=== PATIENT | male | born 1940 | race Caucasian/White ===

== ENCOUNTER 2017-02-14 14:18 | Inpatient (IN) | payer MEDICARE ==
[2017-02-14 14:57] LABS: Hematocrit 49.7 % (42.0-52.0); Red Blood Cell (RBC) Count 5.29 mill/uL (4.70-6.10); White Blood Cell (WBC) Count 21.2 thou/uL (4.8-10.8)
[2017-02-14 15:03] LABS: Prothrombin Time 13.8 SEC (12.0-14.7)
[2017-02-14 15:04] LABS: PTT 27.4 SEC (22.9-36.1)
[2017-02-14 15:14] LABS: Band 16 % (5-11); Neutrophil 69 % (42-75); Reactive Lymphocytes 3 % (0-10)
[2017-02-14 15:26] LABS: ALT (SGPT) 19 U/L (8-55); AST (SGOT) 25 U/L (5-34); Alkaline Phosphatase 80 U/L (40-150); Anion Gap 20 mmol/L (10-20); BUN (Urea Nitrogen) 16 mg/dL (8.4-25.7); Bilirubin, Total 0.9 mg/dL (0.2-1.2); Calc. Creatinine Clearance 0 mL/min (70-130); Calcium 10.2 mg/dL (7.8-10.44); Carbon Dioxide 20 mmol/L (23-31); Chloride 101 mmol/L (98-107); Estimated GFR-MDRD 38; Globulin 5.2 g/dL (2.4-3.5); Protein, Total 9.5 g/dL (5.8-8.1)
[2017-02-14] MEDS ORDERED: ISOVUE-370 76%-LOCM 1 ML ONE (16:02)
[2017-02-14] MEDS ORDERED: Iopamidol 370 76% 50 ML VIAL FS ONE (16:02)
[2017-02-14] MEDS ORDERED: Ondansetron HCl/PF 4 MG/2 ML Vial ONE (17:19)
[2017-02-14] MEDS ORDERED: Sodium Chloride 0.9% 1,000 ML IV SCH (20:48)
--- NOTE | 2017-02-14 21:37 | CT ---
CT ABDOMEN WITH IV CONTRAST CT PELVIS WITH IV CONTRAST 02/14/17 HISTORY: Ulcerative colitis post colectomy. Chronic diarrhea. Patient presents with hematochezia for multiple days. Nausea and vomiting started today. Patient also reports abdominal pain that is new since last week. COMPARISON: 09/02/07. FINDINGS: There is bibasilar atelectasis. There is evidence of prior granulomatous disease with right hilar ca lcified lymph nodes and calcified granuloma at the right lung base. Calcified granuloma is also seen within the right hepatic lobe. Vascular calcifications are seen in the coronary arteries as well as involving the abdominal aorta a nd iliac arteries. There is an increased density structure in the region of the gallbladder with peripheral calcificati ons. This does not have a normal appearance for gallbladder. 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 However, this does not have normal appearance of the gallbladder and is very small in size with this ovoid increased densi ty structure measuring 3 cm x 2.1 cm. There is decreased attenuation of the liver which may be related to mild fatty infiltration. The spl een, pancreas, bilateral adrenal glands, kidneys, and urinary bladder demonstrate a normal CT appear ance. There is evidence of a colectomy with residual colon seen within the lower midline of the pelvis wit h postsurgical changes related to anastomosis of the rectum. There is mild thickening involving the residual colon which could be related to colitis. Areas of minimal stranding is seen adjacent to por tions of the colon. The opacified small bowel is normal in caliber. There is a large ventral abdominal wall hernia which contains intra-abdominal fat and loops of small bowel, but there is no bowel obstruction and the defect is large in size. No free fluid or fluid collection is seen in the abdomen or pelvis. IMPRESSION: 1. Colectomy with only small amount of remaining colon. The residual colon is thickened with mi nimal stranding adjacent to a portion of the colon. Findings are worrisome for colitis. There is no fluid collection seen to suggest an abscess. No free intraperitoneal gas is identified. 2. Increased density oval shaped structure in the region of the gallbladder fossa. This does no t have the normal appearance for the gallbladder, but may represent a decompressed gallbladder and i ncreased density may be related to sludge within the decompressed gallbladder; however, the sousa o f this structure are calcified. 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 Correlation for p rior surgery in the region of the gallbladder is recommended. 3. Large ventral abdominal wall hernia which contains fat and multiple loops of small bowel. Th ere is no bowel obstruction present. POS: ZACH
[2017-02-14] MEDS ORDERED: Dextrose 5% in Water 1,000 ML IV PRN (22:13)
[2017-02-14] MEDS ORDERED: Dextrose 50% Abboject 50 ML SYRINGE SLOW IVP PRN (22:13)
[2017-02-14] MEDS: Sodium Chloride 0.9% 1,000 ML IV SCH (22:25)
--- NOTE | 2017-02-14 23:13 | HP ---
PRIMARY CARE PHYSICIAN: Dr. Brown. CHIEF COMPLAINT: Diarrhea and abdominal pain. HISTORY OF PRESENT ILLNESS: Mr. Basurto is a pleasant 76-year-old gentleman who presented to the [facility] room after having a severe bout of diarrhea starting yesterday. He said he had 3 fairly large diarrhea stools yesterday and then 3 this morning. He says that he was going to the table to make a log of his diarrhea as his doctorate of chiropractic had requested. When he stood up to do this, he got very dizzy and lightheaded and almost blacked out. He says that he basically fell to the ground and then had diarrhea all the way from one end of the room to the other. He also says that he has been having some blood in his stools almost daily as well as cramping abdominal pain and low grade fever . Dr. Gore was notified from the emergency room and it is requested that he be admitted and starte d on IV steroids. No antibiotics at this time for recurrence of ulcerative colitis. The patient sa ys that his problems with ulcerative colitis started in September when he was diagnosed and he has been roman ving some difficulty with diarrhea, and blood in the stool off and on since then. REVIEW OF SYSTEMS: Constitutional: There have been subjective low-grade fevers. He has had a coup le of episodes of night sweats, no weight loss. HEENT: He denies any headaches. He has had some d izziness and lightheadedness, no sore throat, rhinorrhea, neck pain, no adenopathy. Pulmonary: No hemoptysis, no cough, no wheezing. Cardiovascular: He says he has had occasional chest pain off an d on and some dyspnea, but he says he has been seen by grocery manager in the past as well as a pulmono logist and was told that some of his symptoms are due to his diaphragm and after he had surgery, he has a decrease in his diaphragmatic excursion. Gastrointestinal: As the history of present illness . Genitourinary: No urinary frequency, hematuria, no hesitancy. Neurologic: No focal weakness, n umbness, no seizures. Psychiatric: No symptoms of anxiety or depression. Skin/Integument: No ski n changes. No rash. PAST MEDICAL HISTORY: Significant for ulcerative colitis, diabetes mellitus, cerebral vascular dise ase which is secondary to antiphospholipid syndrome. PAST SURGICAL HISTORY: He has had a colectomy and colostomy, but then had a reanastomosis, parathyr oidectomy and artificial lenses placed in his eyes. ALLERGIES: No known drug allergies. SOCIAL HISTORY: He is a former smoker. He quit 9 years ago. He used to smoke a pack a day for abo ut 50 years. Denies any alcohol use. He is . FAMILY HISTORY: No history of any inheritable diseases. CURRENT MEDICATIONS: Include aspirin 81 mg 2 tablets daily, pravastatin 10 mg daily, metformin 1000 mg daily, Uceris 9 mg daily, losartan 25 mg daily, Lomotil 2.5 mg daily, VSL#3 112.5 billion cell d aily. PHYSICAL EXAMINATION: GENERAL: He is alert and oriented. He appears to be in no acute distress. VITAL SIGNS: Blood pressure 126/79, heart rate 106, respiratory rate of 20, temperature is 97.7. HEENT: Pupils are equal, round, and reactive. Extraocular muscles are intact. Sclerae are anicter ic. Throat no erythema, no exudates. NECK: No adenopathy, no bruits. LUNGS: Clear. No wheezing, no rales. CARDIOVASCULAR: He has a normal S1, S2. There is no S3 or S4. No murmurs, clicks or rubs. ABDOMEN: Soft. He has some diffuse tenderness. There is no rebound or guarding. EXTREMITIES: There is no edema. NEUROLOGICALLY: The exam is nonfocal. SIGNIFICANT LABORATORY DATA: White blood cell count was 21.2, hemoglobin 16.5, hematocrit is 49.7, platelet count is 399. Sodium 136, potassium 5.1, chloride is 101, CO2 is 20, BUN of 16, creatinine 1.7 and glucose was 200, lactic acid was elevated at 3.0. INR was 1.1. ASSESSMENT AND PLAN: This is a 76-year-old gentleman that presents with acute on chronic diarrhea, which has been worse in the last few days. He also suffered a presyncopal episode likely as a resul t of volume depletion from the diarrhea. He will be admitted to the medical floor, started on IV fl uids as well as IV steroids and we will consult Gastroenterology for further recommendations. Stool studies have already been done from the emergency room for C. diff and Campylobacter to rule out light perimposed infection. Further recommendations will be dependent on how the patient responds to the IV steroids.
[2017-02-15] MEDS: Acetaminophen 325 MG TAB PO PRN ×2 (00:07→05:41)
[2017-02-15 05:57] LABS: Anion Gap 12 mmol/L (10-20); BUN (Urea Nitrogen) 16 mg/dL (8.4-25.7); Calc. Creatinine Clearance 70 mL/min (70-130); Calcium 8.5 mg/dL (7.8-10.44); Carbon Dioxide 22 mmol/L (23-31); Chloride 106 mmol/L (98-107); Estimated GFR-MDRD 51
[2017-02-15 06:15] LABS: #Eosinphils 0.3 thou/uL (0.0-0.7); #Lymphocytes 3.2 thou/uL (1.20-3.40); #Neutrophils 6.3 thou/uL (1.40-6.50); %Basophils 0.3 % (0.0-1.0); %Lymphocytes 29.4 % (21.0-51.0); %Monocytes 9.5 % (0.0-10.0); Mean Platelet Volume 7.5 fL (7.4-10.4); Red Blood Cell (RBC) Count 4.16 mill/uL (4.70-6.10); White Blood Cell (WBC) Count 10.9 thou/uL (4.8-10.8)
[2017-02-15] MEDS: Enoxaparin Sodium 30 MG/0.3 ML SYRINGE SC SCH (09:32)
[2017-02-15] MEDS: Sodium Chloride 0.9% 1,000 ML IV SCH (12:28)
[2017-02-15] MEDS: HumaLOG 300 UNITS/3 ML VIAL SC PRN ×2 (12:28→18:03)
--- NOTE | 2017-02-15 15:54 | PDOC.PN ---
- Subjective Encounter Start Date: 02/15/17 Encounter Start Time: 14:20 Subjective: still has diarrhea with blood in it -: has had atleast 6 overnight loose stools -: no sob - Objective Resuscitation Status: Resuscitation Status FULL:Full Resuscitation MAR Reviewed: Yes Vital Signs & Weight: Vital Signs (12 hours) Temp Pulse Resp BP Pulse Ox 02/15/17 11:46 97.5 F L 66 16 127/73 02/15/17 08:16 97.1 F L 67 18 106/65 94 L 02/15/17 08:00 97.1 F L 67 18 02/15/17 04:00 98.4 F 71 20 119/72 93 L Weight Weight 231 lb 6 oz I&O: 02/14/17 02/15/17 02/16/17 06:59 06:59 06:59 Intake Total 1470 Balance 1470 Result Diagrams: 02/15/17 05:21 02/15/17 05:21 Additional Labs: Accuchecks 02/15/17 02/15/17 11:45 06:06 POC Glucose 256 H 141 H Phys Exam - Physical Examination HEENT: PERRLA, sclera anicteric dry mucosa Neck: no JVD, supple Respiratory: no wheezing, no rales Cardiovascular: RRR, no significant murmur Gastrointestinal: soft, non-tender, positive bowel sounds Musculoskeletal: no edema, pulses present Neurological: non-focal, moves all 4 limbs Psychiatric: A&O x 3 Dx/Plan (1) Bacteremia due to Klebsiella pneumoniae Code(s): R78.81 - BACTEREMIA Status: Acute (2) ulcerative colitis flare Status: Acute (3) Sepsis Code(s): A41.9 - SEPSIS, UNSPECIFIED ORGANISM Status: Acute Comment: sec to klebsiella (4) DM type 2 (diabetes mellitus, type 2) Status: Chronic Qualifiers: Diabetes mellitus complication status: with unspecified complications Diabetes mellitus cheese cooker insulin use: without mcfp use Qualified Code( s): E11.8 - Type 2 diabetes mellitus with unspecified complications (5) MAY (acute kidney injury) Code(s): N17.9 - ACUTE KIDNEY FAILURE, UNSPECIFIED Status: Acute Comment: resolving (6) Dyslipidemia Code(s): E78.5 - HYPERLIPIDEMIA, UNSPECIFIED Status: Chronic (7) Metabolic acidosis Code(s): E87.2 - ACIDOSIS Status: Acute - Plan urinalysis, culture stat -: unclear source of klebsiella bacteremia at present -: CT chest to r/o infiltrate -: wbc down to 10 from 21 -: cefepime and levaquin, gentle hydration * . 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 Has large ventral hernia. Review of Systems - Medications/Allergies Allergies/Adverse Reactions: Allergies Allergy/AdvReac Type Severity Reaction Status Date / Time No Known Allergies Allergy Verified 02/14/17 21:20 Medications: Current Medications Acetaminophen (Tylenol) 650 mg PO Q4H PRN PRN Reason: Headache/Fever or Pain Last Admin: 02/15/17 05:41 Dose: 650 mg Dextrose/Water (Dextrose 50%) 25 gm SLOW IVP PRN PRN PRN Reason: Hypoglycemia Enoxaparin Sodium (Lovenox) 30 mg SC 0900 [facility] Last Admin: 02/15/17 09:32 Dose: 30 mg Glucagon (Glucagon) 1 mg IM PRN PRN PRN Reason: Hypoglycemia Dextrose/Water (D5w) 1,000 mls @ 0 mls/hr IV .Q0M PRN; As Directed PRN Reason: Hypoglycemia Sodium Chloride (Normal Saline 0.9%) 1,000 mls @ 75 mls/hr IV .[id number] [facility] Last Admin: 02/15/17 12:28 Dose: 1,000 mls Cefepime HCl 1 gm/ Sodium (Chloride) 100 mls @ 200 mls/hr IVPB 0400,1600 [facility] Levofloxacin 500 mg/ Device 100 mls @ 100 mls/hr IVPB Q24HR [facility] Insulin Human Lispro (Humalog) 0 units SC .MODERATE SLIDING SC PRN PRN Reason: Moderate Correctional Scale Last Admin: 02/15/17 12:28 Dose: 6 unit Insulin Human Lispro (Humalog) 0 units SC .BEDTIME SLIDING SC PRN PRN Reason: Bedtime Correctional Scale Methylprednisolone Sodium Succinate (Solu-Medrol) 20 mg IVP Q8HR [facility] Last Admin: 02/15/17 14:42 Dose: 20 mg Sodium Chloride (Flush - Normal Saline) 10 ml IVF Q12HR [facility] Last Admin: 02/15/17 09:33 Dose: 10 ml Sodium Chloride (Flush - Normal Saline) 10 ml IVF PRN PRN PRN Reason: Saline Flush
--- NOTE | 2017-02-15 17:12 | CT ---
CT OF THE THORAX WITHOUT IV CONTRAST: INDICATION: Concern for an infiltrate. FINDINGS: The exam is compared to a prior CT of the chest dated 05/03/08. FINDINGS: There are prominent calcified lymph nodes within the mediastinum and right hilar region. There are scattered vascular calcifications involving the aorta and coronary arteries. There is calcified gra nuloma within the right lower lobe. There is scattered subsegmental volume loss within both lower l obes. There is airspace opacity seen within the inferior lingula. No pleural effusion is evident. No pneumothorax is demonstrated. The porcelain gallbladder is similar-appearing. No definite acute osseous abnormality is evident. IMPRESSION: 1. Airspace opacity in the region of the lingula could be related to subsegmental volume loss; ibarra cody, early infiltrate cannot be entirely excluded. Recommend correlation with the clinical exam. 2. Findings of prior granulomatous disease. 3. Calcified wall seen within the gallbladder suspicious for porcelain gallbladder. 4. Other chronic findings as above. POS: ZACH
[2017-02-15] MEDS: Cefepime 1 GM in Sodium Chloride 0.9% 100 ML IVPB SCH (17:17)
[2017-02-15 17:18] LABS: Bilirubin Negative (Negative); Blood, Urine Small (Negative); Glucose, Urine (Dipstick) 250 mg/dL (Negative); Ketone, Urine Negative (Negative); Nitrite Negative (Negative); Protein, Urine (Dipstick) Negative (Neg-Trace); Urobilinogen 0.2 mg/dL (0.2-1.0)
[2017-02-15 17:19] LABS: Bacteria/HPF None Seen HPF (None Seen); Hyaline Casts/LPF 0-3 HYALINE CAST LPF (0-3 Hyaline); Squamous Epithelial None Seen HPF (0-3); WBC/HPF 0-3 HPF (0-3)
--- NOTE | 2017-02-15 18:05 | CON ---
DATE OF CONSULTATION: 02/15/2017 GASTROENTEROLOGY CONSULTATION CHIEF COMPLAINT: Worsening diarrhea, blood in the stool, and syncopal episode. HISTORY OF PRESENT ILLNESS: Mr. Basurto is a 76-year-old man who has had persistent diarrhea since . He has a history of ulcerative colitis and has been having adjustment of outpatient medicati ons after this point with inadequate control. Yesterday morning, he woke up early in the morning an d had multiple liquidy stools. He then had a syncopal episode and at that point, decided to come on to the hospital for further care. He has had some generalized aching abdominal pain, but no focal p ain. He did have an episode of nausea and vomiting yesterday morning, but that has since resolved. He has been on a full liquid diet and requesting solid food. He has had red blood mixed with water y stools; however, since starting IV steroids last night, today the stools have become less bloody a nd they are still liquidy and up to multiple times per hour. He has had around 5-pound weight loss net over the last 6 months, but his weight has fluctuated over that time period. He has had no feve r associated with this episode. No chest pain or shortness of breath. Regarding ulcerative colitis, he underwent colon resection in 2007 for diverticulitis. He ultimatel y ended up at about 60 cm of colon removed at that time. He presented in 2012 with diarrhea. Colon oscopy was performed which showed chronic colitis of the rectum and also just above the anastomosis between the right colon and the rectum. The cecum is about 30 cm from the anal verge. He was treat ed with Lialda 2 pills per day and ultimately went in remission. He returned in 07/2016 with hemato chezia and diarrhea. Colonoscopy was repeated on 08/10/2016 which showed distal chronic proctitis. Again, the biopsies were suggestive of ulcerative colitis. He was given Canasa but the symptoms fa il to improve. He in fact had discomfort placing the suppositories and this was stopped. He held m etformin without improvement. He was given Uceris initially with some improvement and ultimately en ded up with a repeat course of Uceris, which is on now, but has had inadequate response. He gets di arrhea with some leakage of red stool. Higher doses of Lialda did not help and perhaps made things worse, so this has been held over the last week and verified, that is not a paradoxical reaction to it. He has had no improvement after withholding the Lialda for a week. PAST MEDICAL HISTORY: Chronic ulcerative proctitis, diabetes mellitus type 2, stroke associated wit h antiphospholipid syndrome, hypertension, hyperlipidemia, and osteoarthritis. PAST SURGICAL HISTORY: Colon resection and colostomy reversal. He is ultimately had about 60 cm of his colon resected. His cecum was at 30 cm from the anal verge. He has had a parathyroidectomy. He had incisional hernia repair with mesh; however, this has since recurred. FAMILY HISTORY: Negative for GI malignancy. SOCIAL HISTORY: No alcohol, tobacco or drugs. ALLERGIES: GLYBURIDE, TRADJENTA. MEDICATIONS PRIOR TO ADMISSION: Uceris 9 mg daily, VSL 1 packet twice a day, currently Lialda 3 tab lets daily is on hold. Has been taking Lomotil as needed, scheduled up to 5 times per day. He take s aspirin, pravastatin, losartan, and currently metformin has been held as well. REVIEW OF SYSTEMS: Negative x10 systems reviewed except as stated in the history of present illness . PHYSICAL EXAMINATION: VITAL SIGNS: Temperature 97.5, pulse 66, blood pressure 127/73. GENERAL: He is in no acute distress. He is alert and oriented x3. EYES: Have no scleral icterus. OROPHARYNX: Clear without lesions. NECK: No cervical or supraclavicular lymphadenopathy. LUNGS: Clear to auscultation bilaterally. HEART: Regular rate and rhythm without murmur. ABDOMEN: Soft, nontender, and nondistended. Bowel sounds are present. EXTREMITIES: No lower extremity edema. Stool studies are negative for C. diff, positive for lactof holden, negative for Campylobacter and Shiga toxin, culture has been previously negative. LABORATORY DATA: White blood cell count is 10.9, down from 21 yesterday; hemoglobin is 13.1, down f rom 16.5 yesterday; platelets 314. INR 1.1, creatinine 1.37 down from 1.76 yesterday, albumin 4.3. IMPRESSION: 1. Exacerbation of chronic ulcerative colitis. This is complicated by the previous resection of hi s colon with decreased absorptive capacity. He has had active inflammation in the rectum confirmed by colonoscopy this past August. His symptoms really have not been controlled since that time. He h as failed to respond to Lialda and Canasa. He has failed to respond to Uceris. He has previously b een hesitant to take additional immunosuppressive medications; however, at this point he has failed outpatient treatment with medical therapy and he is requiring IV steroids and I think he will need t o start an anti-TNF as the next step. He has not had improvement by withholding Lialda or withholdi ng metformin. CT scan shows continued thickening and inflammatory changes around the rectum. 2. He had a CT scan performed in the ER yesterday which shows a new change of contracted gallbladde r, possibly with calcified sousa or possible to porcelain gallbladder. He has not had a prior gallb ladder resection. This will require additional imaging once we get the acute flare of the ulcerativ e colitis under better control. RECOMMENDATIONS: 1. Solu-Medrol IV 20 mg q.8 hours. 2. Advance his diet. 3. I would expect that he should improve over the next couple of days on IV steroids. At that poin t, we will need to start an anti-TNF. He and his have concerns about getting back to the [facility] or outpatient center for infusions with Remicade. Therefore, Humira might be a better option fo r him. 4. Over the next couple of days, eventually get his diarrhea under better control with the steroids . We will need to repeat imaging of the gallbladder and I will discuss this with Dr. Arteaga as phyllis bustos
[2017-02-16] MEDS: Sodium Chloride 0.9% 1,000 ML IV SCH ×3 (04:28→20:53)
[2017-02-16] MEDS: Cefepime 1 GM in Sodium Chloride 0.9% 100 ML IVPB SCH ×2 (04:28→15:19)
[2017-02-16] MEDS: HumaLOG 300 UNITS/3 ML VIAL SC PRN ×4 (06:25→21:01)
[2017-02-16] MEDS: Enoxaparin Sodium 30 MG/0.3 ML SYRINGE SC SCH (08:56)
--- NOTE | 2017-02-16 16:40 | PDOC.PN ---
- Subjective Encounter Start Date: 02/16/17 Encounter Start Time: 13:00 Subjective: is sitting in chair, daughter at bedside -: no abd pain, still has diarrhea, no nausea -: no cough or expectoration, no urinary freq or urgency - Objective Resuscitation Status: Resuscitation Status FULL:Full Resuscitation MAR Reviewed: Yes Vital Signs & Weight: Vital Signs (12 hours) Temp Pulse Resp BP Pulse Ox 02/16/17 11:47 97.6 F 62 16 153/78 H 95 02/16/17 08:00 97.2 F L 66 16 02/16/17 07:56 97.2 F L 66 16 135/75 95 Weight Weight 231 lb 6 oz I&O: 02/15/17 02/16/17 02/17/17 06:59 06:59 06:59 Intake Total 1470 1400 Balance 1470 1400 Result Diagrams: 02/15/17 05:21 02/15/17 05:21 Additional Labs: Accuchecks 02/16/17 02/16/17 02/16/17 16:08 11:11 04:10 POC Glucose 220 H 226 H 246 H 02/15/17 02/15/17 21:21 17:16 POC Glucose 199 H 167 H Phys Exam - Physical Examination HEENT: PERRLA, moist MMs Neck: no JVD, supple Respiratory: no wheezing, no rales Cardiovascular: RRR, no significant murmur Gastrointestinal: soft, non-tender, positive bowel sounds Musculoskeletal: no edema, pulses present Neurological: non-focal, moves all 4 limbs Psychiatric: A&O x 3 Dx/Plan (1) Bacteremia due to Klebsiella pneumoniae Code(s): R78.81 - BACTEREMIA Status: Acute (2) ulcerative colitis flare Status: Acute (3) Sepsis Code(s): A41.9 - SEPSIS, UNSPECIFIED ORGANISM Status: Acute Comment: sec to klebsiella (4) DM type 2 (diabetes mellitus, type 2) Status: Chronic Qualifiers: Diabetes mellitus complication status: with unspecified complications Diabetes mellitus workforce manager insulin use: without mcfp use Qualified Code( s): E11.8 - Type 2 diabetes mellitus with unspecified complications (5) MAY (acute kidney injury) Code(s): N17.9 - ACUTE KIDNEY FAILURE, UNSPECIFIED Status: Acute Comment: resolving (6) Dyslipidemia Code(s): E78.5 - HYPERLIPIDEMIA, UNSPECIFIED Status: Chronic (7) Metabolic acidosis Code(s): E87.2 - ACIDOSIS Status: Acute (8) UTI (urinary tract infection) Status: Acute Qualifiers: Urinary tract infection type: acute cystitis Hematuria presence: without hematuria Qualified Code(s): N30.00 - Acute cystitis without hematuria - Plan is on cefepime and levaquin -: has klebsiella 1/2 blood cs -: urine cs was sent yesterday after starting antibiotics -: is on steroids for UC flare up -: may have to complete antibiotics prior to starting humira * . Review of Systems - Medications/Allergies Allergies/Adverse Reactions: Allergies Allergy/AdvReac Type Severity Reaction Status Date / Time No Known Allergies Allergy Verified 02/14/17 21:20 Medications: Current Medications Acetaminophen (Tylenol) 650 mg PO Q4H PRN PRN Reason: Headache/Fever or Pain Last Admin: 02/15/17 05:41 Dose: 650 mg Dextrose/Water (Dextrose 50%) 25 gm SLOW IVP PRN PRN PRN Reason: Hypoglycemia Enoxaparin Sodium (Lovenox) 30 mg SC 0900 [facility] Last Admin: 02/16/17 08:56 Dose: 30 mg Glucagon (Glucagon) 1 mg IM PRN PRN PRN Reason: Hypoglycemia Dextrose/Water (D5w) 1,000 mls @ 0 mls/hr IV .Q0M PRN; As Directed PRN Reason: Hypoglycemia Sodium Chloride (Normal Saline 0.9%) 1,000 mls @ 75 mls/hr IV .[id number] [facility] Last Admin: 02/16/17 14:03 Dose: Not Given Cefepime HCl 1 gm/ Sodium (Chloride) 100 mls @ 200 mls/hr IVPB 0400,1600 [facility] Last Admin: 02/16/17 15:19 Dose: 100 mls Levofloxacin 500 mg/ Device 100 mls @ 100 mls/hr IVPB Q24HR [facility] Last Admin: 02/16/17 16:09 Dose: 100 mls Insulin Human Lispro (Humalog) 0 units SC .MODERATE SLIDING SC PRN PRN Reason: Moderate Correctional Scale Last Admin: 02/16/17 16:12 Dose: 4 unit Insulin Human Lispro (Humalog) 0 units SC .BEDTIME SLIDING SC PRN PRN Reason: Bedtime Correctional Scale Methylprednisolone Sodium Succinate (Solu-Medrol) 20 mg IVP Q8HR [facility] Last Admin: 02/16/17 13:18 Dose: 20 mg Sodium Chloride (Flush - Normal Saline) 10 ml IVF Q12HR [facility] Last Admin: 02/16/17 08:59 Dose: Not Given Sodium Chloride (Flush - Normal Saline) 10 ml IVF PRN PRN PRN Reason: Saline Flush
--- NOTE | 2017-02-16 18:42 | PRG ---
DATE OF SERVICE: 02/16/2017 SUBJECTIVE: Mr. Basurto's diarrhea is improving. He feels better now than he has in years. He has n o abdominal pain. OBJECTIVE: VITAL SIGNS: Temperature 98.3, pulse 65, blood pressure 126/66. GENERAL: He is in no acute distress. He is alert and oriented x3. LUNGS: Clear to auscultation bilaterally. HEART: Regular rate and rhythm. ABDOMEN: Soft, nontender, nondistended, bowel sounds are present. EXTREMITIES: Trace lower extremity edema. IMPRESSION: 1. Exacerbation of chronic ulcerative colitis. He has had marked improvement with intravenous ster oids. I would continue these for another day or two and then transition to prednisone. Plan will b e to follow up in the office after a couple of weeks and depending on his response to the prednisone if this does initiate remission, then we could potentially restart 5-ASA compound and maintain jaswinder ssion with that. If he flares again after that, they will likely need to start Humira. I would rat her avoid Imuran. 2. Contractured gallbladder with calcified sousa. This will require followup imaging after the mor e acute issues with his colitis have improved. 3. Klebsiella bacteremia with some small infiltrate by chest CT in the lung. No obvious urinary so urce. RECOMMENDATIONS: 1. Continue Solu-Medrol. 2. Currently his Lialda has been held and efforts to rule out paradoxical reaction to that. He did not have significant improvement in his symptoms after holding the Lialda for a week and is really only improved after starting IV steroids. 3. He is on broad-spectrum antibiotics for the Klebsiella positive blood culture.
[2017-02-17] MEDS: Cefepime 1 GM in Sodium Chloride 0.9% 100 ML IVPB SCH (03:28)
[2017-02-17] MEDS: HumaLOG 300 UNITS/3 ML VIAL SC PRN ×3 (05:30→20:38)
[2017-02-17] MEDS: Enoxaparin Sodium 30 MG/0.3 ML SYRINGE SC SCH (07:58)
[2017-02-17] MEDS: Sodium Chloride 0.9% 1,000 ML IV SCH ×2 (15:55→23:48)
--- NOTE | 2017-02-17 16:22 | PRG ---
DATE OF SERVICE: 02/17/2017 SUBJECTIVE: Mr. Basurto has increased volume stool output today; however, the stool seemed to have a little bit more form. He continues to pass blood with the stool. His abdominal pain is resolved. OBJECTIVE: VITAL SIGNS: Temperature 97.4, pulse 73, blood pressure 132/74. GENERAL: He is in no acute distress, awake and alert. LUNGS: Clear to auscultation bilaterally. HEART: Regular rate and rhythm. ABDOMEN: Soft, nontender, nondistended. Bowel sounds are present. He has large midline hernia. EXTREMITIES: No lower extremity edema. IMPRESSION: 1. Exacerbation of chronic ulcerative colitis. It seemed that he had had immediate improvement wit h IV steroids yesterday; however, he now reports increased volume of stool output along with ongoing bleeding. He has increased his oral intake and also has been on broad spectrum antibiotics which m ight be compounding the diarrhea more so than worsening inflammation. Currently, he has been off th e Lialda for about a week and a half. The goal of holding this was to rule out a paradoxical reacti on as a cause of his worsening diarrhea over the last few months. So far, the diarrhea has continue d despite holding the mesalamine. 2. Klebsiella bacteremia. He is on levofloxacin for this. There was a small infiltrate on the CT of the chest in the lung. There was no obvious urinary source with a negative culture. 3. Contractured gallbladder with calcified sousa. Follow up imaging will be required after the acu te colitis is improved. RECOMMENDATIONS: 1. Continue Solu-Medrol 20 mg IV q.8 h. He will likely require this for at least another couple of days. 2. Add Probiotic in light of the worsening diarrhea on the levofloxacin. 3. Depending on his response to the current treatment, the next step may be anti-TNF with Humira. His favoring Humira over Remicade due to potential issues with transportation to get to the infusion center as an outpatient.
--- NOTE | 2017-02-17 16:48 | PDOC.PN ---
- Subjective Encounter Start Date: 02/17/17 Encounter Start Time: 14:00 Subjective: still has diarrhea with blood and mucus -: no abd pain or nausea -: no cough or expectoration - Objective Resuscitation Status: Resuscitation Status FULL:Full Resuscitation MAR Reviewed: Yes Vital Signs & Weight: Vital Signs (12 hours) Temp Pulse Resp BP Pulse Ox 02/17/17 08:09 97.4 F L 73 16 132/74 97 02/17/17 08:00 97.4 F L 73 16 Weight Weight 231 lb 6 oz I&O: 02/16/17 02/17/17 02/18/17 06:59 06:59 06:59 Intake Total 1400 Balance 1400 Result Diagrams: 02/15/17 05:21 02/15/17 05:21 Additional Labs: Accuchecks 02/17/17 02/17/17 02/16/17 12:18 05:00 20:36 POC Glucose 278 H 220 H 210 H Phys Exam - Physical Examination HEENT: PERRLA, moist MMs Neck: no JVD, supple Respiratory: no wheezing, no rales Cardiovascular: RRR, no significant murmur Gastrointestinal: soft, non-tender, positive bowel sounds Musculoskeletal: no edema, pulses present Neurological: non-focal, moves all 4 limbs Psychiatric: A&O x 3 Dx/Plan (1) Bacteremia due to Klebsiella pneumoniae Code(s): R78.81 - BACTEREMIA Status: Acute (2) ulcerative colitis flare Status: Acute (3) Sepsis Code(s): A41.9 - SEPSIS, UNSPECIFIED ORGANISM Status: Acute Comment: sec to klebsiella (4) DM type 2 (diabetes mellitus, type 2) Status: Chronic Qualifiers: Diabetes mellitus complication status: with unspecified complications Diabetes mellitus senior care insulin use: without occ ther use Qualified Code( s): E11.8 - Type 2 diabetes mellitus with unspecified complications (5) MAY (acute kidney injury) Code(s): N17.9 - ACUTE KIDNEY FAILURE, UNSPECIFIED Status: Acute Comment: resolving (6) Dyslipidemia Code(s): E78.5 - HYPERLIPIDEMIA, UNSPECIFIED Status: Chronic (7) Metabolic acidosis Code(s): E87.2 - ACIDOSIS Status: Acute (8) UTI (urinary tract infection) Status: Acute Qualifiers: Urinary tract infection type: acute cystitis Hematuria presence: without hematuria Qualified Code(s): N30.00 - Acute cystitis without hematuria - Plan continue levaquin for klebsiella bacteremia -: is on steroids iv for uc flare up -: labs in am -: is tolerating oral diet * . Review of Systems - Medications/Allergies Allergies/Adverse Reactions: Allergies Allergy/AdvReac Type Severity Reaction Status Date / Time No Known Allergies Allergy Verified 02/14/17 21:20 Medications: Current Medications Acetaminophen (Tylenol) 650 mg PO Q4H PRN PRN Reason: Headache/Fever or Pain Last Admin: 02/15/17 05:41 Dose: 650 mg Dextrose/Water (Dextrose 50%) 25 gm SLOW IVP PRN PRN PRN Reason: Hypoglycemia Enoxaparin Sodium (Lovenox) 30 mg SC 0900 [facility] Last Admin: 02/17/17 07:58 Dose: 30 mg Glucagon (Glucagon) 1 mg IM PRN PRN PRN Reason: Hypoglycemia Dextrose/Water (D5w) 1,000 mls @ 0 mls/hr IV .Q0M PRN; As Directed PRN Reason: Hypoglycemia Sodium Chloride (Normal Saline 0.9%) 1,000 mls @ 75 mls/hr IV .[id number] [facility] Last Admin: 02/17/17 15:55 Dose: 1,000 mls Levofloxacin 500 mg/ Device 100 mls @ 100 mls/hr IVPB Q24HR [facility] Last Admin: 02/17/17 16:00 Dose: 100 mls Insulin Human Lispro (Humalog) 0 units SC .MODERATE SLIDING SC PRN PRN Reason: Moderate Correctional Scale Last Admin: 02/17/17 16:01 Dose: 4 unit Insulin Human Lispro (Humalog) 0 units SC .BEDTIME SLIDING SC PRN PRN Reason: Bedtime Correctional Scale Last Admin: 02/16/17 21:01 Dose: 2 unit Methylprednisolone Sodium Succinate (Solu-Medrol) 20 mg IVP Q8HR [facility] Last Admin: 02/17/17 13:20 Dose: 20 mg Sodium Chloride (Flush - Normal Saline) 10 ml IVF Q12HR [facility] Last Admin: 02/17/17 08:02 Dose: Not Given Sodium Chloride (Flush - Normal Saline) 10 ml IVF PRN PRN PRN Reason: Saline Flush
[2017-02-18 05:21] LABS: #Basophils 0.1 thou/uL (0.0-0.2); #Eosinphils 0.1 thou/uL (0.0-0.7); #Lymphocytes 1.7 thou/uL (1.20-3.40); #Monocytes 0.7 thou/uL (0.11-0.59); #Neutrophils 11.6 thou/uL (1.40-6.50); %Basophils 0.5 % (0.0-1.0); %Eosinophils 0.6 % (0.0-10.0); %Lymphocytes 12.1 % (21.0-51.0); %Monocytes 4.7 % (0.0-10.0); Hematocrit 39.5 % (42.0-52.0); Mean Platelet Volume 8.1 fL (7.4-10.4); Red Blood Cell (RBC) Count 4.15 mill/uL (4.70-6.10); White Blood Cell (WBC) Count 14.2 thou/uL (4.8-10.8)
[2017-02-18 05:41] LABS: Anion Gap 13 mmol/L (10-20); BUN (Urea Nitrogen) 23 mg/dL (8.4-25.7); Calc. Creatinine Clearance 89 mL/min (70-130); Calcium 8.5 mg/dL (7.8-10.44); Carbon Dioxide 17 mmol/L (23-31); Chloride 110 mmol/L (98-107); Estimated GFR-MDRD 67
[2017-02-18] MEDS: HumaLOG 300 UNITS/3 ML VIAL SC PRN ×4 (05:50→21:07)
[2017-02-18] MEDS: Enoxaparin Sodium 30 MG/0.3 ML SYRINGE SC SCH (08:48)
[2017-02-18] MEDS: Sodium Chloride 0.9% 1,000 ML IV SCH (14:46)
--- NOTE | 2017-02-18 15:06 | PDOC.PN ---
- Subjective Encounter Start Date: 02/18/17 Encounter Start Time: 13:45 Subjective: no sob, has been passing large amount of urine -: still had 6 loose bm with mucus in it - Objective Resuscitation Status: Resuscitation Status FULL:Full Resuscitation MAR Reviewed: Yes Vital Signs & Weight: Vital Signs (12 hours) Temp Pulse Resp BP Pulse Ox 02/18/17 08:00 97.6 F 59 L 20 02/18/17 07:42 97.6 F 59 L 20 161/79 H 96 Weight Weight 231 lb 6 oz Result Diagrams: 02/18/17 05:06 02/18/17 05:06 Additional Labs: Accuchecks 02/18/17 02/18/17 02/17/17 11:34 05:25 20:14 POC Glucose 246 H 238 H 303 H 02/17/17 16:00 POC Glucose 233 H Phys Exam - Physical Examination HEENT: PERRLA, moist MMs Neck: no JVD, supple Respiratory: no wheezing, no rales Cardiovascular: RRR, no significant murmur Gastrointestinal: soft, non-tender, positive bowel sounds Musculoskeletal: no edema, pulses present Neurological: non-focal, moves all 4 limbs Psychiatric: A&O x 3 Dx/Plan (1) Bacteremia due to Klebsiella pneumoniae Code(s): R78.81 - BACTEREMIA Status: Acute (2) ulcerative colitis flare Status: Acute (3) Sepsis Code(s): A41.9 - SEPSIS, UNSPECIFIED ORGANISM Status: Acute Comment: sec to klebsiella (4) DM type 2 (diabetes mellitus, type 2) Status: Chronic Qualifiers: Diabetes mellitus complication status: with unspecified complications Diabetes mellitus fpc insulin use: without rn clinical documentation specialist use Qualified Code( s): E11.8 - Type 2 diabetes mellitus with unspecified complications (5) MAY (acute kidney injury) Code(s): N17.9 - ACUTE KIDNEY FAILURE, UNSPECIFIED Status: Acute Comment: resolving (6) Dyslipidemia Code(s): E78.5 - HYPERLIPIDEMIA, UNSPECIFIED Status: Chronic (7) Metabolic acidosis Code(s): E87.2 - ACIDOSIS Status: Acute (8) UTI (urinary tract infection) Status: Acute Qualifiers: Urinary tract infection type: acute cystitis Hematuria presence: without hematuria Qualified Code(s): N30.00 - Acute cystitis without hematuria - Plan home dose metformin 1g bid -: is on solumedrol of uc flare up -: RN to check the exact freq of stool ? 6times overnight per pt -: is on levaquin for klebsiella bacteremia -: wbc around 14k ?steroid effect * . Review of Systems - Medications/Allergies Allergies/Adverse Reactions: Allergies Allergy/AdvReac Type Severity Reaction Status Date / Time No Known Allergies Allergy Verified 02/14/17 21:20 Medications: Current Medications Acetaminophen (Tylenol) 650 mg PO Q4H PRN PRN Reason: Headache/Fever or Pain Last Admin: 02/15/17 05:41 Dose: 650 mg Dextrose/Water (Dextrose 50%) 25 gm SLOW IVP PRN PRN PRN Reason: Hypoglycemia Enoxaparin Sodium (Lovenox) 30 mg SC 0900 [facility] Last Admin: 02/18/17 08:48 Dose: 30 mg Glucagon (Glucagon) 1 mg IM PRN PRN PRN Reason: Hypoglycemia Dextrose/Water (D5w) 1,000 mls @ 0 mls/hr IV .Q0M PRN; As Directed PRN Reason: Hypoglycemia Sodium Chloride (Normal Saline 0.9%) 1,000 mls @ 75 mls/hr IV .[id number] [facility] Last Admin: 02/18/17 14:46 Dose: 1,000 mls Levofloxacin 500 mg/ Device 100 mls @ 100 mls/hr IVPB Q24HR [facility] Last Admin: 02/17/17 16:00 Dose: 100 mls Insulin Human Lispro (Humalog) 0 units SC .MODERATE SLIDING SC PRN PRN Reason: Moderate Correctional Scale Last Admin: 02/18/17 13:06 Dose: 4 unit Insulin Human Lispro (Humalog) 0 units SC .BEDTIME SLIDING SC PRN PRN Reason: Bedtime Correctional Scale Last Admin: 02/17/17 20:38 Dose: 4 unit Metformin HCl (Glucophage) 1,000 mg PO BID [facility] Methylprednisolone Sodium Succinate (Solu-Medrol) 20 mg IVP Q8HR [facility] Last Admin: 02/18/17 14:44 Dose: 20 mg Saccharomyces Boulardii (Florastor) 250 mg PO DAILY [facility] Simvastatin (Zocor) 10 mg PO HS [facility] Sodium Chloride (Flush - Normal Saline) 10 ml IVF Q12HR [facility] Last Admin: 02/18/17 14:45 Dose: 10 ml Sodium Chloride (Flush - Normal Saline) 10 ml IVF PRN PRN PRN Reason: Saline Flush
[2017-02-18] MEDS ORDERED: Pravastatin Sodium 20 MG TAB PO SCH (21:00)
[2017-02-18] MEDS ORDERED: metFORMIN 500 MG TAB PO SCH (21:00)
[2017-02-18] MEDS: Simvastatin 5 MG TAB PO SCH (21:02)
--- NOTE | 2017-02-18 21:11 | HP ---
HISTORY OF PRESENT ILLNESS: Mr. Basurto notes he started having quite a bit of diarrhea with some blo od and mucus. He is going to start back on metformin he reports. He has had no fever or chill. He denies any overt abdominal pain. PRESENT MEDICATIONS: Tylenol, Lovenox, insulin sliding scale, metformin 1000 mg b.i.d., Solu-Medrol 20 IV q.8 hours, Florastor, simvastatin, sodium chloride 75 mL an hour. PHYSICAL EXAMINATION: VITAL SIGNS: Temperature is 97.4, pulse 69, blood pressure 161/79. GENERAL: Patient is in no distress, sitting on his chair, eating stew. LUNGS: Clear. HEART: Regular rate and rhythm. ABDOMEN: Nontender. LABORATORY STUDIES: White count 14.2, hemoglobin 13.1, platelet count 333. INR 1.1, glucose 245, B UN and creatinine are 23 and 1.08, improved from 1.76 and 1.36 last 2 days. Sodium 136, potassium 4 .3. ASSESSMENT: 1. History of ulcerative colitis with previous resection but apparently has some residual colon lef t and has had problems with ongoing inflammation for sometime and was admitted, was started on IV st eroids which we have done, although he does not seem to have much improvement in symptoms. 2. Klebsiella pneumonia in the blood of unclear etiology. 3. 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 4. Ventral abdominal hernia. RECOMMENDATIONS: 1. Continue levofloxacin for his Klebsiella. I agree with Saccharomyces boulardii probiotics for C . diff prevention. 2. Continue methylprednisolone for his colitis. 3. With regards to the calcified gallbladder, there seems to be no evidence of acute infection, but his gallbladder dysfunction seems to be causing some diarrhea. Additionally, the metformin is prob ably going to cause him some diarrhea, which is going to make it difficult to tell if he has respond ed to treatment. 4. If patient continues to have diarrhea he may have a flex sig to assess his response to IV steroi ds and maybe biopsies to rule out other etiologies and consider TNF therapy.
[2017-02-19] MEDS: HumaLOG 300 UNITS/3 ML VIAL SC PRN ×3 (06:15→21:58)
[2017-02-19 06:29] LABS: Anion Gap 14 mmol/L (10-20); BUN (Urea Nitrogen) 24 mg/dL (8.4-25.7); Calc. Creatinine Clearance 91 mL/min (70-130); Calcium 8.7 mg/dL (7.8-10.44); Carbon Dioxide 16 mmol/L (23-31); Chloride 108 mmol/L (98-107); Estimated GFR-MDRD 68
[2017-02-19 06:37] LABS: Band 1 % (5-11); Hematocrit 41.5 % (42.0-52.0); Mean Platelet Volume 8.3 fL (7.4-10.4); Neutrophil 89 % (42-75); Red Blood Cell (RBC) Count 4.38 mill/uL (4.70-6.10); White Blood Cell (WBC) Count 16.8 thou/uL (4.8-10.8)
[2017-02-19] MEDS ORDERED: metFORMIN 500 MG TAB PO SCH (08:00)
[2017-02-19] MEDS ORDERED: Non-Formulary Item 1 EACH (Metformin Hcl [Metformin Hcl] 1,000 MG) PO SCH (08:00)
[2017-02-19] MEDS: Enoxaparin Sodium 30 MG/0.3 ML SYRINGE SC SCH (08:11)
[2017-02-19] MEDS: Saccharomyces boulardii 250 MG CAP PO SCH (08:11)
[2017-02-19] MEDS ORDERED: Insulin Detemir 100 UNITS/ML 5 UNITS in Pre-Filled Syringe 1 EACH SC SCH (09:00)
[2017-02-19] MEDS: Sodium Chloride 0.9% 1,000 ML IV SCH (10:33)
--- NOTE | 2017-02-19 12:44 | PDOC.PN ---
- Subjective Encounter Start Date: 02/19/17 Encounter Start Time: 12:40 Subjective: had 3 BM's overnight, no blood or mucus in it -: no nausea, is tolerating oral diet -: no sob/cough. Wants his iv fluids to be dc, passing lot of urine - Objective Resuscitation Status: Resuscitation Status FULL:Full Resuscitation MAR Reviewed: Yes Vital Signs & Weight: Vital Signs (12 hours) Temp Pulse Resp BP Pulse Ox 02/19/17 08:00 98.3 F 73 20 02/19/17 07:50 98.3 F 73 20 163/87 H 97 02/19/17 04:00 98.3 F 73 18 104/67 95 Weight Weight 231 lb 6 oz I&O: 02/18/17 02/19/17 02/20/17 06:59 06:59 06:59 Intake Total 1775 Output Total 650 Balance 1125 Result Diagrams: 02/19/17 05:01 02/19/17 05:01 Additional Labs: Accuchecks 02/19/17 02/19/17 02/18/17 11:23 05:45 20:51 POC Glucose 248 H 239 H 257 H 02/18/17 15:35 POC Glucose 267 H Phys Exam - Physical Examination HEENT: PERRLA, moist MMs Neck: no JVD, supple Respiratory: no wheezing, no rales Cardiovascular: RRR, no significant murmur Gastrointestinal: soft, non-tender, positive bowel sounds Musculoskeletal: no edema, pulses present Neurological: non-focal, moves all 4 limbs Psychiatric: A&O x 3 Dx/Plan (1) Bacteremia due to Klebsiella pneumoniae Code(s): R78.81 - BACTEREMIA Status: Acute Comment: unclear source (2) ulcerative colitis flare Status: Acute (3) Sepsis Code(s): A41.9 - SEPSIS, UNSPECIFIED ORGANISM Status: Acute Comment: sec to klebsiella (4) DM type 2 (diabetes mellitus, type 2) Status: Chronic Qualifiers: Diabetes mellitus complication status: with unspecified complications Diabetes mellitus intermediate insulin use: without long term care pharmacist use Qualified Code( s): E11.8 - Type 2 diabetes mellitus with unspecified complications (5) MAY (acute kidney injury) Code(s): N17.9 - ACUTE KIDNEY FAILURE, UNSPECIFIED Status: Resolved Comment : resolving (6) Dyslipidemia Code(s): E78.5 - HYPERLIPIDEMIA, UNSPECIFIED Status: Chronic (7) Metabolic acidosis Code(s): E87.2 - ACIDOSIS Status: Acute (8) UTI (urinary tract infection) Status: Acute Qualifiers: Urinary tract infection type: acute cystitis Hematuria presence: without hematuria Qualified Code(s): N30.00 - Acute cystitis without hematuria - Plan is on oral levaquin -: dc metformin, is on glipizide (had very low sugar with glyburide yrs ago) -: levemir at HS -: dc iv fluids -: is on iv steroids, elevated wbc due to steroids * . Review of Systems - Medications/Allergies Allergies/Adverse Reactions: Allergies Allergy/AdvReac Type Severity Reaction Status Date / Time No Known Allergies Allergy Verified 02/14/17 21:20 Medications: Current Medications Acetaminophen (Tylenol) 650 mg PO Q4H PRN PRN Reason: Headache/Fever or Pain Last Admin: 02/15/17 05:41 Dose: 650 mg Dextrose/Water (Dextrose 50%) 25 gm SLOW IVP PRN PRN PRN Reason: Hypoglycemia Enoxaparin Sodium (Lovenox) 30 mg SC 0900 [facility] Last Admin: 02/19/17 08:11 Dose: 30 mg Glipizide (Glucotrol) 5 mg PO BID-[facility] Glucagon (Glucagon) 1 mg IM PRN PRN PRN Reason: Hypoglycemia Dextrose/Water (D5w) 1,000 mls @ 0 mls/hr IV .Q0M PRN; As Directed PRN Reason: Hypoglycemia Insulin Detemir 5 units/ (Miscellaneous Medication) 0.05 mls @ 0 mls/hr SC BID [facility] Last Admin: 02/19/17 10:39 Dose: 0.05 mls Insulin Human Lispro (Humalog) 0 units SC .MODERATE SLIDING SC PRN PRN Reason: Moderate Correctional Scale Last Admin: 02/19/17 06:15 Dose: 4 unit Insulin Human Lispro (Humalog) 0 units SC .BEDTIME SLIDING SC PRN PRN Reason: Bedtime Correctional Scale Last Admin: 02/18/17 21:07 Dose: 3 unit Levofloxacin (Levaquin) 500 mg PO 0600 [facility] Methylprednisolone Sodium Succinate (Solu-Medrol) 20 mg IVP Q8HR [facility] Last Admin: 02/19/17 06:18 Dose: 20 mg Saccharomyces Boulardii (Florastor) 250 mg PO DAILY [facility] Last Admin: 02/19/17 08:11 Dose: 250 mg Simvastatin (Zocor) 10 mg PO HS [facility] Last Admin: 02/18/17 21:02 Dose: 10 mg Sodium Chloride (Flush - Normal Saline) 10 ml IVF Q12HR [facility] Last Admin: 02/19/17 10:32 Dose: 10 ml Sodium Chloride (Flush - Normal Saline) 10 ml IVF PRN PRN PRN Reason: Saline Flush
[2017-02-19] MEDS: glipiZIDE 5 MG TAB PO SCH (15:23)
--- NOTE | 2017-02-19 19:30 | PRG ---
DATE: 02/19/2017 Mr. Basurto notes that he is still having about 10 bowel movements a day, but he is starting to see a little bit of form. He did not see any bleeding overnight. He was actually able to sleep without h aving to get up. MEDICATIONS: He is on Tylenol, D5W p.r.n., Lovenox, Glipizide, insulin sliding scale as well as ins ulin detemir 5 units b.i.d., Levaquin 500 mg p.o. daily, Solu-Medrol 20 IV q. 8 hours, Florastor, si mvastatin, normal saline at 75 mL an hour. PHYSICAL EXAMINATION: GENERAL: He is dressed. He is up walking around the room. VITAL SIGNS: Temperature is 98, pulse 73, blood pressure 163/87. LUNGS: Clear. CARDIOVASCULAR: Regular rate and rhythm. ABDOMEN: Nontender. He has a little bit of a hernia in the lower abdomen, incisional, non-incarcer ated. EXTREMITIES: Reveal no edema. LABORATORY AND X-RAY FINDINGS: White count 16, hemoglobin 13, platelet count 337. INR 1.1. Sodium 113, potassium 4.6, BUN and creatinine are 24 and 1.06, glucose 272. Urine culture from the egative. ASSESSMENT: Klebsiella bacteremia on fluoroquinolone which it is sensitive to. Colitis, Clostridiu m difficile toxin negative and history of chronic ulcerative colitis which began after a diverticula r resection. Endoscopy this spring showed active inflammation and poorly controlled for several mon ths. Presently, he is on IV steroids with a plan to see if that will calm things down and if so the n get him back on 5-ASA and taper oral steroids as an outpatient. Alternatively, if he does not imp rove, he will likely need an endoscopy to assess the state of his disease and consider moving on to immunomodulator or biologic therapy. The patient is interested in this. Dr. Gore will return donny rrow to resume his care and make those decisions.
[2017-02-19] MEDS: Simvastatin 5 MG TAB PO SCH (21:58)
[2017-02-19] MEDS: Insulin Detemir 100 UNITS/ML 5 UNITS in Pre-Filled Syringe 1 EACH SC SCH (22:00)
[2017-02-20] MEDS: HumaLOG 300 UNITS/3 ML VIAL SC PRN ×4 (05:36→21:30)
[2017-02-20 05:52] LABS: #Eosinphils 0.1 thou/uL (0.0-0.7); #Lymphocytes 2.3 thou/uL (1.20-3.40); #Monocytes 0.9 thou/uL (0.11-0.59); #Neutrophils 14.6 thou/uL (1.40-6.50); %Basophils 0.1 % (0.0-1.0); %Eosinophils 0.8 % (0.0-10.0); %Lymphocytes 12.8 % (21.0-51.0); %Monocytes 4.8 % (0.0-10.0); Hematocrit 40.4 % (42.0-52.0); Mean Platelet Volume 8.1 fL (7.4-10.4); Red Blood Cell (RBC) Count 4.27 mill/uL (4.70-6.10); White Blood Cell (WBC) Count 17.9 thou/uL (4.8-10.8)
[2017-02-20 06:23] LABS: Anion Gap 10 mmol/L (10-20); BUN (Urea Nitrogen) 23 mg/dL (8.4-25.7); Calc. Creatinine Clearance 90 mL/min (70-130); Calcium 8.9 mg/dL (7.8-10.44); Carbon Dioxide 23 mmol/L (23-31); Chloride 107 mmol/L (98-107); Estimated GFR-MDRD 68; Phosphorus 3.8 mg/dL (2.3-4.7)
[2017-02-20] MEDS: Enoxaparin Sodium 30 MG/0.3 ML SYRINGE SC SCH (08:10)
[2017-02-20] MEDS: Saccharomyces boulardii 250 MG CAP PO SCH (08:10)
[2017-02-20] MEDS: glipiZIDE 5 MG TAB PO SCH ×2 (08:10→17:21)
--- NOTE | 2017-02-20 12:42 | PDOC.PN ---
- Subjective Encounter Start Date: 02/20/17 Encounter Start Time: 10:25 -: old records requested/rev Patient seen and examined. No overnight events, last night 3 diarrhoea and since this morning has 3 diarrhoea - Objective Resuscitation Status: Resuscitation Status FULL:Full Resuscitation MAR Reviewed: Yes Vital Signs & Weight: Vital Signs (12 hours) Temp Pulse Resp BP Pulse Ox 02/20/17 08:00 97.6 F 77 18 159/81 H 98 Weight Weight 231 lb 6 oz I&O: 02/19/17 02/20/17 02/21/17 06:59 06:59 06:59 Intake Total 1775 1252 Output Total 650 Balance 1125 1252 Result Diagrams: 02/20/17 05:35 02/20/17 05:35 Additional Labs: Accuchecks 02/20/17 02/20/17 02/19/17 11:12 05:34 20:50 POC Glucose 253 H 193 H 218 H 02/19/17 16:55 POC Glucose 260 H Phys Exam - Physical Examination Constitutional: NAD HEENT: PERRLA, moist MMs, sclera anicteric Neck: no JVD, supple Respiratory: no wheezing, no rales, no rhonchi Cardiovascular: RRR, no significant murmur, no rub Gastrointestinal: soft, non-tender, no distention, positive bowel sounds Musculoskeletal: no edema, pulses present Neurological: non-focal, normal sensation, moves all 4 limbs Psychiatric: normal affect, A&O x 3 Skin: no rash, normal turgor Dx/Plan (1) Bacteremia due to Klebsiella pneumoniae Code(s): R78.81 - BACTEREMIA Status: Acute Comment: unclear source (2) Exacerbation of ulcerative colitis Code(s): K51.90 - ULCERATIVE COLITIS, UNSPECIFIED, WITHOUT COMPLICATIONS Status: Acute (3) Metabolic acidosis Code(s): E87.2 - ACIDOSIS Status: Acute (4) Sepsis Code(s): A41.9 - SEPSIS, UNSPECIFIED ORGANISM Status: Acute Comment: sec to klebsiella (5) UTI (urinary tract infection) Status: Acute Qualifiers: Urinary tract infection type: acute cystitis Hematuria presence: without hematuria Qualified Code(s): N30.00 - Acute cystitis without hematuria (6) DM type 2 (diabetes mellitus, type 2) Status: Chronic Qualifiers: Diabetes mellitus complication status: with unspecified complications Diabetes mellitus shelter insulin use: without shelter use Qualified Code( s): E11.8 - Type 2 diabetes mellitus with unspecified complications (7) Dyslipidemia Code(s): E78.5 - HYPERLIPIDEMIA, UNSPECIFIED Status: Chronic (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 * will repeat blood culture tomorrow and repeat labs * slowly improving Review of Systems - Review of Systems Constitutional: negative: Fever, Chills, Sweats, Weakness, Malaise, Other ENT: negative: Ear Pain, Ear Discharge, Nose Pain, Nose Discharge, Nose Congestion, Mouth Pain, Mouth Swelling, Throat Pain, Throat Swelling, Other Respiratory: negative: Cough, Dry, Shortness of Breath, Hemoptysis, SOB with Excertion, Pleuritic Pain, Sputum, Wheezing Cardiovascular: negative: Chest Pain, Palpitations, Orthopnea, Paroxysmal Noc. Dyspnea, Edema, Light Headedness, Other Gastrointestinal: Diarrhea. negative: Nausea, Vomiting, Abdominal Pain, Constipation, Melena, Hematochezia, Other Genitourinary: negative: Dysuria, Frequency, Incontinence, Hematuria, Retention , Other Musculoskeletal: negative: Neck Pain, Shoulder Pain, Arm Pain, Back Pain, Hand Pain, Leg Pain, Foot Pain, Other Skin: negative: Rash, Lesions, August, Bruising, Other - Medications/Allergies Allergies/Adverse Reactions: Allergies Allergy/AdvReac Type Severity Reaction Status Date / Time No Known Allergies Allergy Verified 02/14/17 21:20 Medications: Current Medications Acetaminophen (Tylenol) 650 mg PO Q4H PRN PRN Reason: Headache/Fever or Pain Last Admin: 02/15/17 05:41 Dose: 650 mg Dextrose/Water (Dextrose 50%) 25 gm SLOW IVP PRN PRN PRN Reason: Hypoglycemia Enoxaparin Sodium (Lovenox) 30 mg SC 0900 [facility] Last Admin: 02/20/17 08:10 Dose: 30 mg Glipizide (Glucotrol) 5 mg PO BID-AC ON [facility] OF [facility] Last Admin: 02/20/17 08:10 Dose: 5 mg Glucagon (Glucagon) 1 mg IM PRN PRN PRN Reason: Hypoglycemia Dextrose/Water (D5w) 1,000 mls @ 0 mls/hr IV .Q0M PRN; As Directed PRN Reason: Hypoglycemia Insulin Detemir 5 units/ (Miscellaneous Medication) 0.05 mls @ 0 mls/hr SC [facility] Last Admin: 02/19/17 22:00 Dose: 0.05 mls Insulin Human Lispro (Humalog) 0 units SC .MODERATE SLIDING SC PRN PRN Reason: Moderate Correctional Scale Last Admin: 02/20/17 12:08 Dose: 6 unit Insulin Human Lispro (Humalog) 0 units SC .BEDTIME SLIDING SC PRN PRN Reason: Bedtime Correctional Scale Last Admin: 02/19/17 21:58 Dose: 2 unit Levofloxacin (Levaquin) 500 mg PO 0600 [facility] Last Admin: 02/20/17 05:35 Dose: 500 mg Methylprednisolone Sodium Succinate (Solu-Medrol) 20 mg IVP Q8HR ON [facility] OF [facility] Last Admin: 02/20/17 05:35 Dose: 20 mg Saccharomyces Boulardii (Florastor) 250 mg PO DAILY [facility] Last Admin: 02/20/17 08:10 Dose: 250 mg Simvastatin (Zocor) 10 mg PO [facility] Last Admin: 02/19/17 21:58 Dose: 10 mg Sodium Chloride (Flush - Normal Saline) 10 ml IVF Q12HR ON [facility] OF [facility] Last Admin: 02/20/17 08:10 Dose: 10 ml Sodium Chloride (Flush - Normal Saline) 10 ml IVF PRN PRN PRN Reason: Saline Flush
--- NOTE | 2017-02-20 19:33 | PRG ---
DATE OF SERVICE: 02/20/2017 SUBJECTIVE: Mr. Basurto is doing better. He has had 2 days and 2 nights now without any rectal bleed ing. He has less pain with bowel movements around the rectum. He has been passing mostly formed sm all stools several times per day. The frequency is down. He had 8 stools over the last 24 hours. PHYSICAL EXAMINATION: VITAL SIGNS: Temperature 98.0, pulse 68, blood pressure 120/66. GENERAL: The patient is awake and alert, in no acute distress. LUNGS: Clear to auscultation bilaterally. HEART: Regular rate and rhythm. ABDOMEN: Soft, nontender, nondistended. Bowel sounds are present. EXTREMITIES: No lower extremity edema. LABORATORY DATA: White blood cell count 17.9, hemoglobin 13.9, platelets 331, creatinine 1.07. IMPRESSION AND PLAN: Exacerbation of chronic ulcerative colitis. He is finally showing significant symptomatic improvement with IV steroids. I would continue the IV steroids through tomorrow and if he continues to do well tomorrow, then change him over to oral prednisone on Monday. I would li caprice to watch him for a day on the oral steroids before discharge and if he continues to do well, he c ould potentially discharge home . On the other hand, if his symptoms flare back up again, dave prieto I would plan an endoscopy to evaluate for active inflammation in the rectum. RECOMMENDATIONS: Continue IV steroids through tomorrow and if he continues to do well, we will tolentino ge to oral prednisone on Monday. If his symptoms worsen again, then we will plan endoscopy.
[2017-02-20] MEDS: Simvastatin 5 MG TAB PO SCH (21:26)
[2017-02-20] MEDS: Insulin Detemir 100 UNITS/ML 5 UNITS in Pre-Filled Syringe 1 EACH SC SCH (21:29)
[2017-02-21 04:57] LABS: Anion Gap 13 mmol/L (10-20); BUN (Urea Nitrogen) 25 mg/dL (8.4-25.7); Calc. Creatinine Clearance 84 mL/min (70-130); Calcium 9.1 mg/dL (7.8-10.44); Carbon Dioxide 20 mmol/L (23-31); Chloride 106 mmol/L (98-107); Estimated GFR-MDRD 63
[2017-02-21 05:07] LABS: Band 3 % (5-11); Hematocrit 41.9 % (42.0-52.0); Myelocyte 3 % (0-0); Neutrophil 79 % (42-75); White Blood Cell (WBC) Count 22.6 thou/uL (4.8-10.8)
[2017-02-21] MEDS: HumaLOG 300 UNITS/3 ML VIAL SC PRN ×3 (05:50→17:03)
[2017-02-21] MEDS ORDERED: Temazepam 15 MG CAP PO PRN (07:14)
[2017-02-21] MEDS ORDERED: Ondansetron ODT 4 MG TAB PO PRN (07:14)
[2017-02-21] MEDS ORDERED: Ondansetron HCl/PF 4 MG/2 ML Vial IVP PRN (07:14)
[2017-02-21] MEDS ORDERED: hydrALAZINE 20 MG/ML VIAL SLOW IVP PRN (07:14)
[2017-02-21] MEDS ORDERED: Mag-Al 1200 mg/1200 mg/30 ML UDCUP PO PRN (07:14)
[2017-02-21] MEDS ORDERED: Milk Of Magnesia 30 ML UDCUP PO PRN (07:14)
[2017-02-21] MEDS ORDERED: Diabetic Tussin 200 MG/10 ML UDCUP PO PRN (07:14)
[2017-02-21] MEDS ORDERED: Artificial Tears 18 DROP/0.9 ML EA EYE PRN (07:14)
[2017-02-21] MEDS ORDERED: Eucerin (Mineral Oil/Petrolatum,White) 30 gm Jar TOP PRN (07:14)
[2017-02-21] MEDS ORDERED: Loratadine 10 MG TAB PO PRN (07:14)
[2017-02-21] MEDS ORDERED: Sodium Chloride 0.65% Nasal 44 ML BOT EA NARE PRN (07:14)
[2017-02-21] MEDS ORDERED: HYDROcodone/Acetaminophen 5/325 mg Tablet PO PRN (07:14)
[2017-02-21] MEDS ORDERED: Loperamide HCl 2 MG CAP PO PRN (07:14)
[2017-02-21] MEDS: Enoxaparin Sodium 30 MG/0.3 ML SYRINGE SC SCH (09:02)
[2017-02-21] MEDS: Insulin Detemir 100 UNITS/ML 5 UNITS in Pre-Filled Syringe 1 EACH SC SCH ×2 (09:02→20:49)
[2017-02-21] MEDS: glipiZIDE 5 MG TAB PO SCH ×2 (09:02→17:03)
[2017-02-21] MEDS: Saccharomyces boulardii 250 MG CAP PO SCH (09:03)
[2017-02-21] MEDS: Famotidine 20 MG TAB PO SCH ×2 (09:07→20:48)
--- NOTE | 2017-02-21 13:18 | PDOC.PN ---
- Subjective Encounter Start Date: 02/21/17 Encounter Start Time: 10:00 pt was upset with blood drawn last night, he reported to me that his diarrhoea is improving, no fever - Objective Resuscitation Status: Resuscitation Status FULL:Full Resuscitation MAR Reviewed: Yes Vital Signs & Weight: Vital Signs (12 hours) Temp Pulse Resp BP Pulse Ox 02/21/17 08:49 97.6 F 67 20 139/74 96 02/21/17 08:00 97.6 F 67 20 Weight Weight 231 lb 6 oz I&O: 02/20/17 02/21/17 02/22/17 06:59 06:59 06:59 Intake Total 1252 1462 Balance 1252 1462 Result Diagrams: 02/21/17 04:03 02/21/17 04:03 Additional Labs: Accuchecks 02/21/17 02/21/17 02/20/17 11:45 03:31 19:13 POC Glucose 203 H 243 H 271 H 02/20/17 16:33 POC Glucose 176 H Phys Exam - Physical Examination Constitutional: NAD HEENT: PERRLA, moist MMs, sclera anicteric Neck: no JVD, supple Respiratory: no wheezing, no rales, no rhonchi Cardiovascular: RRR, no significant murmur, no rub Gastrointestinal: soft, non-tender, no distention, positive bowel sounds Musculoskeletal: no edema, pulses present Neurological: non-focal, normal sensation, moves all 4 limbs Psychiatric: normal affect, A&O x 3 Skin: no rash, normal turgor Dx/Plan (1) Bacteremia due to Klebsiella pneumoniae Code(s): R78.81 - BACTEREMIA Status: Acute Comment: unclear source (2) Exacerbation of ulcerative colitis Code(s): K51.90 - ULCERATIVE COLITIS, UNSPECIFIED, WITHOUT COMPLICATIONS Status: Acute (3) Metabolic acidosis Code(s): E87.2 - ACIDOSIS Status: Acute (4) Sepsis Code(s): A41.9 - SEPSIS, UNSPECIFIED ORGANISM Status: Acute Comment: sec to klebsiella (5) UTI (urinary tract infection) Status: Acute Qualifiers: Urinary tract infection type: acute cystitis Hematuria presence: without hematuria Qualified Code(s): N30.00 - Acute cystitis without hematuria (6) DM type 2 (diabetes mellitus, type 2) Status: Chronic Qualifiers: Diabetes mellitus complication status: with unspecified complications Diabetes mellitus intermediate designer insulin use: without group home use Qualified Code( s): E11.8 - Type 2 diabetes mellitus with unspecified complications (7) Dyslipidemia Code(s): E78.5 - HYPERLIPIDEMIA, UNSPECIFIED Status: Chronic (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 Review of Systems - Review of Systems ENT: negative: Ear Pain, Ear Discharge, Nose Pain, Nose Discharge, Nose Congestion, Mouth Pain, Mouth Swelling, Throat Pain, Throat Swelling, Other Respiratory: negative: Cough, Dry, Shortness of Breath, Hemoptysis, SOB with Excertion, Pleuritic Pain, Sputum, Wheezing Cardiovascular: negative: Chest Pain, Palpitations, Orthopnea, Paroxysmal Noc. Dyspnea, Edema, Light Headedness, Other Gastrointestinal: negative: Nausea, Vomiting, Abdominal Pain, Diarrhea, Constipation, Melena, Hematochezia, Other Genitourinary: negative: Dysuria, Frequency, Incontinence, Hematuria, Retention , Other Musculoskeletal: negative: Neck Pain, Shoulder Pain, Arm Pain, Back Pain, Hand Pain, Leg Pain, Foot Pain, Other Skin: negative: Rash, Lesions, August, Bruising, Other - Medications/Allergies Allergies/Adverse Reactions: Allergies Allergy/AdvReac Type Severity Reaction Status Date / Time No Known Allergies Allergy Verified 02/14/17 21:20 Medications: Current Medications Acetaminophen (Tylenol) 650 mg PO Q4H PRN PRN Reason: Headache/Fever or Pain Last Admin: 02/15/17 05:41 Dose: 650 mg Hydrocodone Bitart/Acetaminophen ([place] 5/325) 1 tab PO Q4H PRN PRN Reason: Moderate Pain (4-6) Al Hydroxide/Mg Hydroxide (Maalox) 15 ml PO Q4H PRN PRN Reason: Heartburn or Indigestion Artificial Tears (Tears Naturale) 0 drop EA EYE PRN PRN PRN Reason: Dry Eyes Dextrose/Water (Dextrose 50%) 25 gm SLOW IVP PRN PRN PRN Reason: Hypoglycemia Enoxaparin Sodium (Lovenox) 30 mg SC 0900 [facility] Last Admin: 02/21/17 09:02 Dose: 30 mg Famotidine (Pepcid) 20 mg PO BID [facility] Last Admin: 02/21/17 09:07 Dose: 20 mg Glipizide (Glucotrol) 5 mg PO BID-[facility] Last Admin: 02/21/17 09:02 Dose: 5 mg Glucagon (Glucagon) 1 mg IM PRN PRN PRN Reason: Hypoglycemia Guaifenesin (Robitussin Sf) 200 mg PO Q4H PRN PRN Reason: Cough Hydralazine HCl (Apresoline) 10 mg SLOW IVP Q4H PRN PRN Reason: Systolic BP > 180 Dextrose/Water (D5w) 1,000 mls @ 0 mls/hr IV .Q0M PRN; As Directed PRN Reason: Hypoglycemia Insulin Detemir 5 units/ (Miscellaneous Medication) 0.05 mls @ 0 mls/hr SC [facility] Last Admin: 02/20/17 21:29 Dose: 0.05 mls Insulin Detemir 5 units/ (Miscellaneous Medication) 0.05 mls @ 0 mls/hr SC QAM [facility] Last Admin: 02/21/17 09:02 Dose: 0.05 mls Insulin Human Lispro (Humalog) 0 units SC .MODERATE SLIDING SC PRN PRN Reason: Moderate Correctional Scale Last Admin: 02/21/17 11:46 Dose: 4 unit Insulin Human Lispro (Humalog) 0 units SC .BEDTIME SLIDING SC PRN PRN Reason: Bedtime Correctional Scale Last Admin: 02/20/17 21:30 Dose: 3 unit Levofloxacin (Levaquin) 500 mg PO 0600 [facility] Last Admin: 02/21/17 05:40 Dose: 500 mg Loperamide HCl (Imodium) 2 mg PO PRN PRN PRN Reason: Diarrhea/Loose Stools Loratadine (Claritin) 10 mg PO DAILYPRN PRN PRN Reason: Sinus Symptoms Magnesium Hydroxide (Milk Of Magnesium) 30 ml PO DAILYPRN PRN PRN Reason: Constipation Methylprednisolone Sodium Succinate (Solu-Medrol) 20 mg IVP Q8HR [facility] Last Admin: 02/21/17 05:40 Dose: 20 mg Mineral Oil/White Petrolatum (Eucerin Cream) 0 gm TOP BIDPRN PRN PRN Reason: Dry Skin Ondansetron HCl (Zofran Odt) 4 mg PO Q6H PRN PRN Reason: Nausea/Vomiting Ondansetron HCl (Zofran) 4 mg IVP Q6H PRN PRN Reason: Nausea/Vomiting Saccharomyces Boulardii (Florastor) 250 mg PO DAILY [facility] Last Admin: 02/21/17 09:03 Dose: 250 mg Simvastatin (Zocor) 10 mg PO HS [facility] Last Admin: 02/20/17 21:26 Dose: 10 mg Sodium Chloride (Flush - Normal Saline) 10 ml IVF Q12HR [facility] Last Admin: 02/21/17 09:03 Dose: 10 ml Sodium Chloride (Flush - Normal Saline) 10 ml IVF PRN PRN PRN Reason: Saline Flush Last Admin: 02/20/17 14:03 Dose: 10 ml Sodium Chloride ([place] Nasal [place] 0.65%) 0 ml EA NARE QIDPRN PRN PRN Reason: Nasal Congestion Temazepam (Restoril) 15 mg PO HSPRN PRN PRN Reason: Insomnia
--- NOTE | 2017-02-21 18:56 | PRG ---
DATE OF SERVICE: 02/21/2017 SUBJECTIVE: Mr. Basurto had another episode of blood with stool today and he had [address] night. He feels worse today in general. He became angry with the solar lab technician early this morn ing regarding a lab draw. PHYSICAL EXAMINATION: VITAL SIGNS: Temperature 97.6, pulse 67, blood pressure 139/74. GENERAL: He is in no acute distress. He is awake and alert. LUNGS: Clear to auscultation bilaterally. HEART: Regular rate and rhythm. ABDOMEN: Soft, nontender, nondistended. Bowel sounds are present. EXTREMITIES: Trace lower extremity edema. IMPRESSION: 1. Exacerbation of chronic ulcerative colitis. He again started having blood in the stool and freq uent stools. I will plan colonoscopy tomorrow to assess response to steroids. 2. Diabetes mellitus, which his blood sugars have worsened on the steroids. 3. Leukocytosis. He is on antibiotics for a positive blood culture for Klebsiella. His white bloo d cell count improved, but then worsened again which I suspect that the second peak is from the ster oids. He did have a Clostridium difficile antigen, which was negative today. RECOMMENDATIONS: 1. Colonoscopy tomorrow. 2. Transition to oral steroids after the colonoscopy. Watch him on oral steroids on with anticipation of possible discharge home on Monday. 3. It might be possible to induce remission with the steroids and then transition back to 5-ASA com pounds for maintenance of remission. More likely, he will require an additional immune suppression medication to maintain remission. Depending on the severity of the inflammation in the rectum now, he may need to start with anti-TNF or immunomodulator sooner than later.
[2017-02-21] MEDS: Simvastatin 5 MG TAB PO SCH (20:48)
[2017-02-22 04:35] LABS: Anion Gap 10 mmol/L (10-20); BUN (Urea Nitrogen) 27 mg/dL (8.4-25.7); Calc. Creatinine Clearance 86 mL/min (70-130); Calcium 8.9 mg/dL (7.8-10.44); Carbon Dioxide 24 mmol/L (23-31); Chloride 104 mmol/L (98-107); Estimated GFR-MDRD 64; Magnesium 2.2 mg/dL (1.6-2.6)
[2017-02-22 04:37] LABS: Band 3 % (5-11); Hematocrit 43.7 % (42.0-52.0); Neutrophil 77 % (42-75); Red Blood Cell (RBC) Count 4.64 mill/uL (4.70-6.10); White Blood Cell (WBC) Count 20.2 thou/uL (4.8-10.8)
[2017-02-22] MEDS ORDERED: GoLYTELY 4,000 ml Bottle PO SCH (07:00)
[2017-02-22] MEDS: Insulin Detemir 100 UNITS/ML 5 UNITS in Pre-Filled Syringe 1 EACH SC SCH ×3 (09:33→21:59)
[2017-02-22] MEDS: glipiZIDE 5 MG TAB PO SCH ×2 (09:33→17:19)
[2017-02-22] MEDS: Enoxaparin Sodium 30 MG/0.3 ML SYRINGE SC SCH ×2 (09:34→13:40)
[2017-02-22] MEDS: Saccharomyces boulardii 250 MG CAP PO SCH ×2 (09:42→13:41)
[2017-02-22] MEDS: Famotidine 20 MG TAB PO SCH ×3 (09:42→21:58)
--- NOTE | 2017-02-22 10:51 | PDOC.PN ---
- Subjective Encounter Start Date: 02/22/17 Encounter Start Time: 10:15 today has hematochezia, getting preparation for colonoscopy - Objective Resuscitation Status: Resuscitation Status FULL:Full Resuscitation MAR Reviewed: Yes Vital Signs & Weight: Vital Signs (12 hours) Temp Pulse Resp BP Pulse Ox 02/22/17 08:32 98.0 F 55 L 20 130/81 98 Weight Weight 231 lb 6 oz I&O: 02/21/17 02/22/17 02/23/17 06:59 06:59 06:59 Intake Total 1462 1200 Balance 1462 1200 Result Diagrams: 02/22/17 04:01 02/22/17 04:01 Additional Labs: Accuchecks 02/22/17 02/21/17 02/21/17 06:29 21:41 16:57 POC Glucose 192 H 257 H 193 H 02/21/17 11:45 POC Glucose 203 H Phys Exam - Physical Examination Constitutional: NAD HEENT: PERRLA, moist MMs, sclera anicteric Neck: no JVD, supple Respiratory: no wheezing, no rales, no rhonchi Cardiovascular: RRR, no significant murmur, no rub Gastrointestinal: soft, non-tender, no distention, positive bowel sounds Musculoskeletal: no edema, pulses present Neurological: non-focal, normal sensation, moves all 4 limbs Psychiatric: normal affect, A&O x 3 Skin: no rash, normal turgor Dx/Plan (1) Bacteremia due to Klebsiella pneumoniae Code(s): R78.81 - BACTEREMIA Status: Acute Comment: unclear source (2) Exacerbation of ulcerative colitis Code(s): K51.90 - ULCERATIVE COLITIS, UNSPECIFIED, WITHOUT COMPLICATIONS Status: Acute (3) Metabolic acidosis Code(s): E87.2 - ACIDOSIS Status: Acute (4) Sepsis Code(s): A41.9 - SEPSIS, UNSPECIFIED ORGANISM Status: Acute Comment: sec to klebsiella (5) UTI (urinary tract infection) Status: Acute Qualifiers: Urinary tract infection type: acute cystitis Hematuria presence: without hematuria Qualified Code(s): N30.00 - Acute cystitis without hematuria (6) DM type 2 (diabetes mellitus, type 2) Status: Chronic Qualifiers: Diabetes mellitus complication status: with unspecified complications Diabetes mellitus local company intermodal truck driver insulin use: without local company intermodal truck driver use Qualified Code( s): E11.8 - Type 2 diabetes mellitus with unspecified complications (7) Dyslipidemia Code(s): E78.5 - HYPERLIPIDEMIA, UNSPECIFIED Status: Chronic (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 Review of Systems - Review of Systems ENT: negative: Ear Pain, Ear Discharge, Nose Pain, Nose Discharge, Nose Congestion, Mouth Pain, Mouth Swelling, Throat Pain, Throat Swelling, Other Respiratory: negative: Cough, Dry, Shortness of Breath, Hemoptysis, SOB with Excertion, Pleuritic Pain, Sputum, Wheezing Cardiovascular: negative: Chest Pain, Palpitations, Orthopnea, Paroxysmal Noc. Dyspnea, Edema, Light Headedness, Other Gastrointestinal: Diarrhea, Hematochezia. negative: Nausea, Vomiting, Abdominal Pain, Constipation, Melena, Other Genitourinary: negative: Dysuria, Frequency, Incontinence, Hematuria, Retention , Other Musculoskeletal: negative: Neck Pain, Shoulder Pain, Arm Pain, Back Pain, Hand Pain, Leg Pain, Foot Pain, Other Skin: negative: Rash, Lesions, August, Bruising, Other - Medications/Allergies Allergies/Adverse Reactions: Allergies Allergy/AdvReac Type Severity Reaction Status Date / Time No Known Allergies Allergy Verified 02/14/17 21:20 Medications: Current Medications Acetaminophen (Tylenol) 650 mg PO Q4H PRN PRN Reason: Headache/Fever or Pain Last Admin: 02/15/17 05:41 Dose: 650 mg Hydrocodone Bitart/Acetaminophen ([place] 5/325) 1 tab PO Q4H PRN PRN Reason: Moderate Pain (4-6) Al Hydroxide/Mg Hydroxide (Maalox) 15 ml PO Q4H PRN PRN Reason: Heartburn or Indigestion Artificial Tears (Tears Naturale) 0 drop EA EYE PRN PRN PRN Reason: Dry Eyes Dextrose/Water (Dextrose 50%) 25 gm SLOW IVP PRN PRN PRN Reason: Hypoglycemia Enoxaparin Sodium (Lovenox) 30 mg SC 0900 [facility] Last Admin: 02/22/17 09:34 Dose: Not Given Famotidine (Pepcid) 20 mg PO BID [facility] Last Admin: 02/22/17 09:42 Dose: Not Given Glipizide (Glucotrol) 5 mg PO BID-AC [facility] Last Admin: 02/22/17 09:33 Dose: Not Given Glucagon (Glucagon) 1 mg IM PRN PRN PRN Reason: Hypoglycemia Guaifenesin (Robitussin Sf) 200 mg PO Q4H PRN PRN Reason: Cough Hydralazine HCl (Apresoline) 10 mg SLOW IVP Q4H PRN PRN Reason: Systolic BP > 180 Dextrose/Water (D5w) 1,000 mls @ 0 mls/hr IV .Q0M PRN; As Directed PRN Reason: Hypoglycemia Insulin Detemir 5 units/ (Miscellaneous Medication) 0.05 mls @ 0 mls/hr SC HS [facility] Last Admin: 02/21/17 20:49 Dose: Not Given Insulin Detemir 5 units/ (Miscellaneous Medication) 0.05 mls @ 0 mls/hr [facility] Last Admin: 02/22/17 09:33 Dose: Not Given Insulin Human Lispro (Humalog) 0 units SC .MODERATE SLIDING SC PRN PRN Reason: Moderate Correctional Scale Last Admin: 02/21/17 17:03 Dose: 2 unit Insulin Human Lispro (Humalog) 0 units SC .BEDTIME SLIDING SC PRN PRN Reason: Bedtime Correctional Scale Last Admin: 02/20/17 21:30 Dose: 3 unit Levofloxacin (Levaquin) 500 mg PO 0600 [facility] Last Admin: 02/22/17 05:49 Dose: 500 mg Loperamide HCl (Imodium) 2 mg PO PRN PRN PRN Reason: Diarrhea/Loose Stools Loratadine (Claritin) 10 mg PO DAILYPRN PRN PRN Reason: Sinus Symptoms Magnesium Hydroxide (Milk Of Magnesium) 30 ml PO DAILYPRN PRN PRN Reason: Constipation Methylprednisolone Sodium Succinate (Solu-Medrol) 20 mg IVP Q8HR [facility] Last Admin: 02/22/17 05:46 Dose: 20 mg Mineral Oil/White Petrolatum (Eucerin Cream) 0 gm TOP BIDPRN PRN PRN Reason: Dry Skin Ondansetron HCl (Zofran Odt) 4 mg PO Q6H PRN PRN Reason: Nausea/Vomiting Ondansetron HCl (Zofran) 4 mg IVP Q6H PRN PRN Reason: Nausea/Vomiting Polyethylene Glycol/Electrolytes (Golytely) 2,000 ml PO 0700 [facility] Stop: 02/22/17 23:59 Last Admin: 02/22/17 07:00 Dose: 2,000 ml Saccharomyces Boulardii (Florastor) 250 mg PO DAILY [facility] Last Admin: 02/22/17 09:42 Dose: Not Given Simvastatin (Zocor) 10 mg PO HS [facility] Last Admin: 02/21/17 20:48 Dose: 10 mg Sodium Chloride (Flush - Normal Saline) 10 ml IVF Q12HR [facility] Last Admin: 02/22/17 09:42 Dose: 10 ml Sodium Chloride (Flush - Normal Saline) 10 ml IVF PRN PRN PRN Reason: Saline Flush Last Admin: 02/21/17 13:29 Dose: 10 ml Sodium Chloride ([place] Nasal [place] 0.65%) 0 ml EA NARE QIDPRN PRN PRN Reason: Nasal Congestion Temazepam (Restoril) 15 mg PO HSPRN PRN PRN Reason: Insomnia
[2017-02-22] MEDS ORDERED: Lidocaine 1% PF 5 ML VIAL ONE (12:21)
[2017-02-22] MEDS ORDERED: Propofol 200 MG/20 ML VIAL ONE (12:21)
--- NOTE | 2017-02-22 14:05 | OP ---
DATE OF PROCEDURE: 02/22/2017 SURGEON: Thomas Gore M.D. PROCEDURE: Colonoscopy with biopsy. PREOPERATIVE DIAGNOSES: Ulcerative colitis and ongoing diarrhea and hematochezia. OPERATIVE NOTE: Informed consent was obtained from the patient. He was sedated with total intraven ous anesthesia. The rectal exam was performed and was normal. The colonoscope was advanced to the terminal ileum without difficulty. The ileocecal valve was clearly identified. There was severe ci rcumferential inflammation throughout the colon and rectum. The cecum and a short segment of the as cending colon is anastomosed to the rectum. Multiple biopsies were obtained from the cecum and asce nding colon and also from the rectum. There is a thick white mucus secretion circumferentially in [facility] cecum and ascending colon. This does not have the typical appearance of pseudomembranous colitis and washes off fairly easily. However, with this thick white mucus circumferentially throughout ps eudomembranous colitis is considered a possibility. He tested negative for C. diff, 3 different charmaine es by stool studies. IMPRESSION: 1. Short colon with the cecum and a segment of the ascending colon anastomosis to the rectum. 2. Severe diffuse inflammation throughout the rectum and colon with erythema and granularity and fr iability. There was a thick white coating of the colon with mucus production. This does not have [facility] typical appearance of pseudomembranes however, with the thick white circumferential production of this mucous we should cover potential for C. diff. His stool studies have been negative for C. dif repeatedly. 3. Normal terminal ileum. RECOMMENDATIONS: 1. Restart mesalamine. We will give Lialda 1.2 grams 2 tablets daily. He states that higher doses worsen the diarrhea. 2. Start vancomycin 125 mg orally 4 times a day for 10 days. Will also give 500 mg in his enema 4 times a day for the next 2 days. 3. Await histopathology. 4. He has had no obvious improvement with the methylprednisolone. I will change him over to zahida pena in the morning. 5. Will plan to start Humira. I will initiate this process for approval as an outpatient through [facility] now. In the meantime, check a Quantiferon and hepatitis B surface antigen.
[2017-02-22] MEDS: Mesalamine DR 400 mg Capsule PO SCH ×2 (15:42→21:58)
[2017-02-22] MEDS ORDERED: Vancomycin HCl 25 MG/ML Oral FS SCH (17:00)
[2017-02-22] MEDS: HumaLOG 300 UNITS/3 ML VIAL SC PRN (17:17)
[2017-02-22] MEDS: Vancomycin HCl 25 MG/ML Oral PO SCH ×2 (17:18→21:59)
[2017-02-22] MEDS: Vancomycin HCl 500 MG, Sodium Chloride 0.9% 100 ML PR SCH ×2 (20:37)
[2017-02-22] MEDS: Simvastatin 5 MG TAB PO SCH (21:58)
[2017-02-23] MEDS: Vancomycin HCl 500 MG, Sodium Chloride 0.9% 100 ML PR SCH ×10 (00:15→23:00)
[2017-02-23] MEDS: Insulin Detemir 100 UNITS/ML 5 UNITS in Pre-Filled Syringe 1 EACH SC SCH ×2 (09:08→21:39)
[2017-02-23] MEDS: Saccharomyces boulardii 250 MG CAP PO SCH (09:09)
[2017-02-23] MEDS: Enoxaparin Sodium 30 MG/0.3 ML SYRINGE SC SCH (09:10)
[2017-02-23] MEDS: glipiZIDE 5 MG TAB PO SCH ×2 (09:10→18:22)
[2017-02-23] MEDS: Famotidine 20 MG TAB PO SCH ×2 (09:10→21:39)
[2017-02-23] MEDS: predniSONE 20 MG TAB PO SCH (09:10)
[2017-02-23] MEDS: Mesalamine DR 400 mg Capsule PO SCH ×3 (09:11→21:39)
[2017-02-23] MEDS: Vancomycin HCl 25 MG/ML Oral PO SCH ×4 (09:13→21:39)
[2017-02-23 09:18] LABS: Hepatitis A Total ABS Negative (Negative)
--- NOTE | 2017-02-23 10:59 | PDOC.PN ---
- Subjective Encounter Start Date: 02/23/17 Encounter Start Time: 10:00 pt has hematochezia, wants regular diet, no fever - Objective Resuscitation Status: Resuscitation Status FULL:Full Resuscitation MAR Reviewed: Yes Vital Signs & Weight: Vital Signs (12 hours) Temp Pulse Resp BP Pulse Ox 02/23/17 08:00 97.6 F 59 L 20 137/82 97 Weight Weight 231 lb 6 oz I&O: 02/22/17 02/23/17 02/24/17 06:59 06:59 06:59 Intake Total 1200 1760 240 Balance 1200 1760 240 Result Diagrams: 02/22/17 04:01 02/22/17 04:01 Additional Labs: Accuchecks 02/23/17 02/22/17 02/22/17 05:51 20:55 16:32 POC Glucose 230 H 218 H 276 H Phys Exam - Physical Examination Constitutional: NAD HEENT: PERRLA, moist MMs, sclera anicteric Neck: no JVD, supple Respiratory: no wheezing, no rales, no rhonchi Cardiovascular: RRR, no significant murmur, no rub Gastrointestinal: soft, non-tender, no distention, positive bowel sounds Musculoskeletal: no edema, pulses present Neurological: non-focal, normal sensation, moves all 4 limbs Psychiatric: normal affect, A&O x 3 Skin: no rash, normal turgor Dx/Plan (1) Bacteremia due to Klebsiella pneumoniae Code(s): R78.81 - BACTEREMIA Status: Acute Comment: unclear source (2) Exacerbation of ulcerative colitis Code(s): K51.90 - ULCERATIVE COLITIS, UNSPECIFIED, WITHOUT COMPLICATIONS Status: Acute (3) Metabolic acidosis Code(s): E87.2 - ACIDOSIS Status: Acute (4) Sepsis Code(s): A41.9 - SEPSIS, UNSPECIFIED ORGANISM Status: Acute Comment: sec to klebsiella (5) UTI (urinary tract infection) Status: Acute Qualifiers: Urinary tract infection type: acute cystitis Hematuria presence: without hematuria Qualified Code(s): N30.00 - Acute cystitis without hematuria (6) DM type 2 (diabetes mellitus, type 2) Status: Chronic Qualifiers: Diabetes mellitus complication status: with unspecified complications Diabetes mellitus intermediate manager insulin use: without [facility] use Qualified Code( s): E11.8 - Type 2 diabetes mellitus with unspecified complications (7) Dyslipidemia Code(s): E78.5 - HYPERLIPIDEMIA, UNSPECIFIED Status: Chronic (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 Review of Systems - Review of Systems Constitutional: negative: Fever, Chills, Sweats, Weakness, Malaise, Other ENT: negative: Ear Pain, Ear Discharge, Nose Pain, Nose Discharge, Nose Congestion, Mouth Pain, Mouth Swelling, Throat Pain, Throat Swelling, Other Respiratory: negative: Cough, Dry, Shortness of Breath, Hemoptysis, SOB with Excertion, Pleuritic Pain, Sputum, Wheezing Cardiovascular: negative: Chest Pain, Palpitations, Orthopnea, Paroxysmal Noc. Dyspnea, Edema, Light Headedness, Other Gastrointestinal: Hematochezia. negative: Nausea, Vomiting, Abdominal Pain, Diarrhea, Constipation, Melena, Other Genitourinary: negative: Dysuria, Frequency, Incontinence, Hematuria, Retention , Other Musculoskeletal: negative: Neck Pain, Shoulder Pain, Arm Pain, Back Pain, Hand Pain, Leg Pain, Foot Pain, Other Skin: negative: Rash, Lesions, August, Bruising, Other - Medications/Allergies Allergies/Adverse Reactions: Allergies Allergy/AdvReac Type Severity Reaction Status Date / Time No Known Allergies Allergy Verified 02/14/17 21:20 Medications: Current Medications Acetaminophen (Tylenol) 650 mg PO Q4H PRN PRN Reason: Headache/Fever or Pain Last Admin: 02/15/17 05:41 Dose: 650 mg Hydrocodone Bitart/Acetaminophen ([place] 5/325) 1 tab PO Q4H PRN PRN Reason: Moderate Pain (4-6) Al Hydroxide/Mg Hydroxide (Maalox) 15 ml PO Q4H PRN PRN Reason: Heartburn or Indigestion Artificial Tears (Tears Naturale) 0 drop EA EYE PRN PRN PRN Reason: Dry Eyes Vancomycin HCl 500 mg/ Sodium (Chloride 100 ml) 0 mg OK Q6HR CARLA Stop: 10/20/17 12:01 Last Admin: 02/23/17 06:44 Dose: 100 ml Dextrose/Water (Dextrose 50%) 25 gm SLOW IVP PRN PRN PRN Reason: Hypoglycemia Enoxaparin Sodium (Lovenox) 30 mg SC 0900 [facility] Last Admin: 02/23/17 09:10 Dose: 30 mg Famotidine (Pepcid) 20 mg PO BID [facility] Last Admin: 02/23/17 09:10 Dose: 20 mg Glipizide (Glucotrol) 5 mg PO BID-AC [facility] Last Admin: 02/23/17 09:10 Dose: 5 mg Glucagon (Glucagon) 1 mg IM PRN PRN PRN Reason: Hypoglycemia Guaifenesin (Robitussin Sf) 200 mg PO Q4H PRN PRN Reason: Cough Hydralazine HCl (Apresoline) 10 mg SLOW IVP Q4H PRN PRN Reason: Systolic BP > 180 Dextrose/Water (D5w) 1,000 mls @ 0 mls/hr IV .Q0M PRN; As Directed PRN Reason: Hypoglycemia Insulin Detemir 5 units/ (Miscellaneous Medication) 0.05 mls @ 0 mls/hr SC HS [facility] Last Admin: 02/22/17 21:59 Dose: 0.05 mls Insulin Detemir 5 units/ (Miscellaneous Medication) 0.05 mls @ 0 mls/hr SC QAM [facility] Last Admin: 02/23/17 09:08 Dose: 0.05 mls Insulin Human Lispro (Humalog) 0 units SC .MODERATE SLIDING SC PRN PRN Reason: Moderate Correctional Scale Last Admin: 02/22/17 17:17 Dose: 6 unit Insulin Human Lispro (Humalog) 0 units SC .BEDTIME SLIDING SC PRN PRN Reason: Bedtime Correctional Scale Last Admin: 02/20/17 21:30 Dose: 3 unit Levofloxacin (Levaquin) 500 mg PO 0600 [facility] Last Admin: 02/23/17 06:12 Dose: 500 mg Loperamide HCl (Imodium) 2 mg PO PRN PRN PRN Reason: Diarrhea/Loose Stools Loratadine (Claritin) 10 mg PO DAILYPRN PRN PRN Reason: Sinus Symptoms Magnesium Hydroxide (Milk Of Magnesium) 30 ml PO DAILYPRN PRN PRN Reason: Constipation Mesalamine (Delzicol Dr) 800 mg PO TID [facility] Last Admin: 02/23/17 09:11 Dose: 800 mg Mineral Oil/White Petrolatum (Eucerin Cream) 0 gm TOP BIDPRN PRN PRN Reason: Dry Skin Ondansetron HCl (Zofran Odt) 4 mg PO Q6H PRN PRN Reason: Nausea/Vomiting Ondansetron HCl (Zofran) 4 mg IVP Q6H PRN PRN Reason: Nausea/Vomiting Prednisone (Prednisone) 40 mg PO QAM-[facility] Last Admin: 02/23/17 09:10 Dose: 40 mg Saccharomyces Boulardii (Florastor) 250 mg PO DAILY [facility] Last Admin: 02/23/17 09:09 Dose: 250 mg Simvastatin (Zocor) 10 mg PO HS [facility] Last Admin: 02/22/17 21:58 Dose: 10 mg Sodium Chloride (Flush - Normal Saline) 10 ml IVF Q12HR [facility] Last Admin: 02/23/17 09:11 Dose: 10 ml Sodium Chloride (Flush - Normal Saline) 10 ml IVF PRN PRN PRN Reason: Saline Flush Last Admin: 02/21/17 13:29 Dose: 10 ml Sodium Chloride ([place] [facility] 0.65%) 0 ml EA NARE QIDPRN PRN PRN Reason: Nasal Congestion Temazepam (Restoril) 15 mg PO HSPRN PRN PRN Reason: Insomnia Vancomycin HCl (First Vancomycin) 125 mg PO QID [facility] Last Admin: 02/23/17 09:13 Dose: 125 mg
[2017-02-23] MEDS: Acetaminophen 325 MG TAB PO PRN (11:44)
[2017-02-23] MEDS: HumaLOG 300 UNITS/3 ML VIAL SC PRN ×2 (13:04→21:50)
[2017-02-23 14:25] VITALS: BMI 33.1
[2017-02-23] MEDS: Simvastatin 5 MG TAB PO SCH (21:39)
--- NOTE | 2017-02-23 23:13 | PRG ---
DATE OF SERVICE: 02/23/2017 SUBJECTIVE: Mr. Basurto still had multiple stools per day. He has had some joint pain in his hands a nd back and wrists. OBJECTIVE: VITAL SIGNS: Temperature 97.4, pulse 63, blood pressure 118/72. GENERAL: He is in no acute distress. He is awake and alert. LUNGS: Clear to auscultation bilaterally. HEART: Regular rate and rhythm. ABDOMEN: Soft, nontender, nondistended. Bowel sounds are present. EXTREMITIES: No lower extremity edema, does have a blister on the dorsum of both feet. LABORATORY DATA: White blood cell count 20.2, hemoglobin 14.7, platelets 340, blood sugars continue to run in the 218 to 287 range. IMPRESSION: 1. Exacerbation of chronic ulcerative colitis. 2. White exudate in the colon being treated empirically for C. diff. His stool studies have been n egative for C. diff. The biopsies from the colon showed chronic ulcerative colitis. RECOMMENDATIONS: 1. Would change to prednisone from IV Solu-Medrol today. 2. He is receiving vancomycin by mouth for a 10-day course. He is receiving 2 days of vancomycin e nema. He has a short segment of cecum and ascending colon connected to the rectum. 3. He is restarted on mesalamine today 800 mg 3 times daily. He had been on only out as an outpati ent previously. 4. Continue probiotics. 5. He has been on Levaquin for Klebsiella, blood culture positive earlier in the hospital stay. 6. I think we will need to start Humira. He prefers to Humira over Remicade due to transportation difficulties [place] of town. QuantiFERON has been ordered and is pending. Hepatitis B surface antigen is negative.
[2017-02-24] MEDS: Vancomycin HCl 500 MG, Sodium Chloride 0.9% 100 ML PR SCH ×8 (06:53→23:33)
[2017-02-24] MEDS: HumaLOG 300 UNITS/3 ML VIAL SC PRN ×2 (07:10→17:07)
[2017-02-24] MEDS: Saccharomyces boulardii 250 MG CAP PO SCH (09:43)
[2017-02-24] MEDS: Famotidine 20 MG TAB PO SCH ×2 (09:44→20:19)
[2017-02-24] MEDS: Acetaminophen 325 MG TAB PO PRN (09:44)
[2017-02-24] MEDS: predniSONE 20 MG TAB PO SCH (09:45)
[2017-02-24] MEDS: glipiZIDE 5 MG TAB PO SCH ×2 (09:45→16:38)
[2017-02-24] MEDS: Mesalamine DR 400 mg Capsule PO SCH ×3 (09:46→20:18)
[2017-02-24] MEDS: Enoxaparin Sodium 30 MG/0.3 ML SYRINGE SC SCH (09:50)
[2017-02-24] MEDS: Insulin Detemir 100 UNITS/ML 5 UNITS in Pre-Filled Syringe 1 EACH SC SCH ×2 (09:52→20:21)
[2017-02-24] MEDS: Vancomycin HCl 25 MG/ML Oral PO SCH ×4 (09:52→20:19)
--- NOTE | 2017-02-24 12:11 | PDOC.PN ---
- Subjective Encounter Start Date: 02/24/17 Encounter Start Time: 10:35 Patient seen and examined. No new complaints. No overnight events - Objective Resuscitation Status: Resuscitation Status FULL:Full Resuscitation MAR Reviewed: Yes Vital Signs & Weight: Vital Signs (12 hours) Temp Pulse Resp BP Pulse Ox 02/24/17 08:00 97.8 F 82 22 H 118/69 98 Weight Admit Weight 231 lb 6 oz Weight 231 lb I&O: 02/23/17 02/24/17 02/25/17 06:59 06:59 06:59 Intake Total 1760 720 Balance 1760 720 Result Diagrams: 02/22/17 04:01 02/22/17 04:01 Additional Labs: Accuchecks 02/24/17 02/23/17 02/23/17 05:19 20:48 16:43 POC Glucose 210 H 297 H 287 H 02/23/17 12:30 POC Glucose 226 H Phys Exam - Physical Examination Constitutional: NAD HEENT: PERRLA, moist MMs, sclera anicteric Neck: no JVD, supple Respiratory: no wheezing, no rales, no rhonchi Cardiovascular: RRR, no significant murmur, no rub Gastrointestinal: soft, non-tender, no distention, positive bowel sounds Musculoskeletal: no edema, pulses present Neurological: non-focal, normal sensation, moves all 4 limbs Psychiatric: normal affect, A&O x 3 Skin: no rash, normal turgor Dx/Plan (1) Bacteremia due to Klebsiella pneumoniae Code(s): R78.81 - BACTEREMIA Status: Acute Comment: unclear source (2) Exacerbation of ulcerative colitis Code(s): K51.90 - ULCERATIVE COLITIS, UNSPECIFIED, WITHOUT COMPLICATIONS Status: Acute (3) Metabolic acidosis Code(s): E87.2 - ACIDOSIS Status: Acute (4) Sepsis Code(s): A41.9 - SEPSIS, UNSPECIFIED ORGANISM Status: Acute Comment: sec to klebsiella (5) UTI (urinary tract infection) Status: Acute Qualifiers: Urinary tract infection type: acute cystitis Hematuria presence: without hematuria Qualified Code(s): N30.00 - Acute cystitis without hematuria (6) DM type 2 (diabetes mellitus, type 2) Status: Chronic Qualifiers: Diabetes mellitus complication status: with unspecified complications Diabetes mellitus intermodal dispatcher insulin use: without intermodal dispatcher use Qualified Code( s): E11.8 - Type 2 diabetes mellitus with unspecified complications (7) Dyslipidemia Code(s): E78.5 - HYPERLIPIDEMIA, UNSPECIFIED Status: Chronic (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 Review of Systems - Review of Systems ENT: negative: Ear Pain, Ear Discharge, Nose Pain, Nose Discharge, Nose Congestion, Mouth Pain, Mouth Swelling, Throat Pain, Throat Swelling, Other Respiratory: negative: Cough, Dry, Shortness of Breath, Hemoptysis, SOB with Excertion, Pleuritic Pain, Sputum, Wheezing Cardiovascular: negative: Chest Pain, Palpitations, Orthopnea, Paroxysmal Noc. Dyspnea, Edema, Light Headedness, Other Gastrointestinal: Diarrhea, Hematochezia. negative: Nausea, Vomiting, Abdominal Pain, Constipation, Melena, Other Genitourinary: negative: Dysuria, Frequency, Incontinence, Hematuria, Retention , Other Musculoskeletal: negative: Neck Pain, Shoulder Pain, Arm Pain, Back Pain, Hand Pain, Leg Pain, Foot Pain, Other Skin: negative: Rash, Lesions, August, Bruising, Other - Medications/Allergies Allergies/Adverse Reactions: Allergies Allergy/AdvReac Type Severity Reaction Status Date / Time No Known Allergies Allergy Verified 02/14/17 21:20 Medications: Current Medications Acetaminophen (Tylenol) 650 mg PO Q4H PRN PRN Reason: Headache/Fever or Pain Last Admin: 02/24/17 09:44 Dose: 650 mg Hydrocodone Bitart/Acetaminophen ([place] 5/325) 1 tab PO Q4H PRN PRN Reason: Moderate Pain (4-6) Al Hydroxide/Mg Hydroxide (Maalox) 15 ml PO Q4H PRN PRN Reason: Heartburn or Indigestion Artificial Tears (Tears Naturale) 0 drop EA EYE PRN PRN PRN Reason: Dry Eyes Dextrose/Water (Dextrose 50%) 25 gm SLOW IVP PRN PRN PRN Reason: Hypoglycemia Enoxaparin Sodium (Lovenox) 30 mg SC 0900 [facility] Last Admin: 02/24/17 09:50 Dose: 30 mg Famotidine (Pepcid) 20 mg PO BID [facility] Last Admin: 02/24/17 09:44 Dose: 20 mg Glipizide (Glucotrol) 5 mg PO BID-AC [facility] Last Admin: 02/24/17 09:45 Dose: 5 mg Glucagon (Glucagon) 1 mg IM PRN PRN PRN Reason: Hypoglycemia Guaifenesin (Robitussin Sf) 200 mg PO Q4H PRN PRN Reason: Cough Hydralazine HCl (Apresoline) 10 mg SLOW IVP Q4H PRN PRN Reason: Systolic BP > 180 Dextrose/Water (D5w) 1,000 mls @ 0 mls/hr IV .Q0M PRN; As Directed PRN Reason: Hypoglycemia Insulin Detemir 5 units/ (Miscellaneous Medication) 0.05 mls @ 0 mls/hr SC HS [facility] Last Admin: 02/23/17 21:39 Dose: 0.05 mls Insulin Detemir 5 units/ (Miscellaneous Medication) 0.05 mls @ 0 mls/hr SC QAM [facility] Last Admin: 02/24/17 09:52 Dose: 0.05 mls Insulin Human Lispro (Humalog) 0 units SC .MODERATE SLIDING SC PRN PRN Reason: Moderate Correctional Scale Last Admin: 02/24/17 07:10 Dose: 4 unit Insulin Human Lispro (Humalog) 0 units SC .BEDTIME SLIDING SC PRN PRN Reason: Bedtime Correctional Scale Last Admin: 02/23/17 21:50 Dose: 3 unit Levofloxacin (Levaquin) 500 mg PO 0600 [facility] Last Admin: 02/24/17 06:53 Dose: 500 mg Loperamide HCl (Imodium) 2 mg PO PRN PRN PRN Reason: Diarrhea/Loose Stools Loratadine (Claritin) 10 mg PO DAILYPRN PRN PRN Reason: Sinus Symptoms Magnesium Hydroxide (Milk Of Magnesium) 30 ml PO DAILYPRN PRN PRN Reason: Constipation Mesalamine (Delzicol Dr) 800 mg PO TID [facility] Last Admin: 02/24/17 09:46 Dose: 800 mg Mineral Oil/White Petrolatum (Eucerin Cream) 0 gm TOP BIDPRN PRN PRN Reason: Dry Skin Ondansetron HCl (Zofran Odt) 4 mg PO Q6H PRN PRN Reason: Nausea/Vomiting Ondansetron HCl (Zofran) 4 mg IVP Q6H PRN PRN Reason: Nausea/Vomiting Prednisone (Prednisone) 40 mg PO QAM-WM [facility] Last Admin: 02/24/17 09:45 Dose: 40 mg Saccharomyces Boulardii (Florastor) 250 mg PO DAILY [facility] Last Admin: 02/24/17 09:43 Dose: 250 mg Simvastatin (Zocor) 10 mg PO HS [facility] Last Admin: 02/23/17 21:39 Dose: 10 mg Sodium Chloride (Flush - Normal Saline) 10 ml IVF Q12HR [facility] Last Admin: 02/24/17 09:53 Dose: 10 ml Sodium Chloride (Flush - Normal Saline) 10 ml IVF PRN PRN PRN Reason: Saline Flush Last Admin: 02/21/17 13:29 Dose: 10 ml Sodium Chloride ([place] [facility] [place] 0.65%) 0 ml EA NARE QIDPRN PRN PRN Reason: Nasal Congestion Temazepam (Restoril) 15 mg PO HSPRN PRN PRN Reason: Insomnia Vancomycin HCl (First Vancomycin) 125 mg PO QID [facility] Last Admin: 02/24/17 09:52 Dose: 125 mg
--- NOTE | 2017-02-24 16:24 | PRG ---
DATE OF SERVICE: 02/24/2017 GASTROENTEROLOGY PROGRESS NOTE SUBJECTIVE: Mr. Basurto is having improvement in his frequency of bowel movements. He has had no blo od with the stool and no abdominal pain and no rectal pain. He passed two mushy brown bowel movemen ts in addition to the 2 bowel movements he had with the enemas. He is tolerating a solid diet well. OBJECTIVE: VITAL SIGNS: Temperature 97.6, pulse 75, blood pressure 99/61. GENERAL: He is in no acute distress, alert and oriented x3. HEENT: Eyes have no scleral icterus. LUNGS: Clear to auscultation bilaterally. HEART: Regular rate and rhythm. ABDOMEN: Soft, nontender, and nondistended. Bowel sounds are present. EXTREMITIES: 1+ lower extremity edema. He has blister over the dorsum of both feet. IMPRESSION: Exacerbation of chronic ulcerative colitis. Followup endoscopy with biopsies show kevin re colitis throughout the rectum and the remaining colon, which is just the cecum and the ascending colon anastomosed to the rectum. He had a circumferential white exudate which did not appear typica l for pseudomembranes; however, in light of this finding, he is being covered with vancomycin for Cl ostridium difficile. He will receive a 10-day course of vancomycin orally 4 times daily. In additi on to that, he has received vancomycin enemas yesterday and today due to the very short colon and ex pected low exposure time with oral dosing. He has one dose of the vancomycin left. In the past, he had been controlled well with mesalamine alone. Since August he has flared and the mesalamine plus steroids has been inadequate to control his symptoms. He has had some improvement with IV steroids and has since been changed to prednisone on this hospitalization. Ultimate plan at this point is to start Humira once it is improved. RECOMMENDATIONS: 1. Continue prednisone taper. 2. Complete a 10-day course of vancomycin orally 125 mg 4 times a day. 3. He has been restarted on mesalamine 800 mg 3 times a day as an inpatient. As an outpatient, he had been on Lialda 2 tablets daily. In the past, he has reported more diarrhea with higher doses. 4. He is on levofloxacin for Klebsiella, positive blood culture. 5. We are awaiting TB QuantiFERON. We have initiated approval for Remicade as an outpatient to the office. 6. Dr. Muro will cover the weekend.
[2017-02-24] MEDS: Simvastatin 5 MG TAB PO SCH (20:18)
[2017-02-25] MEDS: predniSONE 20 MG TAB PO SCH (07:35)
[2017-02-25] MEDS: glipiZIDE 5 MG TAB PO SCH ×2 (07:35→16:31)
[2017-02-25] MEDS: Enoxaparin Sodium 30 MG/0.3 ML SYRINGE SC SCH (09:53)
[2017-02-25] MEDS: Famotidine 20 MG TAB PO SCH ×2 (09:54→21:19)
[2017-02-25] MEDS: Mesalamine DR 400 mg Capsule PO SCH ×3 (09:54→21:23)
[2017-02-25] MEDS: Vancomycin HCl 25 MG/ML Oral PO SCH ×4 (09:54→21:19)
[2017-02-25] MEDS: Saccharomyces boulardii 250 MG CAP PO SCH (09:55)
[2017-02-25] MEDS: Insulin Detemir 100 UNITS/ML 5 UNITS in Pre-Filled Syringe 1 EACH SC SCH ×2 (09:57→21:20)
--- NOTE | 2017-02-25 11:53 | PDOC.PN ---
- Subjective Encounter Start Date: 02/25/17 Encounter Start Time: 10:40 Patient seen and examined. No new complaints. No overnight events - Objective Resuscitation Status: Resuscitation Status FULL:Full Resuscitation MAR Reviewed: Yes Vital Signs & Weight: Vital Signs (12 hours) Temp Pulse Resp BP Pulse Ox 02/25/17 07:31 98.1 F 67 18 119/77 97 Weight Admit Weight 231 lb 6 oz Weight 231 lb I&O: 02/24/17 02/25/17 02/26/17 06:59 06:59 06:59 Intake Total 720 Balance 720 Result Diagrams: 02/22/17 04:01 02/22/17 04:01 Additional Labs: Accuchecks 02/25/17 02/24/17 02/24/17 05:46 20:28 16:46 POC Glucose 134 H 295 H 243 H 02/24/17 12:08 POC Glucose 140 H Phys Exam - Physical Examination Constitutional: NAD HEENT: PERRLA, moist MMs, sclera anicteric Neck: no JVD, supple Respiratory: no wheezing, no rales, no rhonchi Cardiovascular: RRR, no significant murmur, no rub Gastrointestinal: soft, non-tender, no distention, positive bowel sounds Musculoskeletal: no edema, pulses present Neurological: non-focal, normal sensation Psychiatric: normal affect, A&O x 3 Skin: no rash, normal turgor Dx/Plan (1) Bacteremia due to Klebsiella pneumoniae Code(s): R78.81 - BACTEREMIA Status: Acute Comment: unclear source (2) Exacerbation of ulcerative colitis Code(s): K51.90 - ULCERATIVE COLITIS, UNSPECIFIED, WITHOUT COMPLICATIONS Status: Acute (3) Metabolic acidosis Code(s): E87.2 - ACIDOSIS Status: Acute (4) Sepsis Code(s): A41.9 - SEPSIS, UNSPECIFIED ORGANISM Status: Acute Comment: sec to klebsiella (5) UTI (urinary tract infection) Status: Acute Qualifiers: Urinary tract infection type: acute cystitis Hematuria presence: without hematuria Qualified Code(s): N30.00 - Acute cystitis without hematuria (6) DM type 2 (diabetes mellitus, type 2) Status: Chronic Qualifiers: Diabetes mellitus complication status: with unspecified complications Diabetes mellitus middle or intermediate school principal insulin use: without middle or intermediate school principal use Qualified Code( s): E11.8 - Type 2 diabetes mellitus with unspecified complications (7) Dyslipidemia Code(s): E78.5 - HYPERLIPIDEMIA, UNSPECIFIED Status: Chronic (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 Review of Systems - Review of Systems Constitutional: negative: Fever, Chills, Sweats, Weakness, Malaise, Other Eyes: negative: Pain, Vision Change, Conjunctivae Inflammation, Eyelid Inflammation, Redness, Other ENT: negative: Ear Pain, Ear Discharge, Nose Pain, Nose Discharge, Nose Congestion, Mouth Pain, Mouth Swelling, Throat Pain, Throat Swelling, Other Respiratory: negative: Cough, Dry, Shortness of Breath, Hemoptysis, SOB with Excertion, Pleuritic Pain, Sputum, Wheezing Cardiovascular: negative: Chest Pain, Palpitations, Orthopnea, Paroxysmal Noc. Dyspnea, Edema, Light Headedness, Other Gastrointestinal: Diarrhea, Hematochezia. negative: Nausea, Vomiting, Abdominal Pain, Constipation, Melena, Other Genitourinary: negative: Dysuria, Frequency, Incontinence, Hematuria, Retention , Other Musculoskeletal: negative: Neck Pain, Shoulder Pain, Arm Pain, Back Pain, Hand Pain, Leg Pain, Foot Pain, Other - Medications/Allergies Allergies/Adverse Reactions: Allergies Allergy/AdvReac Type Severity Reaction Status Date / Time No Known Allergies Allergy Verified 02/14/17 21:20 Medications: Current Medications Acetaminophen (Tylenol) 650 mg PO Q4H PRN PRN Reason: Headache/Fever or Pain Last Admin: 02/24/17 09:44 Dose: 650 mg Hydrocodone Bitart/Acetaminophen (Harper 5/325) 1 tab PO Q4H PRN PRN Reason: Moderate Pain (4-6) Al Hydroxide/Mg Hydroxide (Maalox) 15 ml PO Q4H PRN PRN Reason: Heartburn or Indigestion Artificial Tears (Tears Naturale) 0 drop EA EYE PRN PRN PRN Reason: Dry Eyes Dextrose/Water (Dextrose 50%) 25 gm SLOW IVP PRN PRN PRN Reason: Hypoglycemia Enoxaparin Sodium (Lovenox) 30 mg SC 0900 [facility] Last Admin: 02/25/17 09:53 Dose: 30 mg Famotidine (Pepcid) 20 mg PO BID [facility] Last Admin: 02/25/17 09:54 Dose: 20 mg Glipizide (Glucotrol) 5 mg PO BID-AC [facility] Last Admin: 02/25/17 07:35 Dose: 5 mg Glucagon (Glucagon) 1 mg IM PRN PRN PRN Reason: Hypoglycemia Guaifenesin (Robitussin Sf) 200 mg PO Q4H PRN PRN Reason: Cough Hydralazine HCl (Apresoline) 10 mg SLOW IVP Q4H PRN PRN Reason: Systolic BP > 180 Dextrose/Water (D5w) 1,000 mls @ 0 mls/hr IV .Q0M PRN; As Directed PRN Reason: Hypoglycemia Insulin Detemir 5 units/ (Miscellaneous Medication) 0.05 mls @ 0 mls/hr SC HS [facility] Last Admin: 02/24/17 20:21 Dose: 0.05 mls Insulin Detemir 5 units/ (Miscellaneous Medication) 0.05 mls @ 0 mls/hr SC QAM [facility] Last Admin: 02/25/17 09:57 Dose: 0.05 mls Insulin Human Lispro (Humalog) 0 units SC .MODERATE SLIDING SC PRN PRN Reason: Moderate Correctional Scale Last Admin: 02/24/17 17:07 Dose: 4 unit Insulin Human Lispro (Humalog) 0 units SC .BEDTIME SLIDING SC PRN PRN Reason: Bedtime Correctional Scale Last Admin: 02/23/17 21:50 Dose: 3 unit Levofloxacin (Levaquin) 500 mg PO 0600 [facility] Last Admin: 02/25/17 04:52 Dose: 500 mg Loperamide HCl (Imodium) 2 mg PO PRN PRN PRN Reason: Diarrhea/Loose Stools Loratadine (Claritin) 10 mg PO DAILYPRN PRN PRN Reason: Sinus Symptoms Magnesium Hydroxide (Milk Of Magnesium) 30 ml PO DAILYPRN PRN PRN Reason: Constipation Mesalamine (Delzicol Dr) 800 mg PO TID [facility] Last Admin: 02/25/17 09:54 Dose: 800 mg Mineral Oil/White Petrolatum (Eucerin Cream) 0 gm TOP BIDPRN PRN PRN Reason: Dry Skin Ondansetron HCl (Zofran Odt) 4 mg PO Q6H PRN PRN Reason: Nausea/Vomiting Ondansetron HCl (Zofran) 4 mg IVP Q6H PRN PRN Reason: Nausea/Vomiting Prednisone (Prednisone) 40 mg PO QAM-WM [facility] Last Admin: 02/25/17 07:35 Dose: 40 mg Saccharomyces Boulardii (Florastor) 250 mg PO DAILY [facility] Last Admin: 02/25/17 09:55 Dose: 250 mg Simvastatin (Zocor) 10 mg PO HS [facility] Last Admin: 02/24/17 20:18 Dose: 10 mg Sodium Chloride (Flush - Normal Saline) 10 ml IVF Q12HR [facility] Last Admin: 02/25/17 09:56 Dose: 10 ml Sodium Chloride (Flush - Normal Saline) 10 ml IVF PRN PRN PRN Reason: Saline Flush Last Admin: 02/21/17 13:29 Dose: 10 ml Sodium Chloride (Trego Nasal [place] 0.65%) 0 ml EA NARE QIDPRN PRN PRN Reason: Nasal Congestion Temazepam (Restoril) 15 mg PO HSPRN PRN PRN Reason: Insomnia Vancomycin HCl (First Vancomycin) 125 mg PO QID [facility] Last Admin: 02/25/17 09:54 Dose: 125 mg
--- NOTE | 2017-02-25 16:44 | PRG ---
DATE OF SERVICE: 02/25/2017 This is a cross coverage for Dr. Thomas Gore. SUBJECTIVE: Mr. Thomas Basurto is a 76-year-old male with history of chronic ulcerative co litis with flareup. The patient has had recent colonoscopy, which revealed severe colitis. The pat ient apparently has had a partial colectomy and he has mostly the ascending colon and cecum . The patient is on vancomycin, prednisone, and mesalamine. He is feeling better actually. He has no abdominal pain. He has good appetite. No nausea, no vomiting. He still has frequent stools. He had 4 stools today. The first stool was hard one, next stools are soft. The last BM had some small amount of blood today. Overall, he is feeling better and he actually wants to go home. PHYSICAL EXAMINATION: GENERAL: Appears comfortable, afebrile. VITAL SIGNS: Pulse is 67, blood pressure 119/77. CARDIOVASCULAR: First and second heart sounds are normal. LUNGS: Clear to auscultation. ABDOMEN: Soft to palpate. Abdomen is nontender. No organomegaly or masses. PLAN: 1. Continue present treatment. 2. If he does well, we may consider discharge home tomorrow on prednisone taper and vancomycin. Th e patient will be started on Humira as an outpatient in the near future.
[2017-02-25] MEDS: Acetaminophen 325 MG TAB PO PRN (16:52)
[2017-02-25] MEDS: Simvastatin 5 MG TAB PO SCH (21:19)
[2017-02-25] MEDS: HumaLOG 300 UNITS/3 ML VIAL SC PRN (21:20)
[2017-02-26] MEDS: HumaLOG 300 UNITS/3 ML VIAL SC PRN (06:05)
[2017-02-26] MEDS: Enoxaparin Sodium 30 MG/0.3 ML SYRINGE SC SCH (07:39)
[2017-02-26] MEDS: Mesalamine DR 400 mg Capsule PO SCH (07:39)
[2017-02-26] MEDS: glipiZIDE 5 MG TAB PO SCH (07:40)
[2017-02-26] MEDS: Famotidine 20 MG TAB PO SCH (07:40)
[2017-02-26] MEDS: predniSONE 20 MG TAB PO SCH (07:40)
[2017-02-26] MEDS: Saccharomyces boulardii 250 MG CAP PO SCH (07:40)
[2017-02-26] MEDS: Insulin Detemir 100 UNITS/ML 5 UNITS in Pre-Filled Syringe 1 EACH SC SCH (07:45)
[2017-02-26 08:16] VITALS: BP 133/89; TEMP 97.5
[2017-02-26] MEDS: Vancomycin HCl 25 MG/ML Oral PO SCH ×2 (09:49→12:48)
--- NOTE | 2017-02-26 11:04 | DIS ---
DATE OF ADMISSION: 02/14/2017 DATE OF DISCHARGE: 02/26/2017 PRIMARY CARE PHYSICIAN: Jimi Brown M.D. DISCHARGE DISPOSITION: Home. PRIMARY DISCHARGE DIAGNOSES: Exacerbation of ulcerative colitis, bacteremia due to Klebsiella pneum oniae, leukocytosis due to steroid, metabolic acidosis, urinary tract infection, sepsis, porcelain g allbladder, acute kidney failure. SECONDARY DISCHARGE DIAGNOSES: Obesity with body mass index 33, dyslipidemia, and diabetes type 2. PRIMARY PROCEDURE/OPERATION: Dr. Gore did colonoscopy and patient found with a short colon with ce cum. Severe diffuse inflammation throughout rectum and colon, normal terminal ileum. RADIOLOGICAL INVESTIGATION: Abdomen and pelvis CT scan on admission showed colectomy, porcelain gal lbladder, large ventral abdominal wall hernia. CT chest showed lingular infiltration. SIGNIFICANT LABORATORY DATA: WBC 20.2, hemoglobin 14.7, and platelets 340. INR 1.1. Sodium 134, p otassium 4.4, BUN 27, creatinine 1.12, calcium 8.9, and magnesium 2.2. Urinalysis suggestive of UTI . Hepatitis profile negative. Blood culture was positive for Klebsiella. Repeat blood culture neg ative. Stool for C. diff negative. DISCHARGE MEDICATIONS: Aspirin 162 mg p.o. daily, Lomotil 2 tablets p.o. q.i.d. p.r.n., Pepcid 20 m g p.o. b.i.d., Levaquin 500 mg p.o. daily for 5 more days, losartan 50 mg p.o. daily, mesalamine 800 mg p.o. t.i.d., pravastatin 20 mg p.o. at bedtime, Florastor 250 mg p.o. daily, vancomycin 125 mg q .i.d. for 7 more days, Glucotrol 5 mg p.o. b.i.d., metformin 1000 mg p.o. daily, prednisone 40 mg p. o. daily for 1 week, then 30 mg p.o. daily for 1 week, then 20 mg p.o. daily for one week and then 1 0 mg p.o. daily for 1 week. CONTRAINDICATIONS: None. CODE STATUS: FULL CODE. INPATIENT PROGRAM ARCHITECT: Dr. Gore was following while in hospital. TEST RESULTS PENDING ON DISCHARGE: QuantiFERON-TB Gold test. DISCHARGE PLAN: Post hospital, the patient will follow up with primary care physician in 1 week. T he patient will follow up with Dr. Bao Guzman in 1 week. HOSPITAL COURSE: A 76-year-old male who was admitted by Dr. Duarte on 02/14/2017. Patient was admi tted for diffuse diarrhea, diffuse abdominal pain. He was having hematochezia, we suspected his ulc erative colitis flare. After admission, we did stool for infection workup that came back negative. This patient was also h aving leukocytosis and left shift and sepsis type of picture and his white count was going up at whit[place] t point. Patient also had another CT chest which showed lingular infiltration. His blood culture p ositive for Klebsiella. At this point, our suspicious for Klebsiella pneumoniae positive in blood is probably from GI tract versus pneumonia. While in hospital, he was getting antibiotic therapy. He was receiving oral levo floxacin based on culture and sensitivity result. We decided to treat for a total 2 weeks and patie nt will finish complete course of treatment in next 5 days. Patient was continuously having leukocytosis as well as patient was also having hematochezia and jl rrhea that was related with ulcerative colitis flare and that is why we treated him with IV steroid. Because of IV steroid, his blood sugar was elevated and that is why he required insulin therapy wh ile in hospital. We treated him with steroid and steroid was making him angry and he was also getti ng white count elevated and he was not having any improvement even with steroid and that is why JORGE san decided to do colonoscopy. Colonoscopy showed no change in his clinical presentation with louie nelson. That is why Dr. Gore decided to start on Humira therapy. Necessary preparation is already ongoing with the TB QuantiFERON test is pending and his insurance approval is pending. Dr. Gore de cided to start with p.o. vancomycin and vancomycin enema which was given in hospital and he will fin lee another 7 days, vancomycin p.o. after discharge as per GI recommendation. We started mesalamine while in hospital and with this therapy, patient is doing very well. Now, he has no hematochezia a nd he has formed stool. Dr. Gore is planning to start Humira therapy for his ulcerative colitis which has not responded wel l with routine measures and he will do this therapy after discharge whenever insurance approves as w ell as QuantiFERON TB test has come back negative. At this point, we decided to discharge him on tapering doses of prednisone, mesalamine, and vancomyc in, he will finish Levaquin for another 5 days. The patient is seen and examined at bedside today. I explained necessary precautions about steroid induced hyperglycemia and how to change a modified diet. PHYSICAL EXAMINATION: VITAL SIGNS: Currently temperature 97.5, pulse 67, respiratory rate 20, saturation 97%, blood press ure 133/89. Weight 231 pounds. GENERAL: The patient is currently alert, awake, no acute distress. HEAD: Normocephalic, atraumatic. EYES: Pupils round and reactive to light. Extraocular muscles intact. ENT: Oropharynx within normal limits. Moist mucous membranes. No oral lesions. No pharyngeal louie thema, no exudates. NECK: Supple. LUNGS: Clear. ABDOMEN: Ventral hernia noted, but no peritoneal sign. EXTREMITIES: No edema. NEUROLOGIC: Nonfocal examination. Review of systems is negative. Total time spent on discharge day 31 minutes.
--- NOTE | 2017-02-26 16:13 | PRG ---
DATE OF SERVICE: 02/26/2017 HOSPITAL VISIT NOTE HISTORY OF PRESENT ILLNESS: Thomas Basurto is a 76-year-old male with chronic colitis, wit h recent exacerbation. The patient was hospitalized because of watery diarrhea, abdominal pain, hem atochezia. He underwent a colonoscopy and was found to have severe colitis of the right colon. He was also found to have exudates on colonoscopy. However, his C. difficile toxin is negative. The p atient is on vancomycin 120 mg p.o. 4 times a day. He is also on mesalamine and prednisone, etc. H e is doing better and better every day. His energy level is better. His abdominal pain has resolve d completely. He has not had any hematochezia anymore. He is stool free today, but the stools are actually forming up. He feels hungry and actually wants to go home today. PHYSICAL EXAMINATION: GENERAL: Appears very comfortable. VITAL SIGNS: Stable. HEENT: Conjunctivae clear. CARDIOVASCULAR: First and second heart sounds normal. LUNGS: Clear to auscultation. ABDOMEN: Soft to palpate. Abdomen is nontender. There is no organomegaly or masses. CLINICAL IMPRESSION: Recent flareup of ulcerative colitis, doing much better, on steroids and mesal amine. Apparently, Dr. Gore is planning to start him on Humira as outpatient. His QuantiFERON jagdish ts are pending. The patient can be discharged home later on today on tapering dose of prednisone, v ancomycin and mesalamine. He will call back to see Dr. Gore in the near future for further care.
== END 2017-02-26 13:47 | disposition home or self-care (01) | DRG 872 ==
LOC: ERS 14:18 → T4-B 19:51
PROVIDERS: ADMIT Internal Medicine; ATTEND Internal Medicine
PROC: 0DBK8ZX Excision of Ascending Colon, Via Natural or Artificial Opening Endoscopic, Diagnostic (ICD-10-PCS; principal; 2017-02-22)
PROC: 0DBP8ZX Excision of Rectum, Via Natural or Artificial Opening Endoscopic, Diagnostic (ICD-10-PCS; 2017-02-22)
PROC: 0DBH8ZX Excision of Cecum, Via Natural or Artificial Opening Endoscopic, Diagnostic (ICD-10-PCS; 2017-02-22)
DX: A41.89 Other specified sepsis (principal); N17.9 Acute kidney failure, unspecified; E87.2 Acidosis; E11.65 Type 2 diabetes mellitus with hyperglycemia; K51.90 Ulcerative colitis, unspecified, without complications; D68.61 Antiphospholipid syndrome; N30.00 Acute cystitis without hematuria; K92.1 Melena; B96.1 Klebsiella pneumoniae [K. pneumoniae] as the cause of diseases classified elsewhere; E78.5 Hyperlipidemia, unspecified; K82.8 Other specified diseases of gallbladder; Z79.84 Long term (current) use of oral hypoglycemic drugs; T38.0X5A Adverse effect of glucocorticoids and synthetic analogues, initial encounter; E66.9 Obesity, unspecified; Z68.33 Body mass index [BMI] 33.0-33.9, adult; Z90.49 Acquired absence of other specified parts of digestive tract; K43.9 Ventral hernia without obstruction or gangrene; Z87.891 Personal history of nicotine dependence; Z79.82 Long term (current) use of aspirin; I67.9 Cerebrovascular disease, unspecified; R55 Syncope and collapse; E86.9 Volume depletion, unspecified
CPT/HCPCS: 36415; 36416; 71250; 74177; 80048; 80053; 81001; 83605; 83630; 83735; 84100; 85025; 85610; 85730; 86480; 86704; 86706; 86709; 86803; 86850; 86900; 86901; 87015; 87040; 87045; 87046; 87077; 87086; 87149; 87186; 87324; 87340; 87449; 87899; 88305; 96361; 96374; 96375; A4216; J0692; J1650; J1815; J1956; J2001; J2270; J2405; J2704; J2920; J3370; J7050; J7506

== ENCOUNTER 2017-04-05 11:08 | Inpatient (IN) | payer MEDICARE ==
[2017-04-05 11:46] LABS: #Eosinphils 0.1 thou/uL (0.0-0.7); #Lymphocytes 1.5 thou/uL (1.20-3.40); #Monocytes 1.1 thou/uL (0.11-0.59); #Neutrophils 6.6 thou/uL (1.40-6.50); %Basophils 0.3 % (0.0-1.0); %Eosinophils 0.6 % (0.0-10.0); %Lymphocytes 16.5 % (21.0-51.0); %Monocytes 11.5 % (0.0-10.0); Mean Platelet Volume 7.5 fL (7.4-10.4); White Blood Cell (WBC) Count 9.3 thou/uL (4.8-10.8)
[2017-04-05] MEDS ORDERED: Ibuprofen 200 MG TAB ONE (11:46)
[2017-04-05] MEDS ORDERED: cefTRIAXone\\ROCEPHIN 2 GM in Sodium Chloride 0.9% 100 ML IVPB SCH (12:00)
[2017-04-05 12:09] LABS: Lactic Acid - Sepsis 2.4 mmol/L (0.5-2.2)
--- NOTE | 2017-04-05 12:09 | RAD ---
RADIOGRAPH CHEST 1 VIEW: HISTORY: 76-year-old male with fever. FINDINGS: There is no air space density, pulmonary edema, or pneumothorax. The lateral costophrenic angles are sharp. IMPRESSION: No acute pulmonary findings. jn [] POS: MEGAN
[2017-04-05 12:13] LABS: Troponin I 0.028 ng/mL (< 0.028)
[2017-04-05 12:32] LABS: ALT (SGPT) 18 U/L (8-55); AST (SGOT) 20 U/L (5-34); Alkaline Phosphatase 54 U/L (40-150); Anion Gap 14 mmol/L (10-20); BUN (Urea Nitrogen) 21 mg/dL (8.4-25.7); Bilirubin, Total 1.1 mg/dL (0.2-1.2); CK (CPK) 52 U/L (30-200); Calc. Creatinine Clearance 0 mL/min (70-130); Calcium 8.5 mg/dL (7.8-10.44); Carbon Dioxide 24 mmol/L (23-31); Chloride 104 mmol/L (98-107); Estimated GFR-MDRD 49; Globulin 3.2 g/dL (2.4-3.5); Protein, Total 6.6 g/dL (5.8-8.1)
[2017-04-05 12:52] LABS: Bilirubin Negative (Negative); Blood, Urine Moderate (Negative); Glucose, Urine (Dipstick) Negative (Negative); Ketone, Urine Negative (Negative); Nitrite Negative (Negative); Protein, Urine (Dipstick) 30 mg/dL (Neg-Trace)
[2017-04-05 12:57] LABS: Bacteria/HPF None Seen HPF (None Seen); Squamous Epithelial 0-3 HPF (0-3); WBC/HPF 0-3 HPF (0-3)
[2017-04-05 13:07] LABS: Renal Epithelial None Seen HPF (0-3); Transitional Epithelial 0-3 HPF (0-3)
[2017-04-05] MEDS ORDERED: Ondansetron HCl/PF 4 MG/2 ML Vial IVP PRN (15:35)
[2017-04-05] MEDS ORDERED: Zolpidem Tartrate 5 MG TAB PO PRN (15:35)
[2017-04-05] MEDS ORDERED: Acetaminophen 325 MG TAB PO PRN (15:35)
[2017-04-05] MEDS ORDERED: Dextrose 5% in Water 1,000 ML IV PRN (15:39)
[2017-04-05] MEDS ORDERED: Dextrose 50% Abboject 50 ML SYRINGE SLOW IVP PRN (15:39)
[2017-04-05] MEDS: Sodium Chloride 0.9% 1,000 ML IV SCH ×2 (15:55→23:18)
[2017-04-05 16:18] VITALS: BMI 33.0
--- NOTE | 2017-04-05 16:39 | HP ---
PRIMARY CARE PROVIDER: Dr. Jimi Brown. Referred to the [facility] by [facility]. HISTORY OF PRESENT ILLNESS: Patient states he does not feel bad anywhere. He is oriented x3, compla ining of having spent the whole month of February in [facility]. He states he had an appoint ment with Dr. Brown this afternoon in contrary to his desires they brought him to [place]. He has rep ortedly had a temperature of 102.4 by attorney law clerk with chills and sweats. No focal findings of dysuria, cou gh, hematuria, shortness of breath. PAST MEDICAL HISTORY: Pertinent for ulcerative colitis, diabetes mellitus type 2, dyslipidemia. PAST SURGICAL HISTORY: Partial colectomy with colostomy and subsequent reanastomosis, parathyroidect leobardo surgery. CODE STATUS: FULL. next of kin. CURRENT MEDICATIONS: Aspirin 81 mg a day, Pravachol 10 mg a day, losartan 25 mg a day, Pepcid 20 mg twice a day, glipizide 5 mg a day, metformin 1000 mg a day, hydrocortisone 25 mg twice a day, Imodium 2 tablets q.i.d. p.r.n. ALLERGIES: No known drug allergies. FAMILY HISTORY: There are no inherited diseases, specifically no GI diseases. SOCIAL HISTORY: Former smoker, quit 10 years ago, smoked a pack a day. Denies alcohol. . REVIEW OF SYSTEMS: GENERAL: States he just feels weak. No headaches, dizziness or fainting. EYES: No double vision, blurred vision, flashing lights. ENT: No ear pain or drainage. No nasal bleeding. No trouble swallowing. CARDIAC: No chest pain, orthopnea or paroxysmal nocturnal dyspnea. RESPIRATIONS: No cough, wheezing or asthma. GASTROINTESTINAL: No nausea, vomiting, abdominal pain or change in bowel movements, no blood in his stools. GENITOURINARY: No hematuria, dysuria. MUSCULOSKELETAL: No pain or swelling in his legs. NEUROLOGIC: No strokes, seizures or focal weakness. PSYCHIATRIC: He reports no anxiety or depression. SKIN: No bruises, bleeding or rash. HEME/LYMPH: No tender or swollen lymph nodes in the axilla, inguinal or cervical area. PHYSICAL EXAMINATION: VITAL SIGNS: Blood pressure 118/61, pulse was 103, respirations 14. Initial temperature 101.2. Fin als findings were blood pressure 113/57, pulse 83, respirations 20, temperature 98, room air sat 100. HEENT: Reveal pupils equal, round, and reactive. Extraocular movements are intact. Sclerae white. Tympanic membranes are clear. Nose is clear. Oral mucous membranes are wet. NECK: Supple, without jugular venous distention. CHEST: Clear to auscultation and percussion. HEART: Regular rate and rhythm. No murmurs, no gallops. First and second heart sounds clear. ABDOMEN: Soft, bowel sounds normal. No hepatosplenomegaly, no mass, no rebound, no bruits. EXTREMITIES: Reveal trace edema, no cyanosis or clubbing. PULSES: Carotid, radial, femoral, pedal pulses intact and symmetric. SKIN: Warm and dry without bruises or rash. HEME/LYMPH: No tender or swollen lymph nodes in axilla, inguinal or cervical area. NEUROLOGICAL: Cranial nerves II-XII are intact. Moves all extremities. Sensation intact. IMAGING: EKG: Regular sinus rhythm, sinus tachycardia, right bundle branch block, reviewed by me. Chest x-ray: No cardiomegaly, CHF or infiltrate, reviewed by me. LABORATORY DATA: Comp metabolic profile normal except for creatinine 1.41. Blood sugar 185. Lactic acid 2.4. Urine reveals 7-10 white cells, with 7-10 red cells, no white cells, no evidence of infec tion. White count is 9.3 without left shift, hemoglobin 13.1, platelet counts 227,000. Blood and ur ine cultures have been drawn. Rocephin started in the emergency room. ADMITTING DIAGNOSES: 1. Fever with no obvious source. 2. Ulcerative colitis with no obvious flare. 3. Diabetes mellitus type 2, on oral medicines. 4. Dyslipidemia. 5. Hypertension. PLAN: We will give IV fluids overnight, repeat CBC, basic metabolic profile. Lactic acid in the mor sid. Continue Rocephin. Accu-Cheks, sliding scale, selected home medicines. I have changed this p atient from the ER's desire for inpatient admission to observation. I see no significant hospitaliza tion diagnoses at this time; however, we will wait for cultures, repeat laboratory tomorrow to make a decision. It is pertinent that the patient states he does not feel bad anywhere.
[2017-04-05] MEDS: glipiZIDE 5 MG TAB PO SCH (17:10)
[2017-04-05] MEDS: Pravastatin Sodium 20 MG TAB PO SCH (20:17)
[2017-04-05] MEDS: Hydrocortisone 10 mg Tablet PO SCH (20:18)
[2017-04-05] MEDS: Mesalamine DR 400 mg Capsule PO SCH (20:18)
[2017-04-05] MEDS: Famotidine 20 MG TAB PO SCH (20:18)
[2017-04-06 04:41] LABS: #Lymphocytes 2.1 thou/uL (1.20-3.40); #Monocytes 0.7 thou/uL (0.11-0.59); #Neutrophils 5.4 thou/uL (1.40-6.50); %Basophils 0.1 % (0.0-1.0); %Eosinophils 0.6 % (0.0-10.0); %Lymphocytes 25.1 % (21.0-51.0); %Monocytes 8.2 % (0.0-10.0); Mean Platelet Volume 7.8 fL (7.4-10.4); Red Blood Cell (RBC) Count 3.48 mill/uL (4.70-6.10); White Blood Cell (WBC) Count 8.2 thou/uL (4.8-10.8)
[2017-04-06 04:56] LABS: Anion Gap 9 mmol/L (10-20); BUN (Urea Nitrogen) 17 mg/dL (8.4-25.7); Calc. Creatinine Clearance 94 mL/min (70-130); Calcium 7.9 mg/dL (7.8-10.44); Carbon Dioxide 24 mmol/L (23-31); Chloride 107 mmol/L (98-107); Estimated GFR-MDRD 71
[2017-04-06] MEDS ORDERED: cefTRIAXone\\ROCEPHIN 1 GM in Sodium Chloride 0.9% 100 ML IVPB SCH (09:00)
[2017-04-06] MEDS ORDERED: FLU VACC TS2017-18 (>65YR) 0.5 ML SYRINGE IM ONE (09:00)
[2017-04-06] MEDS: metFORMIN 500 MG TAB PO SCH (09:08)
[2017-04-06] MEDS: Mesalamine DR 400 mg Capsule PO SCH ×3 (09:08→22:14)
[2017-04-06] MEDS: Hydrocortisone 10 mg Tablet PO SCH ×2 (09:09→22:20)
[2017-04-06] MEDS: Saccharomyces boulardii 250 MG CAP PO SCH (09:10)
[2017-04-06] MEDS: glipiZIDE 5 MG TAB PO SCH ×2 (09:10→17:21)
[2017-04-06] MEDS: Losartan Potassium 25 MG TAB PO SCH (09:10)
[2017-04-06] MEDS: Famotidine 20 MG TAB PO SCH ×2 (09:10→22:14)
[2017-04-06] MEDS: Enoxaparin Sodium 40 MG/0.4 ML SYRINGE SC SCH (09:11)
[2017-04-06] MEDS: cefTRIAXone\\ROCEPHIN 1 GM, Syringe 0.4 ML in Sterile Water 9.6 ML SLOW IVP SCH (09:32)
[2017-04-06] MEDS: Sodium Chloride 0.9% 1,000 ML IV SCH ×2 (10:52→22:22)
--- NOTE | 2017-04-06 14:55 | CON ---
DATE OF CONSULTATION: 04/06/2017 REASON FOR CONSULTATION: Fever. HISTORY OF PRESENT ILLNESS: A 76-year-old who has a history of ulcerative colitis, previously treate d with mesalamine, intermittent courses of prednisone. The last colonoscopy was in February this year and it showed some erythema. There was a plan for him to start on Humira by Dr. Gore, his gastroen terologist. During this admission, the patient had one set of blood cultures out of 2 positive for K lebsiella pneumonia with very broad susceptibility profile and he was discharged on oral levofloxacin for a few days. Approximately 1 week after discharge, he was readmitted with acute hypotension, lac tic acidosis which required vasopressor treatment and IV fluids. During that stay, he was given broa d spectrum coverage until sepsis was ruled out after cultures turned out negative. Cortisol levels w ere tested and ACTH consistent with adrenal insufficiency. He did confirm this diagnosis with an end ocrinologist in the [place] in [place]. This time he presents with new onset of fever of 102-102.9 . It appears that his intention was to stay home, but family members and EMS convinced him to come t o the hospital. The initial findings included pressure 118/61, pulse 103, respirations 14, temperature 102.4, and O2 sats were 98% room air. The patient did not appear toxic on arrival. His lung examination is report ed as having clear breath sounds. Heart exam was normal. Abdomen is reported as having been tender in the epigastric region, mildly tender. Initial laboratory data with a white cell count of 9.3, hemoglobin 13, platelets 227, 71% neutrophils . Chemistry with creatinine 1.41, which has improved now to 1.02. Liver profile normal, glucose 185 , albumin 3.4. Urinalysis was unremarkable. Thus far, 2sets of blood cultures negative and urine cu lture no growth at 24 hours and influenza A and B negative. Chest x-ray was done on admission. This showed no acute pulmonary findings. Currently, Mr. Basurto is sitting by the bedside. He is awake and oriented, a bit sluggish in his repl ies, but he is with it. He denies headaches, no visual symptoms, sore throat, odynophagia, dysphagia . A little bit of back pain which is chronic. He has noticed a cough for the past few days with jesu e sputum production. No chest pain, no abdominal pain. He has had 5-6 bowel movements which are sof t on a daily basis. No bleeding. No genitourinary symptoms, although earlier, he had a Taylor cathet er inserted and there was a little bit of dysuria following removal of the catheter. Chronic joint s ymptoms, particularly in the knees from osteoarthrosis. No neurological symptoms. PAST MEDICAL HISTORY: Includes ulcerative colitis for the past 2 years, treated with mesalamine and intermittent courses of corticosteroids, type 2 diabetes, hyperlipidemia, recent Klebsiella pneumonia bacteremia episode of uncertain primary site, 1 out of 2 sets, a history of adrenal insufficiency, p robably from iatrogenic exposure to exogenous corticosteroids for management of ulcerative colitis. PAST SURGICAL HISTORY: Includes colectomy, colostomy with subsequent reanastomosis, parathyroidectom y, eye surgery. SOCIAL HISTORY: Former smoker, quit 9 years ago. No alcoholic beverage use. MEDICATION LIST: Aspirin, Pravachol, losartan, Pepcid, glipizide, metformin, hydrocortisone for eleanor gement of adrenal insufficiency, Imodium. ALLERGIES: None. FAMILY HISTORY: Noncontributory. PHYSICAL EXAMINATION: VITAL SIGNS: T-max 99.6, blood pressure 120/65, pulse 84, respirations 18-20, O2 sat 95%. SKIN: Normal. Peripheral IV access. No Taylor catheter. No lymphadenopathy. HEENT: Ocular movements are conjugate. Sclerae white. Oral cavity with numerous missing teeth. Re maining ones with quite a bit of decay. NECK: Supple, no jugular venous distention. LUNGS: With scattered bilateral inspiratory crackles heard up to 1/3 of both right and left hemithor ax. CARDIOVASCULAR: S1, S2 with irregular rate. No murmurs. No S3. ABDOMEN: Protuberant with a hernia, but soft and not tender. No ascites. No bladder distention, no organomegaly. EXTREMITIES: Evidence of osteoarthrosis in shoulders, wrists, knees and ankles. Pulses are 1+ in do rsalis pedis. No edema. Plantar responses are flexor. No clonus. Strength in upper and lower extr emities is preserved. NEUROLOGIC: Cognitive function appears to be intact. A bit sluggish on his replies, but he is orien nicci. LABORATORY DATA: The labs have been reviewed above. ASSESSMENT: 1. Ulcerative colitis, previously on prednisone. 2. Recent admission for Klebseilla pneumonia bacteremia. 3. Adrenal insufficiency, probably from iatrogenic exposure to steroids for management of ulcerative colitis. 4. New onset of fever with abnormal lung exam and cough. DISCUSSION: Differential diagnosis includes community-acquired lower respiratory tract infection inc luding secondary to viral and the usual bacterial causes versus secondary lung manifestation of an al ternate inflammatory process, possibly in the intraabdominal compartment. The first option is the mo re likely one and we will initiate workup with that in mind. Check CT of chest with no contrast to e valuate lung parenchyma, check a respiratory virus pathogen PCR panel or respiratory virus PCR panel, submit legionella and strep pneumonia antigen in urine, consider checking for opportunistic pathogen s depending on the above results, particularly pneumocystis and certain endemic fungi such as Cryptoc occus Neoformans and histoplasma. Cytomegalovirus DNA PCR would be another assay to be submitted. M ay need a CT abdomen and pelvis depending on the findings above.
--- NOTE | 2017-04-06 14:58 | PDOC.PN ---
- Subjective Encounter Start Date: 04/06/17 Encounter Start Time: 12:25 Subjective: feels lethargic and dizzy -: c/o urinary freq and burning -: no chest pain or sob, says he had fever of 103 at home on mon & tu - Objective MAR Reviewed: Yes Vital Signs & Weight: Vital Signs (12 hours) Temp 04/06/17 11:30 98.1 F 04/06/17 10:30 98.0 F Result Diagrams: 04/06/17 03:26 04/06/17 03:26 Additional Labs: Accuchecks 04/06/17 11:30 POC Glucose 95 Phys Exam - Physical Examination HEENT: PERRLA, sclera anicteric Neck: no JVD, supple Respiratory: no wheezing, no rales Cardiovascular: RRR, no significant murmur Gastrointestinal: soft, non-tender, positive bowel sounds Musculoskeletal: no edema, pulses present Neurological: non-focal, moves all 4 limbs Psychiatric: A&O x 3 Dx/Plan (1) Sepsis Code(s): A41.9 - SEPSIS, UNSPECIFIED ORGANISM Status: Suspected Qualifiers: Sepsis type: sepsis due to unspecified organism Qualified Code(s): A41.9 - Sepsis, unspecified organism (2) H/O ulcerative colitis Code(s): Z87.19 - PERSONAL HISTORY OF OTHER DISEASES OF THE DIGESTIVE SYSTEM Status: Chronic (3) DM type 2 (diabetes mellitus, type 2) Status: Chronic Qualifiers: Diabetes mellitus complication status: with unspecified complications Diabetes mellitus terminal carman insulin use: without terminal carman use Qualified Code( s): E11.8 - Type 2 diabetes mellitus with unspecified complications (4) Dyslipidemia Code(s): E78.5 - HYPERLIPIDEMIA, UNSPECIFIED Status: Chronic (5) Obesity (BMI 30.0-34.9) Code(s): E66.9 - OBESITY, UNSPECIFIED Status: Chronic (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 Review of Systems - Medications/Allergies Allergies/Adverse Reactions: Allergies Allergy/AdvReac Type Severity Reaction Status Date / Time No Known Allergies Allergy Verified 02/14/17 21:20 Medications: Current Medications Acetaminophen (Tylenol) 650 mg PO Q4H PRN PRN Reason: Headache/Fever or Pain Aspirin (Aspirin Chewable) 162 mg PO DAILY [facility] Last Admin: 04/06/17 09:09 Dose: 162 mg Dextrose/Water (Dextrose 50%) 25 gm SLOW IVP PRN PRN PRN Reason: Hypoglycemia Diphenoxylate HCl/Atropine (Lomotil) 2 tab PO QID PRN PRN Reason: Diarrhea/Loose Stools Enoxaparin Sodium (Lovenox) 40 mg SC 0900 [facility] Last Admin: 04/06/17 09:11 Dose: 40 mg Famotidine (Pepcid) 20 mg PO BID [facility] Last Admin: 04/06/17 09:10 Dose: 20 mg Glipizide (Glucotrol) 5 mg PO BID-AC [facility] Last Admin: 04/06/17 09:10 Dose: 5 mg Glucagon (Glucagon) 1 mg IM PRN PRN PRN Reason: Hypoglycemia Hydrocortisone (Cortef) 25 mg PO BID [facility] Last Admin: 04/06/17 09:09 Dose: 25 mg Sodium Chloride (Normal Saline 0.9%) 1,000 mls @ 100 mls/hr IV .Q10H [facility] Last Admin: 04/06/17 10:52 Dose: 1,000 mls Ceftriaxone Sodium 1 gm/ (Syringe 0.4 ml/ Sterile Water) 10 mls @ 120 mls/hr SLOW IVP QAM [facility] Last Admin: 04/06/17 09:32 Dose: 10 mls Dextrose/Water (D5w) 1,000 mls @ 0 mls/hr IV .Q0M PRN; As Directed PRN Reason: Hypoglycemia Insulin Human Lispro (Humalog) 0 units SC .MILD SLIDING SCALE PRN PRN Reason: Mild Correctional Scale Losartan Potassium (Cozaar) 50 mg PO DAILY [facility] Last Admin: 04/06/17 09:10 Dose: 50 mg Mesalamine (Delzicol Dr) 800 mg PO TID [facility] Last Admin: 04/06/17 09:08 Dose: 800 mg Metformin HCl (Glucophage) 1,000 mg PO QAM-WM [facility] Last Admin: 04/06/17 09:08 Dose: 1,000 mg Ondansetron HCl (Zofran) 4 mg IVP Q6H PRN PRN Reason: Nausea/Vomiting Pravastatin Sodium (Pravachol) 20 mg PO HS [facility] Last Admin: 04/05/17 20:17 Dose: 20 mg Saccharomyces Boulardii (Florastor) 250 mg PO DAILY [facility] Last Admin: 04/06/17 09:10 Dose: 250 mg Zolpidem Tartrate (Ambien) 5 mg PO HSPRN PRN PRN Reason: Insomnia
--- NOTE | 2017-04-06 15:29 | CT ---
CT OF CHEST PERFORMED WITHOUT CONTRAST ENHANCEMENT: Date: 04/06/17 HISTORY: Previous abnormality noted within the lingula. Patient with fever. COMPARISON: 02/28/17 and 02/15/17 studies. FINDINGS: There are some atelectatic changes in both lung bases. Some pleural thickening is also noted. There are some persistent changes in the region of the lingula and within the left lower lobe adjacen t to the major fissure just directly posterior to the inferior margin of the lingula. These findings are stable as compared to the prior exam. There are calcified hilar and mediastinal nodes. There is fairly extensive coronary artery calcificat ion noted. Visualized liver parenchyma is unremarkable. Calcification associated with the wall of the gallbladde r is stable. IMPRESSION: Stable overall examination. The bibasilar and lingular interstitial lung changes are fairly similar t o the previous exam. There is no new process demonstrated. POS: [facility]
[2017-04-06 15:44] LABS: LegU Control Bar Appear? YES (CONTROL BAR); LegionellaU Control Bkground? CLEAR/WHITE (CLR/WHITE); Strp pneuU Control Background? CLEAR/WHITE (CLR/WHITE); Strp pneumo Control Bar Appear YES (CONTROL BAR)
[2017-04-06] MEDS: Pravastatin Sodium 20 MG TAB PO SCH (22:14)
[2017-04-07] MEDS: glipiZIDE 5 MG TAB PO SCH ×2 (07:36→15:52)
[2017-04-07] MEDS: Famotidine 20 MG TAB PO SCH ×2 (07:36→20:30)
[2017-04-07] MEDS: metFORMIN 500 MG TAB PO SCH (07:36)
[2017-04-07] MEDS: Mesalamine DR 400 mg Capsule PO SCH ×3 (07:37→20:30)
[2017-04-07] MEDS: Saccharomyces boulardii 250 MG CAP PO SCH (07:37)
[2017-04-07] MEDS: Hydrocortisone 10 mg Tablet PO SCH ×2 (07:38→20:28)
[2017-04-07] MEDS: Enoxaparin Sodium 40 MG/0.4 ML SYRINGE SC SCH (07:39)
[2017-04-07] MEDS: Losartan Potassium 25 MG TAB PO SCH (07:40)
[2017-04-07] MEDS: Sodium Chloride 0.9% 1,000 ML IV SCH (07:42)
[2017-04-07] MEDS: cefTRIAXone\\ROCEPHIN 1 GM, Syringe 0.4 ML in Sterile Water 9.6 ML SLOW IVP SCH (07:42)
[2017-04-07] MEDS: Diphenoxylate HCl/Atropine Tablet PO PRN (11:43)
--- NOTE | 2017-04-07 15:57 | PDOC.PN ---
- Subjective Encounter Start Date: 04/07/17 Encounter Start Time: 14:00 Subjective: no new complaints -: feels better this am -: no sob, is amb in room - Objective MAR Reviewed: Yes Vital Signs & Weight: Vital Signs (12 hours) Temp Pulse Resp BP Pulse Ox 04/07/17 08:00 98.1 F 76 22 H 91 L 04/07/17 07:00 98.1 F 76 22 H 129/68 91 L 04/07/17 06:41 98.5 F 77 18 133/75 92 L Weight Admit Weight 230 lb 6.4 oz Weight 230 lb 6.4 oz Result Diagrams: 04/06/17 03:26 04/06/17 03:26 Additional Labs: Accuchecks 04/07/17 04/07/17 04/06/17 11:56 06:03 21:02 POC Glucose 168 H 146 H 113 H 04/06/17 16:24 POC Glucose 120 H Phys Exam - Physical Examination HEENT: PERRLA, moist MMs Neck: no JVD, supple Respiratory: no wheezing, no rales Cardiovascular: RRR, no significant murmur Gastrointestinal: soft, non-tender, no distention, positive bowel sounds Musculoskeletal: no edema, pulses present Neurological: non-focal, moves all 4 limbs Psychiatric: A&O x 3 Dx/Plan (1) Sepsis Code(s): A41.9 - SEPSIS, UNSPECIFIED ORGANISM Status: Suspected Qualifiers: Sepsis type: sepsis due to unspecified organism Qualified Code(s): A41.9 - Sepsis, unspecified organism (2) H/O ulcerative colitis Code(s): Z87.19 - PERSONAL HISTORY OF OTHER DISEASES OF THE DIGESTIVE SYSTEM Status: Chronic (3) DM type 2 (diabetes mellitus, type 2) Status: Chronic Qualifiers: Diabetes mellitus complication status: with unspecified complications Diabetes mellitus penitentiary insulin use: without penitentiary use Qualified Code( s): E11.8 - Type 2 diabetes mellitus with unspecified complications (4) Dyslipidemia Code(s): E78.5 - HYPERLIPIDEMIA, UNSPECIFIED Status: Chronic (5) Obesity (BMI 30.0-34.9) Code(s): E66.9 - OBESITY, UNSPECIFIED Status: Chronic (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 Review of Systems - Medications/Allergies Allergies/Adverse Reactions: Allergies Allergy/AdvReac Type Severity Reaction Status Date / Time No Known Allergies Allergy Verified 02/14/17 21:20 Medications: Current Medications Acetaminophen (Tylenol) 650 mg PO Q4H PRN PRN Reason: Headache/Fever or Pain Aspirin (Aspirin Chewable) 162 mg PO DAILY [facility] Last Admin: 04/07/17 07:37 Dose: 162 mg Dextrose/Water (Dextrose 50%) 25 gm SLOW IVP PRN PRN PRN Reason: Hypoglycemia Diphenoxylate HCl/Atropine (Lomotil) 2 tab PO QID PRN PRN Reason: Diarrhea/Loose Stools Last Admin: 04/07/17 11:43 Dose: 2 tab Enoxaparin Sodium (Lovenox) 40 mg SC 0900 [facility] Last Admin: 04/07/17 07:39 Dose: 40 mg Famotidine (Pepcid) 20 mg PO BID [facility] Last Admin: 04/07/17 07:36 Dose: 20 mg Glipizide (Glucotrol) 5 mg PO BID-AC [facility] Last Admin: 04/07/17 15:52 Dose: 5 mg Glucagon (Glucagon) 1 mg IM PRN PRN PRN Reason: Hypoglycemia Hydrocortisone (Cortef) 25 mg PO BID [facility] Last Admin: 04/07/17 07:38 Dose: 25 mg Ceftriaxone Sodium 1 gm/ (Syringe 0.4 ml/ Sterile Water) 10 mls @ 120 mls/hr SLOW IVP QAM [facility] Last Admin: 04/07/17 07:42 Dose: 10 mls Dextrose/Water (D5w) 1,000 mls @ 0 mls/hr IV .Q0M PRN; As Directed PRN Reason: Hypoglycemia Insulin Human Lispro (Humalog) 0 units SC .MILD SLIDING SCALE PRN PRN Reason: Mild Correctional Scale Losartan Potassium (Cozaar) 50 mg PO DAILY [facility] Last Admin: 04/07/17 07:40 Dose: 50 mg Mesalamine (Delzicol Dr) 800 mg PO TID [facility] Last Admin: 04/07/17 15:51 Dose: 800 mg Metformin HCl (Glucophage) 1,000 mg PO QAM-[facility] Last Admin: 04/07/17 07:36 Dose: 1,000 mg Ondansetron HCl (Zofran) 4 mg IVP Q6H PRN PRN Reason: Nausea/Vomiting Pravastatin Sodium (Pravachol) 20 mg PO [facility] Last Admin: 04/06/17 22:14 Dose: 20 mg Saccharomyces Boulardii (Florastor) 250 mg PO DAILY [facility] Last Admin: 04/07/17 07:37 Dose: 250 mg Zolpidem Tartrate (Ambien) 5 mg PO HSPRN PRN PRN Reason: Insomnia
[2017-04-07] MEDS: Pravastatin Sodium 20 MG TAB PO SCH (20:30)
[2017-04-08] MEDS: HumaLOG 300 UNITS/3 ML VIAL SC PRN (06:28)
[2017-04-08 09:39] LABS: #Eosinphils 0.1 thou/uL (0.0-0.7); #Lymphocytes 3.6 thou/uL (1.20-3.40); #Monocytes 0.9 thou/uL (0.11-0.59); #Neutrophils 5.6 thou/uL (1.40-6.50); %Basophils 0.1 % (0.0-1.0); %Eosinophils 0.5 % (0.0-10.0); %Lymphocytes 35.5 % (21.0-51.0); %Monocytes 8.7 % (0.0-10.0); Mean Platelet Volume 7.2 fL (7.4-10.4); Red Blood Cell (RBC) Count 3.78 mill/uL (4.70-6.10); White Blood Cell (WBC) Count 10.1 thou/uL (4.8-10.8)
[2017-04-08 09:59] LABS: ALT (SGPT) 19 U/L (8-55); AST (SGOT) 22 U/L (5-34); Alkaline Phosphatase 47 U/L (40-150); Anion Gap 11 mmol/L (10-20); BUN (Urea Nitrogen) 12 mg/dL (8.4-25.7); Bilirubin, Total 0.6 mg/dL (0.2-1.2); Calc. Creatinine Clearance 88 mL/min (70-130); Carbon Dioxide 26 mmol/L (23-31); Chloride 106 mmol/L (98-107); Estimated GFR-MDRD 66; Globulin 3.8 g/dL (2.4-3.5); Protein, Total 7.1 g/dL (5.8-8.1)
[2017-04-08] MEDS: Mesalamine DR 400 mg Capsule PO SCH ×3 (10:19→21:16)
[2017-04-08] MEDS: Saccharomyces boulardii 250 MG CAP PO SCH (10:19)
[2017-04-08] MEDS: glipiZIDE 5 MG TAB PO SCH ×2 (10:19→17:53)
[2017-04-08] MEDS: Diphenoxylate HCl/Atropine Tablet PO PRN (10:19)
[2017-04-08] MEDS: metFORMIN 500 MG TAB PO SCH (10:20)
[2017-04-08] MEDS: Famotidine 20 MG TAB PO SCH ×2 (10:20→21:16)
[2017-04-08] MEDS: Losartan Potassium 25 MG TAB PO SCH (10:20)
[2017-04-08] MEDS: cefTRIAXone\\ROCEPHIN 1 GM, Syringe 0.4 ML in Sterile Water 9.6 ML SLOW IVP SCH (10:24)
[2017-04-08] MEDS: Enoxaparin Sodium 40 MG/0.4 ML SYRINGE SC SCH (10:26)
--- NOTE | 2017-04-08 14:51 | PDOC.PN ---
- Subjective Encounter Start Date: 04/08/17 Encounter Start Time: 13:20 Subjective: had 3 loose bm's from am -: no nausea - Objective MAR Reviewed: Yes Vital Signs & Weight: Vital Signs (12 hours) Temp Pulse Resp BP Pulse Ox 04/08/17 08:00 98.5 F 84 18 176/74 H 95 Weight Admit Weight 230 lb 6.4 oz Weight 230 lb 6.4 oz Result Diagrams: 04/08/17 09:19 04/08/17 09:19 Additional Labs: Accuchecks 04/08/17 04/08/17 04/07/17 12:25 04:43 20:29 POC Glucose 81 197 H 127 H 04/07/17 15:58 POC Glucose 144 H Phys Exam - Physical Examination HEENT: PERRLA, moist MMs Neck: no JVD, supple Respiratory: no wheezing, no rales Cardiovascular: RRR, no significant murmur Gastrointestinal: soft, non-tender, no distention, positive bowel sounds Musculoskeletal: no edema, pulses present Neurological: non-focal, moves all 4 limbs Psychiatric: A&O x 3 Dx/Plan (1) C. difficile colitis Status: Acute (2) Sepsis Code(s): A41.9 - SEPSIS, UNSPECIFIED ORGANISM Status: Suspected Comment: likely due to c.dif colitis (3) H/O ulcerative colitis Code(s): Z87.19 - PERSONAL HISTORY OF OTHER DISEASES OF THE DIGESTIVE SYSTEM Status: Chronic (4) DM type 2 (diabetes mellitus, type 2) Status: Chronic Qualifiers: Diabetes mellitus complication status: with unspecified complications Diabetes mellitus shelter insulin use: without shelter use Qualified Code( s): E11.8 - Type 2 diabetes mellitus with unspecified complications (5) Dyslipidemia Code(s): E78.5 - HYPERLIPIDEMIA, UNSPECIFIED Status: Chronic (6) Obesity (BMI 30.0-34.9) Code(s): E66.9 - OBESITY, UNSPECIFIED Status: Chronic (7) 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 Review of Systems - Medications/Allergies Allergies/Adverse Reactions: Allergies Allergy/AdvReac Type Severity Reaction Status Date / Time No Known Allergies Allergy Verified 02/14/17 21:20 Medications: Current Medications Acetaminophen (Tylenol) 650 mg PO Q4H PRN PRN Reason: Headache/Fever or Pain Aspirin (Aspirin Chewable) 162 mg PO DAILY [facility] Last Admin: 04/08/17 10:21 Dose: 162 mg Dextrose/Water (Dextrose 50%) 25 gm SLOW IVP PRN PRN PRN Reason: Hypoglycemia Diphenoxylate HCl/Atropine (Lomotil) 2 tab PO QID PRN PRN Reason: Diarrhea/Loose Stools Last Admin: 04/08/17 10:19 Dose: 2 tab Enoxaparin Sodium (Lovenox) 40 mg SC 0900 [facility] Last Admin: 04/08/17 10:26 Dose: 40 mg Famotidine (Pepcid) 20 mg PO BID [facility] Last Admin: 04/08/17 10:20 Dose: 20 mg Glipizide (Glucotrol) 5 mg PO BID-[facility] Last Admin: 04/08/17 10:19 Dose: 5 mg Glucagon (Glucagon) 1 mg IM PRN PRN PRN Reason: Hypoglycemia Dextrose/Water (D5w) 1,000 mls @ 0 mls/hr IV .Q0M PRN; As Directed PRN Reason: Hypoglycemia Insulin Human Lispro (Humalog) 0 units SC .MILD SLIDING SCALE PRN PRN Reason: Mild Correctional Scale Last Admin: 04/08/17 06:28 Dose: 2 unit Losartan Potassium (Cozaar) 50 mg PO DAILY [facility] Last Admin: 04/08/17 10:20 Dose: 50 mg Mesalamine (Delzicol Dr) 800 mg PO TID [facility] Last Admin: 04/08/17 10:19 Dose: 800 mg Metformin HCl (Glucophage) 1,000 mg PO QAM-[facility] Last Admin: 04/08/17 10:20 Dose: 1,000 mg Ondansetron HCl (Zofran) 4 mg IVP Q6H PRN PRN Reason: Nausea/Vomiting Pravastatin Sodium (Pravachol) 20 mg PO HS [facility] Last Admin: 04/07/17 20:30 Dose: 20 mg Saccharomyces Boulardii (Florastor) 250 mg PO DAILY [facility] Last Admin: 04/08/17 10:19 Dose: 250 mg Vancomycin HCl (First Vancomycin) 125 mg PO QID [facility] Zolpidem Tartrate (Ambien) 5 mg PO HSPRN PRN PRN Reason: Insomnia
[2017-04-08] MEDS ORDERED: Hydrocortisone Sod Succ/PF 100 mg/2 ml Vial IVP SCH (17:00)
[2017-04-08] MEDS ORDERED: ALPRAZolam 1 MG TAB PO SCH (17:30)
[2017-04-08] MEDS ORDERED: Hydrocortisone 10 mg Tablet PO SCH (17:30)
[2017-04-08] MEDS: Vancomycin HCl 25 MG/ML Oral PO SCH ×2 (17:52→21:17)
[2017-04-08] MEDS: Pravastatin Sodium 20 MG TAB PO SCH (21:17)
[2017-04-09 05:52] LABS: #Basophils 0.1 thou/uL (0.0-0.2); #Lymphocytes 1.6 thou/uL (1.20-3.40); #Monocytes 0.5 thou/uL (0.11-0.59); #Neutrophils 3.9 thou/uL (1.40-6.50); %Basophils 1.3 % (0.0-1.0); %Eosinophils 0.6 % (0.0-10.0); %Lymphocytes 26.6 % (21.0-51.0); %Monocytes 7.7 % (0.0-10.0); Hematocrit 33.2 % (42.0-52.0); Mean Platelet Volume 7.4 fL (7.4-10.4); Red Blood Cell (RBC) Count 3.49 mill/uL (4.70-6.10); White Blood Cell (WBC) Count 6.1 thou/uL (4.8-10.8)
[2017-04-09] MEDS: HumaLOG 300 UNITS/3 ML VIAL SC PRN (06:01)
[2017-04-09 06:04] LABS: Anion Gap 11 mmol/L (10-20); BUN (Urea Nitrogen) 13 mg/dL (8.4-25.7); Calc. Creatinine Clearance 105 mL/min (70-130); Calcium 8.8 mg/dL (7.8-10.44); Carbon Dioxide 24 mmol/L (23-31); Chloride 106 mmol/L (98-107); Estimated GFR-MDRD 81
[2017-04-09] MEDS: metFORMIN 500 MG TAB PO SCH (09:32)
[2017-04-09] MEDS: glipiZIDE 5 MG TAB PO SCH ×2 (09:32→17:50)
[2017-04-09] MEDS: Losartan Potassium 25 MG TAB PO SCH (09:33)
[2017-04-09] MEDS: Famotidine 20 MG TAB PO SCH ×2 (09:33→20:16)
[2017-04-09] MEDS: Saccharomyces boulardii 250 MG CAP PO SCH (09:34)
[2017-04-09] MEDS: Mesalamine DR 400 mg Capsule PO SCH ×3 (09:34→20:16)
[2017-04-09] MEDS: Hydrocortisone 10 mg Tablet PO SCH ×2 (09:34→20:17)
[2017-04-09] MEDS: Vancomycin HCl 25 MG/ML Oral PO SCH ×4 (09:35→20:18)
[2017-04-09] MEDS: Enoxaparin Sodium 40 MG/0.4 ML SYRINGE SC SCH (09:36)
--- NOTE | 2017-04-09 14:46 | PDOC.PN ---
- Subjective Encounter Start Date: 04/09/17 Encounter Start Time: 14:00 Subjective: feels weak -: no sob or specific complaints -: still has diarrhea but freq is masked with him taking lomotil - Objective MAR Reviewed: Yes Vital Signs & Weight: Vital Signs (12 hours) Temp Pulse Resp BP Pulse Ox 04/09/17 08:00 97.4 F L 79 18 151/82 H 96 Weight Admit Weight 230 lb 6.4 oz Weight 230 lb 6.4 oz Result Diagrams: 04/09/17 04:54 04/09/17 04:54 Additional Labs: Accuchecks 04/09/17 04/09/17 04/09/17 11:40 05:48 02:40 POC Glucose 117 H 241 H 270 H 04/08/17 04/08/17 04/08/17 20:39 18:42 16:11 POC Glucose 157 H 100 64 L Phys Exam - Physical Examination HEENT: PERRLA, moist MMs Neck: no JVD, supple Respiratory: no wheezing, no rales Cardiovascular: RRR, no significant murmur Gastrointestinal: soft, non-tender, positive bowel sounds Musculoskeletal: no edema, pulses present Neurological: non-focal, moves all 4 limbs Psychiatric: A&O x 3 Dx/Plan (1) C. difficile colitis Status: Acute (2) Sepsis Code(s): A41.9 - SEPSIS, UNSPECIFIED ORGANISM Status: Suspected Comment: likely due to c.dif colitis (3) H/O ulcerative colitis Code(s): Z87.19 - PERSONAL HISTORY OF OTHER DISEASES OF THE DIGESTIVE SYSTEM Status: Chronic (4) DM type 2 (diabetes mellitus, type 2) Status: Chronic Qualifiers: Diabetes mellitus complication status: with unspecified complications Diabetes mellitus skilled nursing insulin use: without skilled nursing use Qualified Code( s): E11.8 - Type 2 diabetes mellitus with unspecified complications (5) Dyslipidemia Code(s): E78.5 - HYPERLIPIDEMIA, UNSPECIFIED Status: Chronic (6) Obesity (BMI 30.0-34.9) Code(s): E66.9 - OBESITY, UNSPECIFIED Status: Chronic (7) 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 Not sure if he is compliant with meds at home -: Old oral vanc is still in his refrigerator per patient. * . dc plan in am if stable. Is on oral mesalamine and monthly humira infusions for UC vanc po qid for cdif d/w daughter at bedside Review of Systems - Medications/Allergies Allergies/Adverse Reactions: Allergies Allergy/AdvReac Type Severity Reaction Status Date / Time No Known Allergies Allergy Verified 02/14/17 21:20 Medications: Current Medications Acetaminophen (Tylenol) 650 mg PO Q4H PRN PRN Reason: Headache/Fever or Pain Aspirin (Aspirin Chewable) 162 mg PO DAILY [facility] Last Admin: 04/09/17 09:34 Dose: 162 mg Dextrose/Water (Dextrose 50%) 25 gm SLOW IVP PRN PRN PRN Reason: Hypoglycemia Diphenoxylate HCl/Atropine (Lomotil) 2 tab PO QID PRN PRN Reason: Diarrhea/Loose Stools Last Admin: 04/08/17 10:19 Dose: 2 tab Enoxaparin Sodium (Lovenox) 40 mg SC 0900 [facility] Last Admin: 04/09/17 09:36 Dose: 40 mg Famotidine (Pepcid) 20 mg PO BID [facility] Last Admin: 04/09/17 09:33 Dose: 20 mg Glipizide (Glucotrol) 5 mg PO BID-AC [facility] Last Admin: 04/09/17 09:32 Dose: 5 mg Glucagon (Glucagon) 1 mg IM PRN PRN PRN Reason: Hypoglycemia Hydrocortisone (Cortef) 25 mg PO BID [facility] Last Admin: 04/09/17 09:34 Dose: 25 mg Dextrose/Water (D5w) 1,000 mls @ 0 mls/hr IV .Q0M PRN; As Directed PRN Reason: Hypoglycemia Insulin Human Lispro (Humalog) 0 units SC .MILD SLIDING SCALE PRN PRN Reason: Mild Correctional Scale Last Admin: 04/09/17 06:01 Dose: 4 unit Losartan Potassium (Cozaar) 50 mg PO DAILY [facility] Last Admin: 04/09/17 09:33 Dose: 50 mg Mesalamine (Delzicol Dr) 800 mg PO TID [facility] Last Admin: 04/09/17 09:34 Dose: 800 mg Metformin HCl (Glucophage) 1,000 mg PO QAM-WM [facility] Last Admin: 04/09/17 09:32 Dose: 1,000 mg Ondansetron HCl (Zofran) 4 mg IVP Q6H PRN PRN Reason: Nausea/Vomiting Pravastatin Sodium (Pravachol) 20 mg PO HS [facility] Last Admin: 04/08/17 21:17 Dose: 20 mg Saccharomyces Boulardii (Florastor) 250 mg PO DAILY [facility] Last Admin: 04/09/17 09:34 Dose: 250 mg Vancomycin HCl (First Vancomycin) 125 mg PO QID [facility] Last Admin: 04/09/17 14:19 Dose: 125 mg Zolpidem Tartrate (Ambien) 5 mg PO HSPRN PRN PRN Reason: Insomnia
[2017-04-09] MEDS: Pravastatin Sodium 20 MG TAB PO SCH (20:17)
[2017-04-10 08:20] LABS: #Eosinphils 0.1 thou/uL (0.0-0.7); #Monocytes 0.8 thou/uL (0.11-0.59); #Neutrophils 6.8 thou/uL (1.40-6.50); %Basophils 0.3 % (0.0-1.0); %Eosinophils 0.6 % (0.0-10.0); %Lymphocytes 33.8 % (21.0-51.0); %Monocytes 7.2 % (0.0-10.0); Hematocrit 37.7 % (42.0-52.0); Mean Platelet Volume 7.4 fL (7.4-10.4); Red Blood Cell (RBC) Count 3.97 mill/uL (4.70-6.10); White Blood Cell (WBC) Count 11.7 thou/uL (4.8-10.8)
[2017-04-10 08:33] LABS: Anion Gap 10 mmol/L (10-20); BUN (Urea Nitrogen) 16 mg/dL (8.4-25.7); Calc. Creatinine Clearance 96 mL/min (70-130); Calcium 9.3 mg/dL (7.8-10.44); Carbon Dioxide 28 mmol/L (23-31); Chloride 104 mmol/L (98-107); Estimated GFR-MDRD 73
[2017-04-10] MEDS: Hydrocortisone 10 mg Tablet PO SCH ×2 (09:03→22:06)
[2017-04-10] MEDS: Mesalamine DR 400 mg Capsule PO SCH ×3 (09:03→22:08)
[2017-04-10] MEDS: Saccharomyces boulardii 250 MG CAP PO SCH (09:04)
[2017-04-10] MEDS: Losartan Potassium 25 MG TAB PO SCH (09:04)
[2017-04-10] MEDS: Enoxaparin Sodium 40 MG/0.4 ML SYRINGE SC SCH (09:05)
[2017-04-10] MEDS: Famotidine 20 MG TAB PO SCH ×2 (09:05→22:07)
[2017-04-10] MEDS: glipiZIDE 5 MG TAB PO SCH ×2 (09:05→16:44)
[2017-04-10] MEDS: metFORMIN 500 MG TAB PO SCH (09:05)
[2017-04-10] MEDS: Vancomycin HCl 25 MG/ML Oral PO SCH ×4 (09:08→22:06)
--- NOTE | 2017-04-10 13:30 | PDOC.PN ---
- Subjective Encounter Start Date: 04/10/17 Encounter Start Time: 13:00 Subjective: has loose stools around 2 from this am, feels weak -: had around 5 last night per patient -: no nausea, is tolerating oral diet - Objective MAR Reviewed: Yes Vital Signs & Weight: Vital Signs (12 hours) Temp Pulse Resp BP Pulse Ox 04/10/17 08:48 98.3 F 81 18 157/84 H 95 04/10/17 08:00 98.3 F 81 18 Weight Admit Weight 230 lb 6.4 oz Weight 230 lb 6.4 oz I&O: 04/09/17 04/10/17 04/11/17 06:59 06:59 06:59 Intake Total 600 Balance 600 Result Diagrams: 04/10/17 08:08 04/10/17 08:08 Additional Labs: Accuchecks 04/10/17 04/10/17 04/09/17 12:27 05:23 20:13 POC Glucose 89 181 H 196 H 04/09/17 16:09 POC Glucose 174 H Phys Exam - Physical Examination HEENT: PERRLA, sclera anicteric Neck: no JVD, supple Respiratory: no wheezing, no rales Cardiovascular: RRR, no significant murmur Gastrointestinal: soft, non-tender, no distention, positive bowel sounds no rigidity or guarding Musculoskeletal: no edema, pulses present Neurological: non-focal, moves all 4 limbs Dx/Plan (1) C. difficile colitis Status: Acute (2) Sepsis Code(s): A41.9 - SEPSIS, UNSPECIFIED ORGANISM Status: Suspected Comment: likely due to c.dif colitis with temp of 103 at home (3) H/O ulcerative colitis Code(s): Z87.19 - PERSONAL HISTORY OF OTHER DISEASES OF THE DIGESTIVE SYSTEM Status: Chronic (4) DM type 2 (diabetes mellitus, type 2) Status: Chronic Qualifiers: Diabetes mellitus complication status: with unspecified complications Diabetes mellitus termite control servicer insulin use: without termite control servicer use Qualified Code( s): E11.8 - Type 2 diabetes mellitus with unspecified complications (5) Dyslipidemia Code(s): E78.5 - HYPERLIPIDEMIA, UNSPECIFIED Status: Chronic (6) Obesity (BMI 30.0-34.9) Code(s): E66.9 - OBESITY, UNSPECIFIED Status: Chronic (7) Porcelain gallbladder Code(s): K82.8 - OTHER SPECIFIED DISEASES OF GALLBLADDER Status: Chronic - Plan Pt says he normally has 5-6 loose stools with UC and takes lomotil -: now he says the freq is not bad but its exhausting after each bm/large wate -: no blood in stool. Will consult his GI for help -: is on oral vanc, this is the first episode of cdiff per [facility] records -: is amb in room. Continue his steroids for ?adrenal crisis(likely steroid wd * . Review of Systems - Medications/Allergies Allergies/Adverse Reactions: Allergies Allergy/AdvReac Type Severity Reaction Status Date / Time No Known Allergies Allergy Verified 02/14/17 21:20 Medications: Current Medications Acetaminophen (Tylenol) 650 mg PO Q4H PRN PRN Reason: Headache/Fever or Pain Aspirin (Aspirin Chewable) 162 mg PO DAILY [facility] Last Admin: 04/10/17 09:05 Dose: 162 mg Dextrose/Water (Dextrose 50%) 25 gm SLOW IVP PRN PRN PRN Reason: Hypoglycemia Enoxaparin Sodium (Lovenox) 40 mg SC 0900 [facility] Last Admin: 04/10/17 09:05 Dose: 40 mg Famotidine (Pepcid) 20 mg PO BID [facility] Last Admin: 04/10/17 09:05 Dose: 20 mg Glipizide (Glucotrol) 5 mg PO BID-AC [facility] Last Admin: 04/10/17 09:05 Dose: 5 mg Glucagon (Glucagon) 1 mg IM PRN PRN PRN Reason: Hypoglycemia Hydrocortisone (Cortef) 25 mg PO BID [facility] Last Admin: 04/10/17 09:03 Dose: 25 mg Dextrose/Water (D5w) 1,000 mls @ 0 mls/hr IV .Q0M PRN; As Directed PRN Reason: Hypoglycemia Insulin Human Lispro (Humalog) 0 units SC .MILD SLIDING SCALE PRN PRN Reason: Mild Correctional Scale Last Admin: 04/09/17 06:01 Dose: 4 unit Losartan Potassium (Cozaar) 50 mg PO DAILY [facility] Last Admin: 04/10/17 09:04 Dose: 50 mg Mesalamine (Delzicol Dr) 800 mg PO TID [facility] Last Admin: 04/10/17 09:03 Dose: 800 mg Metformin HCl (Glucophage) 1,000 mg PO QAM-WM [facility] Last Admin: 04/10/17 09:05 Dose: 1,000 mg Ondansetron HCl (Zofran) 4 mg IVP Q6H PRN PRN Reason: Nausea/Vomiting Pravastatin Sodium (Pravachol) 20 mg PO HS [facility] Last Admin: 04/09/17 20:17 Dose: 20 mg Saccharomyces Boulardii (Florastor) 250 mg PO DAILY [facility] Last Admin: 04/10/17 09:04 Dose: 250 mg Vancomycin HCl (First Vancomycin) 125 mg PO QID [facility] Last Admin: 04/10/17 09:08 Dose: 125 mg Zolpidem Tartrate (Ambien) 5 mg PO HSPRN PRN PRN Reason: Insomnia
--- NOTE | 2017-04-10 17:26 | PRG ---
DATE OF SERVICE: 04/10/2017 SUBJECTIVE: Sherine is still having liquid stool. He had a positive C. diff nucleic acid amplification test and has been started on vancomycin. Otherwise, he feels ready to go home. OBJECTIVE: VITAL SIGNS: He has been afebrile. LUNGS: Clear. ABDOMEN: Somewhat distended, but not tender. EXTREMITIES: Moves all extremities equally. LABORATORY DATA: White cell count 11.7, hemoglobin 12.4, platelets 457. Chemistry is normal. Legionella haemophilus strep pneumoniae antigen negative. The C. diff nucleic acid amplification test was positive. The CT of chest showed some bibasilar lingular interstitial lung changes. ASSESSMENT AND DISCUSSION: Ulcerative colitis, previously on prednisone, recent admission for Klebsiella pneumoniae, bacteremia, treated with levofloxacin, adrenal insufficiency, probably from iatrogenic treatment or exposure to steroids and new onset of fever, abnormal lung exam and cough. The patient is having diarrhea now and this test result could represent colonization due to the increased sensitivity of the nucleic acid amplification test rather than toxin/antigen tests. We will submit a toxin antigen test, talked to the lab about it and still the primary reason for admission was the fever plus the respiratory symptoms, which have resolved. I do not think that the Clostridium difficile is responsible for the fever and symptoms that led to admission. He is having some elevation of the white cell count, but he is on the higher dose of Solu-Cortef which could be associated with it. Since he is colonized by C. diff, he will be at risk of developing full blown colitis in view of exposure to antimicrobial therapy and even if antige/toxin are negative , would still d/c with a few days of oral vancomycin. [facility]
[2017-04-10] MEDS: Pravastatin Sodium 20 MG TAB PO SCH (22:06)
--- NOTE | 2017-04-11 01:55 | CON ---
DATE OF CONSULTATION: 04/10/2017 CHIEF COMPLAINT: Weakness. HISTORY OF PRESENT ILLNESS: Mr. Basurto is a 76-year-old man who was admitted with fever. He has immu ne suppressed with steroids. He started Humira the first loading dose of 160 mg 2 weeks ago. He has been diagnosed with adrenal insufficiency and has had some infectious complications over the last co uple months including Klebsiella, bacteremia and possible pneumonia now. He has been on prednisone f or ulcerative colitis, associated with adrenal insufficiency, has had episodes of severe weakness whe n his steroid doses decreased. He tested positive for C. diff antigen and has been started on vancom ycin for that. He has had diarrhea on and off over the last several months; however, feels like the diarrhea has been fairly stable over the last couple of weeks. He actually felt much better from a d iarrhea standpoint after starting the Humira; however, over the last few days he is having numerous l iquidy stools per day. He has had no blood in the stool. No abdominal pain, no nausea or vomiting. Yesterday, he was sitting up, feeling well, but he is lost his IV access and refused replacement of the IV and he was delayed on his steroid dose and then felt very weak and cold, until he was able to take course of oral steroids. PAST MEDICAL HISTORY: Chronic ulcerative proctitis, diabetes mellitus type 2, stroke associated with antiphospholipid syndrome, hypertension, hyperlipidemia, osteoarthritis. New diagnosis of adrenal i nsufficiency, most recent colonoscopy was 02/22/2017, which showed severe diffuse inflammation throug hout the rectum and the remaining colon. He has a very short segment of colon remaining and has an i leocolonic anastomosis. PAST SURGICAL HISTORY: Colon resection for prior diverticulitis, parathyroidectomy, and incisional h ernia repair. FAMILY HISTORY: Negative for GI malignancy. SOCIAL HISTORY: No alcohol, tobacco or drugs. ALLERGIES: GLYBURIDE, TRADJENTA. CURRENT MEDICATIONS: Include vancomycin, Florastor, pravastatin, mesalamine, losartan, hydrocortison e 25 mg p.o. b.i.d., glipizide, famotidine, enoxaparin, and aspirin. REVIEW OF SYSTEMS: Negative x10 systems reviewed except as stated in the history of present illness. PHYSICAL EXAMINATION: VITAL SIGNS: Temperature is 98.3, pulse 81, blood pressure 157/84. GENERAL: He is not as robust and interactive as he has been in the past. He is oriented x3 and answ ers questions appropriately, but his daughter does help. HEENT: His eyes have no scleral icterus. Oropharynx is clear, without lesions. NECK: No cervical or supraclavicular lymphadenopathy. LUNGS: Clear to auscultation bilaterally. HEART: Regular rate and rhythm. ABDOMEN: Soft, nontender, nondistended. Bowel sounds are present. EXTREMITIES: No lower extremity edema. LABORATORY DATA: White blood cell count 11.7, hemoglobin 12.4, platelets 457. Creatinine 1.0, bilir ubin 0.6, AST 22, ALT 19, alkaline phosphatase 47. IMPRESSION: 1. Adrenal insufficiency and recurrent fever. He has been treated for sepsis with Klebsiella. He n ow has lung infiltrates noted. 2. Chronic ulcerative colitis. He has had 60 cm of his colon resected. He has markedly diminished absorptive capacity of his colon, but in addition that he has acutely inflamed diffuse proctitis and colitis of the remaining colon noted by a colonoscopy in mid 02/2017. He tested positive for C. diff antigen and toxigenic C. diff by PCR; however, it is unclear if this actually represents a true infe ction as the toxin itself does not appear to be tested for with the new assay that the hospital was u sing currently. Given his immune suppression and already complicated history of inflammatory bowel d isease, I would follow through with treatment of the C. diff; however, again unsure if this represent s colonization or true infection. RECOMMENDATIONS: 1. He has been on Humira. His first loading dose of 160 mg was given 2 weeks ago and he is now due for second loading dose of 80 mg. As long as there appears to be an unclear infectious source and po ssible C. difficile infection. We will hold off the next loading dose of Humira for now. He has imp roved from a diarrhea standpoint, when he was able to take loperamide, however, again I would wait tr eatment of the C. diff for at least a week before restarting the loperamide. Given his degree of jl rrhea symptoms, I would like to try to restart this due to his significant improvement on it previous ly. 2. Otherwise, he is on no specific treatment for the inflammatory bowel disease currently. He is on hydrocortisone for adrenal insufficiency. Perhaps, we will be able to restart the Humira and after he has completed a week of vancomycin for the C. diff and if he has no further fevers and no other si gns of infection otherwise. I will discuss this with Dr. Jordan.
[2017-04-11 06:19] LABS: #Eosinphils 0.1 thou/uL (0.0-0.7); #Lymphocytes 2.8 thou/uL (1.20-3.40); #Monocytes 0.7 thou/uL (0.11-0.59); #Neutrophils 6.1 thou/uL (1.40-6.50); %Basophils 0.3 % (0.0-1.0); %Eosinophils 1.5 % (0.0-10.0); %Lymphocytes 29.1 % (21.0-51.0); %Monocytes 6.9 % (0.0-10.0); Hematocrit 35.7 % (42.0-52.0); Mean Platelet Volume 7.5 fL (7.4-10.4); Red Blood Cell (RBC) Count 3.74 mill/uL (4.70-6.10); White Blood Cell (WBC) Count 9.7 thou/uL (4.8-10.8)
[2017-04-11 06:31] LABS: ALT (SGPT) 22 U/L (8-55); AST (SGOT) 18 U/L (5-34); Alkaline Phosphatase 49 U/L (40-150); Anion Gap 14 mmol/L (10-20); BUN (Urea Nitrogen) 16 mg/dL (8.4-25.7); Bilirubin, Total 0.5 mg/dL (0.2-1.2); Calc. Creatinine Clearance 104 mL/min (70-130); Calcium 9.2 mg/dL (7.8-10.44); Carbon Dioxide 24 mmol/L (23-31); Chloride 104 mmol/L (98-107); Estimated GFR-MDRD 80; Globulin 3.9 g/dL (2.4-3.5); Protein, Total 7.1 g/dL (5.8-8.1)
[2017-04-11 08:22] VITALS: BP 156/75; TEMP 98.1
[2017-04-11] MEDS: Hydrocortisone 10 mg Tablet PO SCH (08:46)
[2017-04-11] MEDS: Vancomycin HCl 25 MG/ML Oral PO SCH ×2 (08:46→12:53)
[2017-04-11] MEDS: glipiZIDE 5 MG TAB PO SCH (08:47)
[2017-04-11] MEDS: metFORMIN 500 MG TAB PO SCH (08:47)
[2017-04-11] MEDS: Famotidine 20 MG TAB PO SCH (08:48)
[2017-04-11] MEDS: Saccharomyces boulardii 250 MG CAP PO SCH (08:49)
[2017-04-11] MEDS: Mesalamine DR 400 mg Capsule PO SCH (08:49)
[2017-04-11] MEDS: Enoxaparin Sodium 40 MG/0.4 ML SYRINGE SC SCH (08:49)
[2017-04-11] MEDS: Losartan Potassium 25 MG TAB PO SCH (08:51)
--- NOTE | 2017-04-11 11:57 | PDOC.PN ---
- Subjective Encounter Start Date: 04/11/17 Encounter Start Time: 08:45 Subjective: feels good, no abd pain, nausea or expectoration -: is amb in room, ate his breakfast, is currently taking his meds - Objective MAR Reviewed: Yes Vital Signs & Weight: Vital Signs (12 hours) Temp Pulse Resp BP Pulse Ox 04/11/17 09:00 98.1 F 77 16 77 L 04/11/17 07:45 98.1 F 77 16 156/75 H 92 L Weight Admit Weight 230 lb 6.4 oz Weight 230 lb 6.4 oz I&O: 04/10/17 04/11/17 04/12/17 06:59 06:59 06:59 Intake Total 600 1500 Balance 600 1500 Result Diagrams: 04/11/17 04:40 04/11/17 04:40 Additional Labs: Accuchecks 04/11/17 04/10/17 04/10/17 05:31 21:05 16:31 POC Glucose 174 H 157 H 163 H 04/10/17 12:27 POC Glucose 89 Phys Exam - Physical Examination HEENT: PERRLA, moist MMs Neck: no JVD, supple Respiratory: no wheezing, no rales Cardiovascular: RRR, no significant murmur Gastrointestinal: soft, non-tender, no distention, positive bowel sounds Musculoskeletal: no edema, pulses present Neurological: non-focal, moves all 4 limbs Psychiatric: A&O x 3 Dx/Plan (1) C. difficile colitis Status: Acute (2) Sepsis Code(s): A41.9 - SEPSIS, UNSPECIFIED ORGANISM Status: Suspected Comment: likely due to c.dif colitis with temp of 103 at home (3) H/O ulcerative colitis Code(s): Z87.19 - PERSONAL HISTORY OF OTHER DISEASES OF THE DIGESTIVE SYSTEM Status: Chronic (4) DM type 2 (diabetes mellitus, type 2) Status: Chronic Qualifiers: Diabetes mellitus complication status: with unspecified complications Diabetes mellitus supervisor intermediates insulin use: without intermediate use Qualified Code( s): E11.8 - Type 2 diabetes mellitus with unspecified complications (5) Dyslipidemia Code(s): E78.5 - HYPERLIPIDEMIA, UNSPECIFIED Status: Chronic (6) Obesity (BMI 30.0-34.9) Code(s): E66.9 - OBESITY, UNSPECIFIED Status: Chronic (7) Porcelain gallbladder Code(s): K82.8 - OTHER SPECIFIED DISEASES OF GALLBLADDER Status: Chronic - Plan to continue vanc for 10 days per -: dc pt home -: to f/u with as adv -: d/w who works with his insurance [employer] reg hospitalization criteri -: counselled to be compliant with meds * .
--- NOTE | 2017-04-12 01:59 | DIS ---
DATE OF ADMISSION: 04/05/2017 DATE OF DISCHARGE: 04/11/2017 DISCHARGE DISPOSITION: To home. PRIMARY DISCHARGE DIAGNOSES: Clostridium difficile colitis, a fever of 103 at home with likely sepsi s due to Clostridium difficile. SECONDARY DISCHARGE DIAGNOSES: History of ulcerative colitis; diabetes mellitus, type 2; dyslipidemi a, obesity. PROCEDURES DONE DURING HOSPITALIZATION: The patient has had initial chest x-ray done, which showed n o acute cardiopulmonary abnormalities. CT chest done showed no new process when compared to prior CA T scans. Blood cultures x2 no growth. Urine culture no growth. Influenza A and B antigens were neg ative. Respiratory virus panel, PCR was negative. C. diff PCR was positive for toxin. Stool for Sh igella and Campylobacter antigens were negative. C. diff antigen and toxin assay was negative. This was on the day of discharge. ALLERGIES: No known drug allergies. INPATIENT CONSULTS: Dr. Thomas Gore for Gastroenterology, Dr. Jordan for Infectious Disease. DISCHARGE PLAN: The patient to follow up with primary care physician in one week and Dr. Gore as ad vised. BRIEF COURSE DURING HOSPITALIZATION: Patient initially came to ER with history of fever of [address] [facility]. He has had chills and sweating at home. On arrival in the ER, the patient had a temperature of 98 degrees. His initial temperature was 101.2. In view of patient's history of this fever of 102 an d 103 at home and 101 on arrival in the ER, the patient was admitted for sepsis for complete workup. He has had pacheco cultures drawn none of which grew anything. The patient has ulcerative colitis and u sually passes stools, which are 6-7 loose watery stools. He had his C. diff PCR screen came back pos itive for toxin. The patient was placed on vancomycin p.o. for the same. In view of patient being o n Humira and immunocompromised, he was closely monitored. Patient has had consultation with Dr. Chantelle fraire and Dr. Thomas Gore. A CT chest done did not reveal any new findings when compared to prior CAT scan. His stool frequency is more or less the same at the time of discharge. He takes Lomotil for t he same. He has had antigen and toxin assay for C. diff done yesterday, which was negative. In view of initial screen for PCR being positive and the antigen assay being negative with him being immunoc ompromised with multiple medications and being on steroids as well for relative adrenal insufficiency , the patient was asked to continue vancomycin for another 10 days per ID advice. He needs to follow up with Dr. Gore as advised and primary care physician in 1 week. Please see a [id number] docume ntation on [facility] for the day of discharge.
[2017-04-24 10:16] LABS: Anti-Striation AB Negative (Neg:<1:40); Antiparietal Cell Ab 3.1 Units (0.0-20.0); Complement C4 56 mg/dL (14-44); SCL-70 IgG AutoAb <0.2 AI (0.0-0.9); Smith IgG AutoAb <0.2 AI (0.0-0.9); Smooth Muscle AB 21 Units (0-19); Thyroid Peroxidase Abs 15 IU/mL (0-34); U1 RNP/SNRNP IgG AutoAb 0.2 AI (0.0-0.9)
--- NOTE | 2017-05-09 13:56 | EKG ---
Test Reason : Blood Pressure : / mmHG Vent. Rate : 102 BPM Atrial Rate : 102 BPM P-R Int : 186 ms QRS Dur : 120 ms QT Int : 344 ms P-R-T Axes : -12 033 044 degrees QTc Int : 448 ms Sinus tachycardia Right bundle branch block Abnormal ECG Confirmed by IAN NAM, ALINA ([id number]), editor in chief newspaper GRACE MCINTOSH ([id number]) on 05/09/2017 1:55:59 PM Referred By: Confirmed By:ALINA SOSA MD
== END 2017-04-11 13:13 | disposition home health service (06) | DRG 872 ==
LOC: ERS 11:08 → INTOOBSV 14:30 → T4-B 14:30 → OBSVTOIN 04-06 10:18
PROVIDERS: ADMIT Internal Medicine; ATTEND Internal Medicine
DX: A41.9 Sepsis, unspecified organism (principal); K51.90 Ulcerative colitis, unspecified, without complications; E27.40 Unspecified adrenocortical insufficiency; A04.72 Enterocolitis due to Clostridium difficile, not specified as recurrent; E11.9 Type 2 diabetes mellitus without complications; E78.5 Hyperlipidemia, unspecified; Z87.891 Personal history of nicotine dependence; Z90.49 Acquired absence of other specified parts of digestive tract; I10 Essential (primary) hypertension; E66.9 Obesity, unspecified; Z86.73 Personal history of transient ischemic attack (TIA), and cerebral infarction without residual deficits; K82.8 Other specified diseases of gallbladder; Z68.33 Body mass index [BMI] 33.0-33.9, adult
CPT/HCPCS: 36415; 36416; 51701; 71010; 71250; 80048; 80053; 81003; 81015; 82553; 83520; 83605; 84484; 85025; 86160; 86225; 86235; 86376; 86431; 87015; 87040; 87045; 87046; 87086; 87324; 87449; 87493; 87497; 87633; 87899; 93005; 96361; 96365; A4216; J0696; J1650; J1720; J7050

== ENCOUNTER 2017-09-22 17:34 | Inpatient (IN) | payer MEDICARE ==
[2017-09-22] MEDS ORDERED: HumaLOG 300 UNITS/3 ML VIAL ONE (19:27)
[2017-09-22] MEDS ORDERED: Azithromycin 250 MG TAB ONE (20:33)
[2017-09-22] MEDS ORDERED: Ondansetron ODT 4 MG TAB SL PRN (22:08)
[2017-09-22] MEDS ORDERED: Acetaminophen 325 MG TAB PO PRN (22:08)
[2017-09-22] MEDS ORDERED: Ondansetron HCl/PF 4 MG/2 ML Vial IVP PRN ×2 (22:08→23:27)
[2017-09-22 22:09] VITALS: BMI 33.0
[2017-09-22] MEDS ORDERED: Prevnar 13-Val Conj/PF 0.5 ML SYRINGE IM ONE (23:15)
[2017-09-22] MEDS ORDERED: Diphenoxylate HCl/Atropine Tablet PO PRN (23:27)
[2017-09-22] MEDS ORDERED: Ondansetron ODT 4 MG TAB PO PRN (23:27)
[2017-09-22] MEDS ORDERED: predniSONE 20 MG TAB PO SCH (23:30)
[2017-09-23] MEDS: Sodium Chloride 0.9% 1,000 ML IV SCH ×2 (03:15→16:45)
[2017-09-23 04:56] LABS: Anion Gap 13 mmol/L (10-20); BUN (Urea Nitrogen) 27 mg/dL (8.4-25.7); Calc. Creatinine Clearance 83 mL/min (70-130); Calcium 8.4 mg/dL (7.8-10.44); Carbon Dioxide 19 mmol/L (23-31); Chloride 107 mmol/L (98-107); Estimated GFR-MDRD 62; Glucose 461 mg/dL (83-110); Potassium 4.2 mmol/L (3.5-5.1); Sodium 135 mmol/L (136-145)
[2017-09-23 05:27] LABS: Band 5 % (5-11); Hemoglobin 11.4 g/dL (14.0-18.0); Hypochromia SLIGHT = 6-15 cells (100X) (0-5/hpf); Lymphocytes 8 % (21-51); MDiff Complete? YES; Mean Corpuscular HGB CONC 32.9 g/dL (32.0-36.0); Mean Corpuscular Hemoglobin 29.6 pg (27.0-31.0); Mean Platelet Volume 7.7 fL (7.4-10.4); Monocytes 5 % (0-10); Neutrophil 82 % (42-75); PLT Morphology Comment Appears Adequate; Platelet Count 287 thou/uL (130-400); RBC Distribution Width 14.1 % (11.5-14.5); Red Blood Cell (RBC) Count 3.86 mill/uL (4.70-6.10); White Blood Cell (WBC) Count 12.6 thou/uL (4.8-10.8)
--- NOTE | 2017-09-23 06:25 | HP ---
DATE OF ADMISSION: 09/22/2017 PRIMARY CARE PHYSICIAN: Dr. Jimi Brown. CHIEF COMPLAINT: General weakness and abdominal pain. HISTORY OF PRESENT ILLNESS: This is a 76-year-old male who presents to [facility] and transferred from [facility], complaining of generalized weakness at home. The patient states he went to have a bowel movement after preparing breakfast for his when he was suddenly unable to get off the toilet. The patient states he has a history of ulcerative colitis, on Humira and chronic prednisone therapy and states normally has 6-7 bowel movements per da y. The patient states he had been feeling generally well except for intermittent fevers over the las t 5-7 days, treated with aspirin and Tylenol. The patient apparently also was treated with a 5-day Z -Spike after concern for upper respiratory and sinus infection. The patient had noted a fever up to 10 3 degrees Fahrenheit associated nausea. The patient presented to the emergency room for general eval uation. The patient denied any dysuria or hematuria. The patient denied any yeison blood in the stoo l. The patient states his appetite has been baseline for him and has been functional of all activiti es of daily living. The patient states he is followed by an [employer] admin in [place], who re cently lowered his chronic prednisone therapy to 7.5 mg in the morning and 5 mg at night. The patien t denies any recent travel history, trauma, injury, or family members with similar symptoms. In the emergency room, the patient underwent general evaluation including chest imaging showing no acute inf iltrate. The patient received a multitude of medications in the emergency room including intravenous normal saline x2 liters, Zofran, Decadron, Solu-Medrol, Toradol, and Reglan. The patient was transf erred to [facility] Department for further evaluation. PAST MEDICAL HISTORY: 1. Ulcerative colitis, on immunosuppressive therapy with Humira. 2. Diabetes mellitus type 2, insulin requiring. 3. History of ulcerative colitis. 4. Hyperlipidemia. 5. Hypertension. 6. Deconditioning. 7. Adrenal insufficiency with chronic prednisone therapy. 8. Abdominal hernia. 9. History of ischemic cerebrovascular accident. PAST SURGICAL HISTORY: 1. Status post partial colectomy with colostomy with subsequent reanastomosis. 2. Status post thyroid surgery. 3. Status post hernia repair. CURRENT MEDICATIONS: 1. Humira 40 mg subcutaneously every 7 days. 2. Lomotil 2 tablets p.o. q.i.d. p.r.n. 3. Humalog 5 units subcutaneously b.i.d. with meals. 4. Glargine insulin 20 units subcutaneously q.a.m. 5. Lactobacillus 1 capsule p.o. daily. 6. Mesalamine 1.2 grams 2 tablets p.o. q.a.m. 7. Metformin 1000 mg p.o. b.i.d. 8. Protonix 40 mg p.o. at bedtime. 9. Prednisone 7.5 mg p.o. q.a.m. and 5 mg p.o. at bedtime. ALLERGIES: No known drug allergies. FAMILY HISTORY: No inheritable diseases per patient report. SOCIAL HISTORY: Patient is and resides in [place], [place]. Retired from the [employer]. No current alcohol, tobacco, or illicit drug use. Former tobacco use, quitting more than 10 years prior to this evaluation. REVIEW OF SYSTEMS: The following complete review of systems was negative, unless otherwise mentioned in the HPI or below: Constitutional: Weight loss or gain, ability to conduct usual activities. Sk in: Rash, itching. Eyes: Double vision, pain. ENT/Mouth: Nose bleeding, neck stiffness, pain, te nderness. Cardiovascular: Palpitations, dyspnea on exertion, orthopnea. Respiratory: Shortness of breath, wheezing, cough, hemoptysis, fever or night sweats. Gastrointestinal: Poor appetite, abdom inal pain, heartburn, nausea, vomiting, constipation, or diarrhea. Genitourinary: Urgency, frequenc y, dysuria, nocturia. Musculoskeletal: Pain, swelling. Neurologic/Psychiatric: Anxiety, depressio n. Allergy/Immunologic: Skin rash, bleeding tendency. PHYSICAL EXAMINATION: VITAL SIGNS: Currently, blood pressure 118/56, pulse 78, respiratory rate 18, temperature 97.6 degre es Fahrenheit, O2 saturation 97% on room air. GENERAL APPEARANCE: This is a 76-year-old male, alert and oriented x3, pleasant, conversan t, in no acute distress. HEENT: Pupils are equal, round, and reactive to light and accommodation. Extraocular muscles are in tact. No scleral icterus, no conjunctival injection. Nares patent. OP is clear. NECK: Supple. No cervical adenopathy, no thyromegaly, no carotid bruits, no JVD appreciated. Cervi cristopher spine with full active and passive range of motion. No meningeal signs appreciated. CHEST: Lungs are clear to auscultation bilaterally. CARDIOVASCULAR: S1, S2, without noted murmur, rub, or gallop. ABDOMEN: Rounded with midline abdominal hernia noted. Bowel sounds are positive in all four quadran ts. There is no hepatosplenomegaly, no abdominal bruits, no rebound or guarding appreciated. EXTREMITIES: Warm and dry with fair turgor. No clubbing, cyanosis, or asymmetric edema appreciated. Pulses palpable distally at the dorsalis pedis, posterior tibial, and popliteal arteries bilaterall y. Capillary refill less than 2 seconds. NEUROLOGIC: Cranial nerves II through XII are grossly intact. No focal or lateralizing signs apprec iated. The patient not observed ambulatory during this exam. PERTINENT LABORATORY AND X-RAY FINDINGS: Basic metabolic profile within normal limits. Creatinine 1 .29, estimated GFR 54. Hemoglobin A1c 11.2 on 08/23/2017. Calcium is 10.1, magnesium 1.5. LFTs wit hin normal limits. Amylase 66. CBC showed a white blood cell count of 10.9, hemoglobin 14, hematocr it 43, platelet count 299 with 80% neutrophils. EKG dated 09/22/2017 by my interpretation shows sinu s tachycardia with heart rates in the 110s. Normal R-wave progression noted in the precordial leads. Right bundle branch block pattern noted. No acute ST-T wave changes appreciated. ASSESSMENT AND PLAN: 1. Febrile episode. Exact etiology unclear. The patient will be observed on the medical floor. We will continue serial monitoring. The patient received multiple treatments in the emergency departme including Decadron and Solu-Medrol. We will continue symptomatic and supportive management. Ana Maria tor temperature curve. No focal process identified currently. 2. Adrenal insufficiency. Suspected given patient's chronic prednisone therapy in the context of ul cerative colitis. We will continue prednisone 40 mg x1 now and daily. 3. Ulcerative colitis. Chronic. No specific evidence to suggest an acute exacerbation. We will co nsult GI service for any further recommendations. Resume his home regimen to include mesalamine two tablets q.a.m. 4. Hypotension. Mild and resolved. We will continue intravenous normal saline at 75 mL per hour. Encourage increased free water intake. Hold antihypertensive medications. 5. Chronic kidney disease, stage 3. Avoid nephrotoxic agents and contrast media. Repeat creatinine in the a.m. 6. Diabetes mellitus type 2, insulin requiring. Insulin sliding scale for reflexive coverage. ADA diet. 7. Generalized weakness. Suspect multifactorial given above. PT evaluation for functional assessme nt. 8. Prophylaxis. Sequential compression devices while in bed. Protonix 40 mg daily. 9. Code status is FULL. Surrogate medical decision maker is patient's spouse.
[2017-09-23] MEDS: HumaLOG 300 UNITS/3 ML VIAL SC SCH ×2 (08:42→16:45)
[2017-09-23] MEDS: predniSONE 20 MG TAB PO SCH (08:43)
[2017-09-23] MEDS: Mesalamine DR 400 mg Capsule PO SCH (08:59)
[2017-09-23] MEDS ORDERED: Insulin Glargine 20 UNITS in Pre-Filled Syringe 1 EACH SC SCH (09:00)
--- NOTE | 2017-09-23 12:17 | CON ---
DATE OF CONSULTATION: 09/23/2017 GI INPATIENT CONSULTATION NOTE REQUESTING PHYSICIAN: Dr. Little. REASON FOR CONSULTATION: Ulcerative colitis. HISTORY OF PRESENT ILLNESS: Thomas Basurto is a 76-year-old man seen over the past several years by [facility] GI colleague, Dr. Thomas Gore for his history of ulcerative colitis. The patient is on chronic t herapy with Humira at a dose of 40 mg weekly at this time. However, due to a loss of response recent ly, Dr. Gore has planned to get him switched to Entyvio infusions. This has not happened yet, but i s evidently all being arranged. Mr. Basurto has been on chronic steroid therapy for a long time and is followed by an unit operator in [place] who evidently recently lowered his chronic prednison e therapy to 7.5 mg in the morning and 5 mg at night when he had previously been on 15mg. The patien t states that chronically he has 6-7 bowel movements per day. There is no hematochezia, no melena. There has been no recent change in bowel habits or any flare up of abdominal pain. He presented to [facility] Emergency Department complaining of generalized weakness at home and also some fevers that has been going on over the past week or so. He was recently treated with a 5-day Z-CHARI for con cern for upper respiratory infection, but even following that he evidently had a fever to 100 degrees Fahrenheit. He was admitted to the hospital last night, given Decadron and Solu-Medrol. Currently, this morning he is feeling pretty well. He says he has had 4 bowel movements so far today. He is n ot having any abdominal pain. He has been hemodynamically stable. REVIEW OF SYSTEMS: Full review of systems including constitutional, head, eyes, ears, nose, throat, GI, , cardiovascular, respiratory, musculoskeletal, and neurologic systems is negative except as no nicci in the HPI. PAST MEDICAL HISTORY: Ulcerative colitis, on Humira 40 mg once weekly, diabetes type 2 on insulin, h yperlipidemia, hypertension, deconditioning, adrenal insufficiency with chronic prednisone therapy, a bdominal hernia, history of ischemic cerebrovascular accident, partial colectomy with colostomy and s ubsequent reanastomosis performed for diverticulitis, thyroid surgery and hernia repair. OUTPATIENT MEDICATIONS: Humira 40 mg every 7 days, Lomotil p.r.n., Humalog insulin b.i.d. with meals , Glargine insulin 20 units subcutaneously q.a.m., lactobacillus 1 capsule daily, mesalamine 2.4 gram s daily, metformin, Protonix 40 mg daily, prednisone 7.5 mg in the morning and 5 mg at bedtime. ALLERGIES: No known drug allergies. FAMILY HISTORY: Noncontributory. SOCIAL HISTORY: No alcohol, tobacco or drug use. He quit smoking more than 10 years ago. PHYSICAL EXAMINATION: VITAL SIGNS: Temperature 97.3, pulse 85, blood pressure 137/69, 98% oxygen saturation on room air. GENERAL: No acute distress. SKIN: No jaundice, no rash visible or palpable. EYES: No scleral icterus. Extraocular movements intact. ENT: Mucous membranes moist, no oral lesions. LYMPH: No submandibular or supraclavicular lymphadenopathy. THYROID: Nontender to palpation. HEART: Regular rate and rhythm. LUNGS: Clear to auscultation bilaterally. ABDOMEN: He has a large anterior hernia easily reducible. Bowel sounds present, soft and nontender to palpation throughout. EXTREMITIES: No peripheral edema. VESSELS: Radial pulses 2+ bilaterally. NEUROLOGICAL: Cranial nerves II-XII intact bilaterally. No focal deficits. LABORATORY DATA: WBC 12.6, hemoglobin 11.4, and platelets 287. Sodium 135, potassium 4.2, BUN 27, c reatinine 1.16 and glucose 461. ASSESSMENT AND PLAN: 1. Ulcerative colitis, suboptimal control on weekly Humira and chronic low dose prednisone. 2. Adrenal insufficiency. 3. Recent fevers of unclear etiology. It does not appear that the patient is particularly having an acute flare of his ulcerative colitis. Symptoms seem to be at baseline which is suboptimally contro lled. This is why Dr. Gore has planned to get him switched to Entyvio. This is all in process. I discussed with the patient. He does need to continue with the Humira until the Entyvio can get start ed, but obviously the Humira should be held while he is having these fevers. Due to this and adrenal insufficiency, I think we have to be a bit more liberal with the steroid dosing at least temporarily . He got 40 mg of prednisone this morning. I would continue this, with a plan to taper over the cou rse of the next couple of weeks back down to his prior dosing. The patient should follow up in clini c closely with Dr. Gore. Continue mesalamine in the meantime as well. Continue to hold the Humira this week until he has been afebrile for at least 2-3 days and then resume it once weekly dosing. Thanks for the consultation. Please call back with questions or concerns.
[2017-09-23] MEDS ORDERED: Dextrose 50% Abboject 50 ML SYRINGE IVP PRN (12:48)
[2017-09-23] MEDS ORDERED: Dextrose 5% in Water 1,000 ML IV PRN (12:48)
[2017-09-23 14:52] LABS: Lactic Acid 2.6 mmol/L (0.5-2.2)
--- NOTE | 2017-09-23 14:52 | PDOC.PN ---
- Subjective Encounter Start Date: 09/23/17 Encounter Start Time: 13:00 Patient is seen today, along with His Son at Bedside, pt is admitted with Fever and Diarrhea, with h/o Adrenal insufficnecy and Ulcerative Colitis with Rosi and chronic Steroids. Pt is explained about the plan and answered all the questions. - Objective Resuscitation Status: Resuscitation Status FULL:Full Resuscitation MAR Reviewed: Yes Vital Signs & Weight: Vital Signs (12 hours) Temp Pulse Resp BP Pulse Ox 09/23/17 11:31 97.3 F L 83 16 148/65 H 98 09/23/17 08:00 97.3 F L 85 16 09/23/17 07:50 97.3 F L 85 16 137/69 98 09/23/17 03:39 97.9 F 67 16 141/66 H 97 Weight Weight 230 lb 9.6 oz I&O: 09/22/17 09/23/17 09/24/17 06:59 06:59 06:59 Intake Total 780 Balance 780 Result Diagrams: 09/23/17 04:34 09/23/17 04:34 Additional Labs: Accuchecks 09/23/17 11:35 POC Glucose 277 H Radiology Reviewed by me: Yes Phys Exam - Physical Examination HEENT: PERRLA, moist MMs Neck: no nodes, no JVD Respiratory: no wheezing Cardiovascular: RRR, no significant murmur Gastrointestinal: soft, non-tender Musculoskeletal: no edema, pulses present Neurological: non-focal, normal sensation Lymphatic: no nodes Psychiatric: normal affect, A&O x 3 Dx/Plan (1) Diarrhea Code(s): R19.7 - DIARRHEA, UNSPECIFIED Status: Acute Comment: Will do Cdiff assay on stool sampl, continuos to have severe watery diarrhea, pt had h/o Cdiff infectuion In april last year. (2) DM type 2 (diabetes mellitus, type 2) Status: Chronic Qualifiers: Diabetes mellitus assisted insulin use: without keno terminal operator use Diabetes mellitus complication status: with unspecified complications Qualified Code(s) : E11.8 - Type 2 diabetes mellitus with unspecified complications Comment: PoorlY controlled, Likely fromSteroids, pt is on levmer 20mg SC BID and Will do SSI moderate. Keep BG 140-180. (3) Dyslipidemia Code(s): E78.5 - HYPERLIPIDEMIA, UNSPECIFIED Status: Chronic Comment: Continue with home Meds (4) H/O ulcerative colitis Code(s): Z87.19 - PERSONAL HISTORY OF OTHER DISEASES OF THE DIGESTIVE SYSTEM Status: Chronic Comment: GI is following, pt responding poorly to rosi will continue with Entyvio, will contiue Po Steroids and slow taper in 2-3 weeks to his home dose. (5) Obesity (BMI 30.0-34.9) Code(s): E66.9 - OBESITY, UNSPECIFIED Status: Chronic (6) Adrenal insufficiency Code(s): E27.40 - UNSPECIFIED ADRENOCORTICAL INSUFFICIENCY Status: Suspected Comment: On Po steroids now. Chu BP. (7) Sepsis Code(s): A41.9 - SEPSIS, UNSPECIFIED ORGANISM Status: Suspected Comment: likely due to c.dif colitis with temp of 103 at home, pending Stool studies, Elvated WBC, will do IV antibiotics as pt is high risk due to immune suppresed state. (8) Acute kidney failure Status: Resolved Comment: Improving with IV fluids. - Plan cont current plan of care, plan discussed w/ family, continue antibiotics, PT/OT , respiratory therapy, incentive spirometry, out of bed/ambulate, DVT proph w/ heparin, DVT proph w/SCDs * . Review of Systems - Review of Systems Eyes: negative: Pain, Vision Change, Conjunctivae Inflammation, Eyelid Inflammation, Redness, Other ENT: negative: Ear Pain, Ear Discharge, Nose Pain, Nose Discharge, Nose Congestion, Mouth Pain, Mouth Swelling, Throat Pain, Throat Swelling, Other Respiratory: negative: Cough, Dry, Shortness of Breath, Hemoptysis, SOB with Excertion, Pleuritic Pain, Sputum, Wheezing Cardiovascular: negative: chest pain, palpitations, orthopnea, paroxysmal nocturnal dyspnea, edema, light headedness, other Gastrointestinal: negative: Nausea, Vomiting, Abdominal Pain, Diarrhea, Constipation, Melena, Hematochezia, Other Genitourinary: negative: Dysuria, Frequency, Incontinence, Hematuria, Retention , Other Musculoskeletal: negative: Neck Pain, Shoulder Pain, Arm Pain, Back Pain, Hand Pain, Leg Pain, Foot Pain, Other Skin: negative: Rash, Lesions, August, Bruising, Other - Medications/Allergies Allergies/Adverse Reactions: Allergies Allergy/AdvReac Type Severity Reaction Status Date / Time No Known Allergies Allergy Verified 09/22/17 23:05 Medications: Current Medications Acetaminophen (Tylenol) 1,000 mg PO Q6H PRN PRN Reason: Headache/Fever or Mild Pain Dextrose/Water (Dextrose 50%) 25 gm IVP PRN PRN PRN Reason: HYPOGLYCEMIA PROTOCOL Diphenoxylate HCl/Atropine (Lomotil) 2 tab PO QID PRN PRN Reason: Diarrhea/Loose Stools Glucagon (Glucagon) 1 mg IM PRN PRN PRN Reason: HYPOGLYCEMIA PROTOCOL Sodium Chloride (Normal Saline 0.9%) 1,000 mls @ 75 mls/hr IV .[id number] [facility] Last Admin: 09/23/17 03:15 Dose: 1,000 mls Insulin Glargine 20 units/ (Miscellaneous Medication) 0.2 mls @ 0 mls/hr SC [facility] PRN Reason: As Directed Dextrose/Water (D5w) 1,000 mls @ 0 mls/hr IV INF PRN; As Directed PRN Reason: HYPOGLYCEMIA PROTOCOL [facility]ulin [facility]) [facility] Last Admin: 09/23/17 08:42 Dose: 5 unit Insulin Human Lispro (Humalog) 0 units SC .MODERATE SLIDING SC PRN; Protocol PRN Reason: MODERATE SLIDING SCALE Mesalamine (Delzicol Dr) 2,400 mg PO [facility] Last Admin: 09/23/17 08:59 Dose: 2,400 mg Ondansetron HCl (Zofran Odt) 4 mg PO Q6H PRN PRN Reason: Nausea/Vomiting Ondansetron HCl (Zofran) 4 mg IVP Q6H PRN PRN Reason: Nausea/Vomiting Pantoprazole Sodium (Protonix) 40 mg PO [facility] Prednisone (Prednisone) 40 mg [facility] Last Admin: 09/23/17 08:43 Dose: 40 mg Sodium Chloride (Flush - Normal Saline) 10 ml IVF Q12HR [facility] Last Admin: 09/23/17 09:00 Dose: Not Given Sodium Chloride (Flush - Normal Saline) 10 ml IVF PRN PRN PRN Reason: Saline Flush
[2017-09-23] MEDS ORDERED: metroNIDAZOLE 500 MG in Premix Bag 1 BAG IVPB SCH (16:00)
[2017-09-23] MEDS: HumaLOG 300 UNITS/3 ML VIAL SC PRN ×2 (16:45→19:47)
[2017-09-23] MEDS: Insulin Glargine 20 UNITS in Pre-Filled Syringe 1 EACH SC SCH (19:45)
[2017-09-24] MEDS: Simvastatin 5 MG TAB PO SCH ×2 (00:48→21:41)
[2017-09-24] MEDS: Sodium Chloride 0.9% 1,000 ML IV SCH ×2 (01:17→16:45)
[2017-09-24 04:30] LABS: #Eosinphils 0.1 thou/uL (0.0-0.7); #Lymphocytes 2.8 thou/uL (1.20-3.40); #Monocytes 0.6 thou/uL (0.11-0.59); #Neutrophils 11.2 thou/uL (1.40-6.50); %Basophils 0.2 % (0.0-1.0); %Eosinophils 0.5 % (0.0-10.0); %Monocytes 4.2 % (0.0-10.0); %Neutrophils 76.1 % (42.0-75.0); Hemoglobin 12.4 g/dL (14.0-18.0); Mean Corpuscular HGB CONC 33.2 g/dL (32.0-36.0); Mean Corpuscular Hemoglobin 29.6 pg (27.0-31.0); Mean Corpuscular Volume 89.2 fl (80.0-94.0); Mean Platelet Volume 7.6 fL (7.4-10.4); Platelet Count 358 thou/uL (130-400); RBC Distribution Width 14.1 % (11.5-14.5); Red Blood Cell (RBC) Count 4.19 mill/uL (4.70-6.10); White Blood Cell (WBC) Count 14.7 thou/uL (4.8-10.8)
[2017-09-24 04:48] LABS: Anion Gap 9 mmol/L (10-20); BUN (Urea Nitrogen) 21 mg/dL (8.4-25.7); Calc. Creatinine Clearance 101 mL/min (70-130); Calcium 8.6 mg/dL (7.8-10.44); Carbon Dioxide 22 mmol/L (23-31); Chloride 108 mmol/L (98-107); Estimated GFR-MDRD 77; Glucose 238 mg/dL (83-110); Potassium 4.3 mmol/L (3.5-5.1); Sodium 135 mmol/L (136-145)
[2017-09-24] MEDS: HumaLOG 300 UNITS/3 ML VIAL SC PRN (06:35)
[2017-09-24] MEDS: HumaLOG 300 UNITS/3 ML VIAL SC SCH ×2 (08:33→16:45)
[2017-09-24] MEDS: Mesalamine DR 400 mg Capsule PO SCH (08:33)
[2017-09-24] MEDS: predniSONE 20 MG TAB PO SCH (08:34)
--- NOTE | 2017-09-24 11:29 | PRG ---
DATE OF SERVICE: 09/23/2017 SUBJECTIVE: Mr. Basurto tells me that he is feeling worse today than yesterday. He has some significa nt nausea. He has had three bowel movements already this morning, 7 bowel movements in total yesterd ay. There has been some blood streaking in the stool. He says this is not really unusual for him, b ut he is having more abdominal discomfort than usual. PHYSICAL EXAMINATION: VITAL SIGNS: Temperature 97.8, pulse 68, blood pressure 162/83, 93% oxygen saturation on room air. GENERAL: No acute distress. HEART: Regular rate and rhythm. LUNGS: Clear to auscultation bilaterally. ABDOMEN: Bowel sounds are present, soft, some mild tenderness to palpation throughout. No rebound t enderness. EXTREMITIES: No peripheral edema. LABORATORY STUDIES: WBC up to 14.7, hemoglobin 12.4, platelets 358. Sodium 135, potassium 4.3, BUN 21, creatinine 0.95, glucose 209. ASSESSMENT AND PLAN: 1. Ulcerative colitis flare. 2. Fevers. 3. Adrenal insufficiency. Patient has now been afebrile for the past 3 days. On the other hand, he seems to be having worsening diarrhea and pain at this time. Note, the C. difficile was negative. He had declined IV Flagyl yesterday, but I would actually like to start that today and he is agreeabl e to this. We will continue the steroids and prednisone 40 mg daily. If he remains afebrile for ano ther day or two, then I do not think his Humira injection should be delayed any longer. Dr. Gore is returning tomorrow.
[2017-09-24] MEDS ORDERED: metroNIDAZOLE 500 MG in Premix Bag 1 BAG IVPB SCH (12:00)
--- NOTE | 2017-09-24 16:02 | PDOC.PN ---
- Subjective Encounter Start Date: 09/24/17 Encounter Start Time: 10:00 Patient is seen today, alert and oriented. No other Concenr snoted. Pt is still feeling very weak, and had multiple Episodes of Diarrhea. - Objective MAR Reviewed: Yes Vital Signs & Weight: Vital Signs (12 hours) Temp Pulse Resp BP Pulse Ox 09/24/17 11:26 97.4 F L 70 16 170/74 H 98 09/24/17 07:59 97.8 F 68 16 09/24/17 07:10 97.8 F 68 16 162/83 H 93 L I&O: 09/23/17 09/24/17 09/25/17 06:59 06:59 06:59 Intake Total 1162 Output Total 2 Balance 1160 Result Diagrams: 09/24/17 04:05 09/24/17 04:05 Additional Labs: Accuchecks 09/24/17 09/24/17 09/23/17 11:32 06:31 19:46 POC Glucose 246 H 209 H 340 H Radiology Reviewed by me: Yes Phys Exam - Physical Examination HEENT: PERRLA, moist MMs Neck: no nodes, no JVD Respiratory: no wheezing, no rales Cardiovascular: RRR, no significant murmur Gastrointestinal: soft, non-tender Musculoskeletal: no edema Lymphatic: no nodes Psychiatric: normal affect Dx/Plan (1) Diarrhea Code(s): R19.7 - DIARRHEA, UNSPECIFIED Status: Acute Comment: Cdiff neg, continuos to have Diarrhea, 4-5 times , No fever. persistant nausea.Will continue Flagly 500mg q 6hrs (2) DM type 2 (diabetes mellitus, type 2) Status: Chronic Qualifiers: Diabetes mellitus termination clerk insulin use: without termination clerk use Diabetes mellitus complication status: with unspecified complications Qualified Code(s) : E11.8 - Type 2 diabetes mellitus with unspecified complications Comment: PoorlY controlled, Likely fromSteroids, pt is on levmer 20mg SC BID and Will do SSI moderate. Keep BG 140-180. (3) Dyslipidemia Code(s): E78.5 - HYPERLIPIDEMIA, UNSPECIFIED Status: Chronic Comment: Continue with home Meds (4) H/O ulcerative colitis Code(s): Z87.19 - PERSONAL HISTORY OF OTHER DISEASES OF THE DIGESTIVE SYSTEM Status: Chronic Comment: GI is following, pt responding poorly to rosi will continue with Entyvio, will contiue Po Steroids and slow taper in 2-3 weeks to his home dose. (5) Obesity (BMI 30.0-34.9) Code(s): E66.9 - OBESITY, UNSPECIFIED Status: Chronic (6) Adrenal insufficiency Code(s): E27.40 - UNSPECIFIED ADRENOCORTICAL INSUFFICIENCY Status: Suspected Comment: On Po steroids now. Chu BP. (7) Sepsis Code(s): A41.9 - SEPSIS, UNSPECIFIED ORGANISM Status: Suspected Comment: likely due to c.dif colitis with temp of 103 at home, pending Stool studies, Elvated WBC, will do IV antibiotics as pt is high risk due to immune suppresed state. (8) Acute kidney failure Status: Resolved Comment: Improving with IV fluids. - Plan cont current plan of care, continue antibiotics, PT/OT, social services specialist, respiratory therapy, incentive spirometry, DVT proph w/lovenox * . Review of Systems - Review of Systems Constitutional: weakness, malaise Eyes: negative: Pain, Vision Change, Conjunctivae Inflammation, Eyelid Inflammation, Redness, Other ENT: negative: Ear Pain, Ear Discharge, Nose Pain, Nose Discharge, Nose Congestion, Mouth Pain, Mouth Swelling, Throat Pain, Throat Swelling, Other Respiratory: negative: Cough, Dry, Shortness of Breath, Hemoptysis, SOB with Excertion, Pleuritic Pain, Sputum, Wheezing Cardiovascular: negative: chest pain, palpitations, orthopnea, paroxysmal nocturnal dyspnea, edema, light headedness, other Gastrointestinal: Nausea, Diarrhea Genitourinary: negative: Dysuria, Frequency, Incontinence, Hematuria, Retention , Other Musculoskeletal: negative: Neck Pain, Shoulder Pain, Arm Pain, Back Pain, Hand Pain, Leg Pain, Foot Pain, Other Skin: negative: Rash, Lesions, August, Bruising, Other - Medications/Allergies Allergies/Adverse Reactions: Allergies Allergy/AdvReac Type Severity Reaction Status Date / Time No Known Allergies Allergy Verified 09/22/17 23:05 Medications: Current Medications Acetaminophen (Tylenol) 1,000 mg PO Q6H PRN PRN Reason: Headache/Fever or Mild Pain Dextrose/Water (Dextrose 50%) 25 gm IVP PRN PRN PRN Reason: HYPOGLYCEMIA PROTOCOL Diphenoxylate HCl/Atropine (Lomotil) 2 tab PO QID PRN PRN Reason: Diarrhea/Loose Stools Glucagon (Glucagon) 1 mg IM PRN PRN PRN Reason: HYPOGLYCEMIA PROTOCOL Sodium Chloride (Normal Saline 0.9%) 1,000 mls @ 75 mls/hr IV .[id number] [facility] Last Admin: 09/24/17 01:17 Dose: 1,000 mls Insulin Glargine 20 units/ (Miscellaneous Medication) 0.2 mls @ 0 mls/hr SC [facility] PRN Reason: As Directed Last Admin: 09/23/17 19:45 Dose: 0.2 mls Dextrose/Water (D5w) 1,000 mls @ 0 mls/hr IV INF PRN; As Directed PRN Reason: HYPOGLYCEMIA PROTOCOL Metronidazole 500 mg/ Device 100 mls @ 100 mls/hr IVPB 0000,0800,1600 [facility] Insulin Human Lispro (Humalog) 5 units SC [facility] Last Admin: 09/24/17 08:33 Dose: 5 unit Insulin Human Lispro (Humalog) 0 units SC .MODERATE SLIDING SC PRN; Protocol PRN Reason: MODERATE SLIDING SCALE Last Admin: 09/24/17 06:35 Dose: 4 unit Mesalamine (Delzicol Dr) 2,[address] [facility] Last Admin: 09/24/17 08:33 Dose: 2,400 mg Ondansetron HCl (Zofran Odt) 4 mg PO Q6H PRN PRN Reason: Nausea/Vomiting Last Admin: 09/24/17 08:35 Dose: 4 mg Ondansetron HCl (Zofran) 4 mg IVP Q6H PRN PRN Reason: Nausea/Vomiting Pantoprazole Sodium (Protonix) 40 mg PO [facility] Last Admin: 09/23/17 19:45 Dose: 40 mg Prednisone (Prednisone) 40 mg PO QA-[facility] Last Admin: 09/24/17 08:34 Dose: 40 mg Simvastatin (Zocor) 10 mg PO [facility] Last Admin: 09/24/17 00:48 Dose: Not Given Sodium Chloride (Flush - Normal Saline) 10 ml IVF Q12HR [facility] Last Admin: 09/24/17 08:37 Dose: Not Given Sodium Chloride (Flush - Normal Saline) 10 ml IVF PRN PRN PRN Reason: Saline Flush
[2017-09-24] MEDS: metroNIDAZOLE 500 MG in Premix Bag 1 BAG IVPB SCH (16:45)
[2017-09-24] MEDS: Insulin Glargine 20 UNITS in Pre-Filled Syringe 1 EACH SC SCH (21:43)
[2017-09-24] MEDS: Acetaminophen 500 MG TAB PO PRN (21:59)
[2017-09-25] MEDS: metroNIDAZOLE 500 MG in Premix Bag 1 BAG IVPB SCH ×3 (01:18→15:53)
[2017-09-25] MEDS: HumaLOG 300 UNITS/3 ML VIAL SC PRN ×2 (06:04→16:41)
[2017-09-25] MEDS: Sodium Chloride 0.9% 1,000 ML IV SCH ×2 (06:04→07:53)
[2017-09-25 06:14] LABS: Anion Gap 10 mmol/L (10-20); BUN (Urea Nitrogen) 20 mg/dL (8.4-25.7); Calc. Creatinine Clearance 93 mL/min (70-130); Calcium 8.3 mg/dL (7.8-10.44); Carbon Dioxide 25 mmol/L (23-31); Chloride 105 mmol/L (98-107); Estimated GFR-MDRD 71; Glucose 271 mg/dL (83-110); Potassium 4.1 mmol/L (3.5-5.1); Sodium 136 mmol/L (136-145)
[2017-09-25 06:20] LABS: Band 6 % (5-11); Hemoglobin 11.5 g/dL (14.0-18.0); Lymphocytes 27 % (21-51); MDiff Complete? YES; Mean Corpuscular HGB CONC 33.2 g/dL (32.0-36.0); Mean Corpuscular Hemoglobin 29.7 pg (27.0-31.0); Mean Corpuscular Volume 89.4 fl (80.0-94.0); Mean Platelet Volume 7.9 fL (7.4-10.4); Monocytes 5 % (0-10); Neutrophil 62 % (42-75); PLT Morphology Comment Appears Adequate; Platelet Count 336 thou/uL (130-400); RBC Distribution Width 13.9 % (11.5-14.5); Red Blood Cell (RBC) Count 3.87 mill/uL (4.70-6.10); White Blood Cell (WBC) Count 11.8 thou/uL (4.8-10.8)
[2017-09-25] MEDS: predniSONE 20 MG TAB PO SCH (07:54)
[2017-09-25] MEDS: Mesalamine DR 400 mg Capsule PO SCH (08:12)
[2017-09-25] MEDS: HumaLOG 300 UNITS/3 ML VIAL SC SCH ×2 (08:13→16:41)
--- NOTE | 2017-09-25 16:24 | PDOC.PN ---
- Subjective Encounter Start Date: 09/25/17 Encounter Start Time: 15:20 Patient is seen today, alert and oriented. His Diarrhea is improving. Will closely Monitor. - Objective MAR Reviewed: Yes Vital Signs & Weight: Vital Signs (12 hours) Temp Pulse Resp BP Pulse Ox 09/25/17 08:00 97.3 F L 61 18 175/100 H 96 09/25/17 05:15 97.5 F L 63 20 149/77 H 96 I&O: 09/24/17 09/25/17 09/26/17 06:59 06:59 06:59 Intake Total 1162 1645 720 Output Total 2 Balance 1160 1645 720 Result Diagrams: 09/25/17 05:34 09/25/17 05:34 Additional Labs: Accuchecks 09/25/17 09/25/17 09/24/17 11:43 06:00 20:58 POC Glucose 323 H 243 H 323 H 09/24/17 16:55 POC Glucose 326 H Radiology Reviewed by me: Yes Phys Exam - Physical Examination HEENT: PERRLA, moist MMs Neck: no nodes, no JVD Respiratory: no wheezing, no rales Cardiovascular: RRR, no significant murmur Gastrointestinal: soft, non-tender Musculoskeletal: no edema Neurological: non-focal, normal sensation Lymphatic: no nodes Psychiatric: normal affect, A&O x 3 Skin: no rash Dx/Plan (1) Diarrhea Code(s): R19.7 - DIARRHEA, UNSPECIFIED Status: Acute Comment: Cdiff neg, continuos to have Diarrhea, 4-5 times , No fever. persistant nausea.Will continue Flagly 500mg q 6hrs. improving diarrhea. (2) DM type 2 (diabetes mellitus, type 2) Status: Chronic Qualifiers: Diabetes mellitus half-way insulin use: without half-way use Diabetes mellitus complication status: with unspecified complications Qualified Code(s) : E11.8 - Type 2 diabetes mellitus with unspecified complications Comment: PoorlY controlled, Likely fromSteroids, pt is on levmer 20mg SC BID and Will do SSI moderate. Keep BG 140-180. (3) Dyslipidemia Code(s): E78.5 - HYPERLIPIDEMIA, UNSPECIFIED Status: Chronic Comment: Continue with home Meds (4) H/O ulcerative colitis Code(s): Z87.19 - PERSONAL HISTORY OF OTHER DISEASES OF THE DIGESTIVE SYSTEM Status: Chronic Comment: GI is following, pt responding poorly to rosi will continue with Entyvio, will contiue Po Steroids and slow taper in 2-3 weeks to his home dose. (5) Obesity (BMI 30.0-34.9) Code(s): E66.9 - OBESITY, UNSPECIFIED Status: Chronic (6) Adrenal insufficiency Code(s): E27.40 - UNSPECIFIED ADRENOCORTICAL INSUFFICIENCY Status: Suspected Comment: On Po steroids now. Chu BP. (7) Sepsis Code(s): A41.9 - SEPSIS, UNSPECIFIED ORGANISM Status: Suspected Comment: likely due to c.dif colitis with temp of 103 at home, pending Stool studies, Elvated WBC, will do IV antibiotics as pt is high risk due to immune suppresed state. (8) Acute kidney failure Status: Resolved Comment: Improving with IV fluids. - Plan cont current plan of care, plan discussed w/ family, continue antibiotics, PT/OT , social insurance administrator, respiratory therapy, incentive spirometry, out of bed/ ambulate, DVT proph w/SCDs * . Review of Systems - Review of Systems Eyes: negative: Pain, Vision Change, Conjunctivae Inflammation, Eyelid Inflammation, Redness, Other ENT: negative: Ear Pain, Ear Discharge, Nose Pain, Nose Discharge, Nose Congestion, Mouth Pain, Mouth Swelling, Throat Pain, Throat Swelling, Other Respiratory: negative: Cough, Dry, Shortness of Breath, Hemoptysis, SOB with Excertion, Pleuritic Pain, Sputum, Wheezing Cardiovascular: negative: chest pain, palpitations, orthopnea, paroxysmal nocturnal dyspnea, edema, light headedness, other Gastrointestinal: negative: Nausea, Vomiting, Abdominal Pain, Diarrhea, Constipation, Melena, Hematochezia, Other Musculoskeletal: negative: Neck Pain, Shoulder Pain, Arm Pain, Back Pain, Hand Pain, Leg Pain, Foot Pain, Other - Medications/Allergies Allergies/Adverse Reactions: Allergies Allergy/AdvReac Type Severity Reaction Status Date / Time No Known Allergies Allergy Verified 09/22/17 23:05 Medications: Current Medications Acetaminophen (Tylenol) 1,000 mg PO Q6H PRN PRN Reason: Headache/Fever or Mild Pain Last Admin: 09/24/17 21:59 Dose: 1,000 mg Dextrose/Water (Dextrose 50%) 25 gm IVP PRN PRN PRN Reason: HYPOGLYCEMIA PROTOCOL Diphenoxylate HCl/Atropine (Lomotil) 2 tab PO QID PRN PRN Reason: Diarrhea/Loose Stools Glucagon (Glucagon) 1 mg IM PRN PRN PRN Reason: HYPOGLYCEMIA PROTOCOL Sodium Chloride (Normal Saline 0.9%) 1,000 mls @ 75 mls/hr IV .[id number] [facility] Last Admin: 09/25/17 07:53 Dose: 1,000 mls Insulin Glargine 20 units/ (Miscellaneous Medication) 0.2 mls @ 0 mls/hr SC [facility] PRN Reason: As Directed Last Admin: 09/24/17 21:43 Dose: 0.2 mls Dextrose/Water (D5w) 1,000 mls @ 0 mls/hr IV INF PRN; As Directed PRN Reason: HYPOGLYCEMIA PROTOCOL Metronidazole 500 mg/ Device 100 mls @ 100 mls/hr IVPB 0000,0800,1600 [facility] Last Admin: 09/25/17 15:53 Dose: 100 mls Insulin Human Lispro (Humalog) 5 units SC BID[facility] Last Admin: 09/25/17 08:13 Dose: 5 unit Insulin Human Lispro (Humalog) 0 units SC .MODERATE SLIDING SC PRN; Protocol PRN Reason: MODERATE SLIDING SCALE Last Admin: 09/25/17 06:04 Dose: 4 unit Lisinopril (Zestril) 2.5 mg PO DAILY [facility] Mesalamine (Delzicol Dr) 2,400 mg PO [facility] Last Admin: 09/25/17 08:12 Dose: 2,400 mg Ondansetron HCl (Zofran Odt) 4 mg PO Q6H PRN PRN Reason: Nausea/Vomiting Last Admin: 09/24/17 08:35 Dose: 4 mg Ondansetron HCl (Zofran) 4 mg IVP Q6H PRN PRN Reason: Nausea/Vomiting Pantoprazole Sodium (Protonix) 40 mg PO [facility] Last Admin: 09/24/17 21:41 Dose: 40 mg Prednisone (Prednisone) 40 mg PO QAM[facility] Last Admin: 09/25/17 07:54 Dose: 40 mg Simvastatin (Zocor) 10 mg PO [facility] Last Admin: 09/24/17 21:41 Dose: Not Given Sodium Chloride (Flush - Normal Saline) 10 ml IVF Q12HR [facility] Last Admin: 09/25/17 07:56 Dose: Not Given Sodium Chloride (Flush - Normal Saline) 10 ml IVF PRN PRN PRN Reason: Saline Flush
[2017-09-25] MEDS: Acetaminophen 500 MG TAB PO PRN (18:27)
[2017-09-25] MEDS: Simvastatin 5 MG TAB PO SCH (21:10)
[2017-09-25] MEDS: guaiFENesin ER 600 MG TAB PO SCH (21:11)
[2017-09-25] MEDS: Insulin Glargine 20 UNITS in Pre-Filled Syringe 1 EACH SC SCH (21:17)
--- NOTE | 2017-09-25 22:16 | PRG ---
DATE OF SERVICE: 09/25/2017 SUBJECTIVE: Mr. Basurto had a better day today. He had 6-8 semi-formed stools today as opposed to gre ater than 10 liquidy stools yesterday. He has had no blood in the stool today. He has felt better i n general. OBJECTIVE: VITAL SIGNS: Temperature 97.3, pulse 62, blood pressure 144/81. GENERAL: He is in no acute distress, alert, and oriented x3. LUNGS: He does have some crackles in the lung bases. HEART: Regular rate and rhythm. ABDOMEN: Soft, nontender, nondistended. Bowel sounds are present. EXTREMITIES: Trace lower extremity edema. LABORATORY DATA: White blood cell count 11.8, hemoglobin 11.5, platelets 336, creatinine 1.03. IMPRESSION: 1. Ulcerative colitis. He has been off Humira for the last couple of weeks. He was about to give h imself a shot on Monday when he had the episode that led to this hospitalization. We will hold off t he next Humira dose for 3 more days as long as he continues to be afebrile and his white count improv es. He is started on prednisone 40 mg daily, and is having clinical improvement on that. We are huber iting approval for Entyvio as an outpatient. 2. Adrenal insufficiency and admission with sepsis. He is improved now with antibiotics and steroid s. RECOMMENDATIONS: 1. Continue prednisone 40 mg daily. This can be tapered over the next 5 weeks or so. He is followe d by Endocrinology as an outpatient to help manage the tapering of the steroids as the doses get lowe r. He can continue 40 mg for 7 days, then 30 mg for 7 days, then 20 mg for 7 days, then should be ab le to drop to 10 mg, after which he will have to taper more slowly. 2. He should be able to receive his next Humira dose at home in 3 or 4 days. 3. We are awaiting approval for Entyvio to start infusions as an outpatient. Once he starts Entyvio , then Humira can be discontinued.
[2017-09-26] MEDS: metroNIDAZOLE 500 MG in Premix Bag 1 BAG IVPB SCH ×3 (00:46→15:58)
[2017-09-26] MEDS: Sodium Chloride 0.9% 1,000 ML IV SCH ×2 (00:46→16:03)
[2017-09-26 05:03] LABS: #Eosinphils 0.1 thou/uL (0.0-0.7); #Lymphocytes 4.1 thou/uL (1.20-3.40); #Monocytes 0.7 thou/uL (0.11-0.59); %Basophils 0.1 % (0.0-1.0); %Eosinophils 0.7 % (0.0-10.0); %Lymphocytes 31.7 % (21.0-51.0); %Monocytes 5.4 % (0.0-10.0); %Neutrophils 62.1 % (42.0-75.0); Hemoglobin 12.7 g/dL (14.0-18.0); Mean Corpuscular HGB CONC 33.4 g/dL (32.0-36.0); Mean Corpuscular Hemoglobin 29.6 pg (27.0-31.0); Mean Corpuscular Volume 88.7 fl (80.0-94.0); Mean Platelet Volume 7.4 fL (7.4-10.4); Platelet Count 370 thou/uL (130-400); Red Blood Cell (RBC) Count 4.29 mill/uL (4.70-6.10); White Blood Cell (WBC) Count 12.8 thou/uL (4.8-10.8)
[2017-09-26 05:10] LABS: Anion Gap 9 mmol/L (10-20); BUN (Urea Nitrogen) 19 mg/dL (8.4-25.7); Calc. Creatinine Clearance 99 mL/min (70-130); Calcium 8.5 mg/dL (7.8-10.44); Carbon Dioxide 25 mmol/L (23-31); Chloride 106 mmol/L (98-107); Estimated GFR-MDRD 76; Glucose 268 mg/dL (83-110); Potassium 3.8 mmol/L (3.5-5.1); Sodium 136 mmol/L (136-145)
[2017-09-26] MEDS: HumaLOG 300 UNITS/3 ML VIAL SC PRN ×3 (05:47→21:25)
[2017-09-26] MEDS: Acetaminophen 500 MG TAB PO PRN ×2 (05:49→16:02)
[2017-09-26] MEDS: HumaLOG 300 UNITS/3 ML VIAL SC SCH ×2 (08:11→17:12)
[2017-09-26] MEDS: Lisinopril 2.5 MG TAB PO SCH (08:12)
[2017-09-26] MEDS: predniSONE 20 MG TAB PO SCH (08:12)
[2017-09-26] MEDS: guaiFENesin ER 600 MG TAB PO SCH ×2 (08:12→21:04)
[2017-09-26] MEDS: Mesalamine DR 400 mg Capsule PO SCH (09:59)
--- NOTE | 2017-09-26 14:14 | PDOC.PN ---
- Subjective Encounter Start Date: 09/26/17 Encounter Start Time: 11:00 Patient seen today, he Continuos to have BM with blood Streaked, But No watery stool. well formed stool. - Objective MAR Reviewed: Yes Vital Signs & Weight: Vital Signs (12 hours) Temp Pulse Resp BP Pulse Ox 09/26/17 08:12 62 09/26/17 08:00 97.6 F 62 18 144/81 H 98 I&O: 09/25/17 09/26/17 09/27/17 06:59 06:59 06:59 Intake Total 1645 2725 720 Balance 1645 2725 720 Result Diagrams: 09/26/17 04:43 09/26/17 04:43 Additional Labs: Accuchecks 09/26/17 09/25/17 09/25/17 05:31 20:52 16:31 POC Glucose 241 H 320 H 423 H Radiology Reviewed by me: Yes Phys Exam - Physical Examination HEENT: PERRLA, moist MMs Neck: no nodes, no JVD Respiratory: no wheezing, no rales Cardiovascular: RRR, no significant murmur Gastrointestinal: soft, non-tender Musculoskeletal: no edema, pulses present Neurological: non-focal, normal sensation Psychiatric: normal affect, A&O x 3 Skin: no rash, normal turgor Dx/Plan (1) Diarrhea Code(s): R19.7 - DIARRHEA, UNSPECIFIED Status: Acute Comment: Cdiff neg, continuos to have Diarrhea, 4-5 times , No fever. persistant nausea.Will continue Flagly 500mg q 6hrs. improving diarrhea. (2) DM type 2 (diabetes mellitus, type 2) Status: Chronic Qualifiers: Diabetes mellitus long-term insulin use: without terminal operations supervisor use Diabetes mellitus complication status: with unspecified complications Qualified Code(s) : E11.8 - Type 2 diabetes mellitus with unspecified complications Comment: PoorlY controlled, Likely fromSteroids, pt is on levmer 20mg SC BID and Will do SSI moderate. Keep BG 140-180. (3) Dyslipidemia Code(s): E78.5 - HYPERLIPIDEMIA, UNSPECIFIED Status: Chronic Comment: Continue with home Meds (4) H/O ulcerative colitis Code(s): Z87.19 - PERSONAL HISTORY OF OTHER DISEASES OF THE DIGESTIVE SYSTEM Status: Chronic Comment: GI is following, pt responding poorly to rosi will continue with Entyvio, will contiue Po Steroids and slow taper in 4-5 weeks to his home dose. (5) Obesity (BMI 30.0-34.9) Code(s): E66.9 - OBESITY, UNSPECIFIED Status: Chronic (6) Adrenal insufficiency Code(s): E27.40 - UNSPECIFIED ADRENOCORTICAL INSUFFICIENCY Status: Suspected Comment: On Po steroids now. Stbale BP. (7) Sepsis Code(s): A41.9 - SEPSIS, UNSPECIFIED ORGANISM Status: Suspected Comment: likely due to c.dif colitis with temp of 103 at home, pending Stool studies, Elvated WBC, will do IV antibiotics as pt is high risk due to immune suppresed state. (8) Acute kidney failure Status: Resolved Comment: Improving with IV fluids. - Plan cont current plan of care, plan discussed w/ family, preston catheter, continue antibiotics, PT/OT, director of social services, respiratory therapy, incentive spirometry, DVT proph w/lovenox * . Review of Systems - Review of Systems Eyes: negative: Pain, Vision Change, Conjunctivae Inflammation, Eyelid Inflammation, Redness, Other ENT: negative: Ear Pain, Ear Discharge, Nose Pain, Nose Discharge, Nose Congestion, Mouth Pain, Mouth Swelling, Throat Pain, Throat Swelling, Other Respiratory: negative: Cough, Dry, Shortness of Breath, Hemoptysis, SOB with Excertion, Pleuritic Pain, Sputum, Wheezing Cardiovascular: negative: chest pain, palpitations, orthopnea, paroxysmal nocturnal dyspnea, edema, light headedness, other Gastrointestinal: negative: Nausea, Vomiting, Abdominal Pain, Diarrhea, Constipation, Melena, Hematochezia, Other Musculoskeletal: negative: Neck Pain, Shoulder Pain, Arm Pain, Back Pain, Hand Pain, Leg Pain, Foot Pain, Other - Medications/Allergies Allergies/Adverse Reactions: Allergies Allergy/AdvReac Type Severity Reaction Status Date / Time No Known Allergies Allergy Verified 09/22/17 23:05 Medications: Current Medications Acetaminophen (Tylenol) 1,000 mg PO Q6H PRN PRN Reason: Headache/Fever or Mild Pain Last Admin: 09/26/17 05:49 Dose: 1,000 mg Dextrose/Water (Dextrose 50%) 25 gm IVP PRN PRN PRN Reason: HYPOGLYCEMIA PROTOCOL Diphenoxylate HCl/Atropine (Lomotil) 2 tab PO QID PRN PRN Reason: Diarrhea/Loose Stools Glucagon (Glucagon) 1 mg IM PRN PRN PRN Reason: HYPOGLYCEMIA PROTOCOL Guaifenesin (Mucinex) 600 mg PO Q12HR [facility] Last Admin: 09/26/17 08:12 Dose: 600 mg Sodium Chloride (Normal Saline 0.9%) 1,000 mls @ 75 mls/hr IV .[id number] [facility] Last Admin: 09/26/17 00:46 Dose: 1,000 mls Insulin Glargine 20 units/ (Miscellaneous Medication) 0.2 mls @ 0 mls/hr SC [facility] PRN Reason: As Directed Last Admin: 09/25/17 21:17 Dose: 0.2 mls Dextrose/Water (D5w) 1,000 mls @ 0 mls/hr IV INF PRN; As Directed PRN Reason: HYPOGLYCEMIA PROTOCOL Metronidazole 500 mg/ Device 100 mls @ 100 mls/hr IVPB 0000,0800,1600 [facility] Last Admin: 09/26/17 08:12 Dose: 100 mls Insulin Human Lispro (Humalog) 5 units SC BID-[facility] Last Admin: 09/26/17 08:11 Dose: 5 unit Insulin Human Lispro (Humalog) 0 units SC .MODERATE SLIDING SC PRN; Protocol PRN Reason: MODERATE SLIDING SCALE Last Admin: 09/26/17 05:47 Dose: 4 unit Lisinopril (Zestril) 2.5 mg PO DAILY [facility] Last Admin: 09/26/17 08:12 Dose: 2.5 mg Mesalamine (Delzicol Dr) 2,400 mg PO [facility] Last Admin: 09/26/17 09:59 Dose: 2,400 mg Ondansetron HCl (Zofran Odt) 4 mg PO Q6H PRN PRN Reason: Nausea/Vomiting Last Admin: 09/24/17 08:35 Dose: 4 mg Ondansetron HCl (Zofran) 4 mg IVP Q6H PRN PRN Reason: Nausea/Vomiting Pantoprazole Sodium (Protonix) 40 mg PO [facility] Last Admin: 09/25/17 21:11 Dose: 40 mg Prednisone (Prednisone) 40 mg PO QAM-[facility] Last Admin: 09/26/17 08:12 Dose: 40 mg Simvastatin (Zocor) 10 mg PO [facility] Last Admin: 09/25/17 21:10 Dose: Not Given Sodium Chloride (Flush - Normal Saline) 10 ml IVF Q12HR [facility] Last Admin: 09/26/17 08:16 Dose: Not Given Sodium Chloride (Flush - Normal Saline) 10 ml IVF PRN PRN PRN Reason: Saline Flush
[2017-09-26] MEDS: Simvastatin 5 MG TAB PO SCH (21:04)
[2017-09-26] MEDS: Insulin Glargine 20 UNITS in Pre-Filled Syringe 1 EACH SC SCH (21:22)
--- NOTE | 2017-09-26 21:23 | PRG ---
DATE OF SERVICE: 09/26/2017 SUBJECTIVE: Mr. Basurto has had six bowel movements today. This is stable from yesterday. The stool has formed, but it does have some blood mixed with it. He has had no abdominal pain. He is tolerati ng a solid diet well. He has not done any significant walking today. He does have pain in his legs below the knees. OBJECTIVE: VITAL SIGNS: Temperature 97.6, pulse 62, blood pressure 144/81. GENERAL: He is in no acute distress, alert and oriented x3. LUNGS: Clear to auscultation bilaterally. HEART: Regular rate and rhythm. ABDOMEN: Soft, nontender, nondistended, bowel sounds are present. EXTREMITIES: 1+ pitting lower extremity edema. IMPRESSION: 1. Ulcerative colitis. He has had inadequate response to anti-TNF. He has talked with chapis guardado and the Entyvio has been approved. We will want to start this as soon as we can as an outpatien t. 2. Adrenal insufficiency. He has been on chronic steroids as an outpatient. His blood sugars have been uncontrolled. He has had some agitation associated with the steroids. I will drop his predniso ne from 40 mg to 30 mg. 3. Question of sepsis on presentation. Sepsis versus adrenal insufficiency. The Clostridium diffic ile has been negative. He has been on antibiotics. This can be weaned off based on the Hospitalist recommendations. No need to remain on antibiotics from a GI standpoint. RECOMMENDATIONS: 1. We will decrease the prednisone to 30 mg daily. We can taper this slowly as an outpatient. This will also be done with the assistance of his leasing coordinator. 2. Follow up as an outpatient to initiate Entyvio infusions.
[2017-09-27] MEDS: metroNIDAZOLE 500 MG in Premix Bag 1 BAG IVPB SCH ×2 (00:04→08:34)
[2017-09-27] MEDS: Acetaminophen 500 MG TAB PO PRN ×2 (00:10→09:38)
[2017-09-27] MEDS ORDERED: predniSONE 20 MG TAB PO SCH (08:00)
[2017-09-27 08:23] VITALS: BP 144/77; TEMP 97.5
[2017-09-27] MEDS: guaiFENesin ER 600 MG TAB PO SCH (08:35)
[2017-09-27] MEDS: Lisinopril 2.5 MG TAB PO SCH (08:35)
[2017-09-27] MEDS: HumaLOG 300 UNITS/3 ML VIAL SC SCH (08:37)
[2017-09-27] MEDS ORDERED: Insulin Glargine 15 UNITS in Pre-Filled Syringe 1 EACH SC SCH (09:00)
[2017-09-27] MEDS: Mesalamine DR 400 mg Capsule PO SCH (09:38)
[2017-09-27] MEDS: Sodium Chloride 0.9% 1,000 ML IV SCH (12:28)
--- NOTE | 2017-09-27 13:14 | PDOC.PN ---
- Subjective Encounter Start Date: 09/27/17 Encounter Start Time: 11:15 Subjective: feels better, no diarrhea per patient -: is sitting in chair - Objective MAR Reviewed: Yes Vital Signs & Weight: Vital Signs (12 hours) Temp Pulse Resp BP Pulse Ox 09/27/17 08:35 94 09/27/17 08:19 97.5 F L 94 18 144/77 H 98 09/27/17 08:00 97.4 F L 94 18 97 I&O: 09/26/17 09/27/17 09/28/17 06:59 06:59 06:59 Intake Total 2725 2405 360 Balance 2725 2405 360 Result Diagrams: 09/26/17 04:43 09/26/17 04:43 Additional Labs: Accuchecks 09/27/17 09/26/17 09/26/17 05:36 21:20 16:57 POC Glucose 198 H 271 H 359 H Phys Exam - Physical Examination HEENT: PERRLA, moist MMs Neck: no JVD, supple Respiratory: no wheezing, no rales Cardiovascular: RRR, no significant murmur Gastrointestinal: soft, non-tender, positive bowel sounds Musculoskeletal: no edema, pulses present Neurological: non-focal, moves all 4 limbs Psychiatric: normal affect, A&O x 3 Dx/Plan (1) Exacerbation of ulcerative colitis Code(s): K51.90 - ULCERATIVE COLITIS, UNSPECIFIED, WITHOUT COMPLICATIONS Status: Acute (2) DM type 2 (diabetes mellitus, type 2) Status: Chronic Qualifiers: Diabetes mellitus retirement insulin use: without lastex operator use Diabetes mellitus complication status: with unspecified complications Qualified Code(s) : E11.8 - Type 2 diabetes mellitus with unspecified complications (3) Dyslipidemia Code(s): E78.5 - HYPERLIPIDEMIA, UNSPECIFIED Status: Chronic Comment: Continue with home Meds (4) Obesity (BMI 30.0-34.9) Code(s): E66.9 - OBESITY, UNSPECIFIED Status: Chronic (5) Adrenal insufficiency Code(s): E27.40 - UNSPECIFIED ADRENOCORTICAL INSUFFICIENCY Status: Chronic Comment: On Po steroids now. - Plan to start entyvio shortly in outpt setting -: hemostable -: dc pt home if ok with GI -: continue prednisone long taper, he needs to f/u with GI prior to discontinu -: -ing steroids totally. * .
--- NOTE | 2017-09-27 23:20 | DIS ---
DATE OF ADMISSION: 09/22/2017 DATE OF DISCHARGE: 09/27/2017 DISCHARGE DISPOSITION: To home. PRIMARY DISCHARGE DIAGNOSIS: Ulcerative colitis flareup with diarrhea, resolving. SECONDARY DISCHARGE DIAGNOSES: Adrenal insufficiency, diabetes mellitus type 2, dyslipidemia, obesit y. PROCEDURES DONE DURING HOSPITALIZATION: Chest x-ray done showed no acute process. Stool for C. diff x2 is negative. H&H 12 and 38, platelet count is 370 with 62% neutrophils. Discharge BUN and creat inine is 19 and 0.9. CRP was 5.1. BNP 43, albumin is 3.7. DISCHARGE MEDICATIONS: Prednisone 10 mg 3 times daily for 10 days, then 10 mg twice daily for 10 day s, then 5 mg daily for 10 days and to follow up with Dr. James Gore prior to discontinuing it, pra vastatin 20 mg p.o. bedtime, Protonix 40 mg p.o. at bedtime, metformin 1000 mg p.o. q.a.m., mesalamin e 2.4 grams p.o. q.a.m., Lantus 20 units subQ q.a.m., Humalog 5 units subQ twice daily, Lomotil 2 tab s p.o. 4 times daily p.r.n. ALLERGIES: No known drug allergies. INPATIENT CONSULTS: Dr. Thomas Gore for Gastroenterology. DISCHARGE PLAN: Patient to follow up with Dr. Gore as advised and primary care physician in 1 week. BRIEF COURSE DURING HOSPITALIZATION: The patient needs to check his fingerstick glucose twice daily and record on a sheet of paper to follow up with primary care physician. BRIEF COURSE DURING HOSPITALIZATION: Patient initially came in with complaints of abdominal pain and generalized weakness. He was diagnosed with flareup of ulcerative colitis with nearly 6-7 bowel mov ements per day. Patient also had a fever of 103 and the patient also had a fever of 103. He has had chronic history of ulcerative colitis with him being on Humira. Patient was also on steroids for ad renal insufficiency and ulcerative colitis. He has had consultation with Dr. Robert Pascual/James cummings for Gastroenterology. Patient was continued on prednisone at a lower dose of 30 mg daily. The alfredo n is to start him on Entyvio for which an approval has been obtained per patient. He needs to start this in the next week or so. His diarrhea is controlled well at present. He is back to his baseline diarrhea frequency levels. He is hemodynamically stable and will be shortly discharged home. Nell cummings see a face to face documentation on [facility] for the day of discharge.
== END 2017-09-27 13:03 | disposition home or self-care (01) | DRG 385 ==
LOC: ERS 17:34 → 2SW 20:26 → OBSVTOIN 09-23 19:23 → T4-B 09-24 13:48
PROVIDERS: ADMIT Family Medicine; ATTEND Family Medicine
DX: K51.90 Ulcerative colitis, unspecified, without complications (principal); A41.9 Sepsis, unspecified organism; E27.40 Unspecified adrenocortical insufficiency; N17.9 Acute kidney failure, unspecified; E78.5 Hyperlipidemia, unspecified; E66.9 Obesity, unspecified; Z68.33 Body mass index [BMI] 33.0-33.9, adult; E11.9 Type 2 diabetes mellitus without complications; Z87.891 Personal history of nicotine dependence; Z79.4 Long term (current) use of insulin; I10 Essential (primary) hypertension; R53.81 Other malaise; K46.9 Unspecified abdominal hernia without obstruction or gangrene
CPT/HCPCS: 36415; 36416; 80048; 83605; 84145; 85007; 85025; 85027; 85652; 86140; 87324; 87449; 99285; A4216; G8978-GP-CJ; G8979-GP-CH; J7506; Q0162

== ENCOUNTER 2017-12-30 23:10 | Inpatient (IN) | payer MEDICARE ==
[~2017-12-30 23:10] MED LIST: ISOVUE-370 76%-LOCM 1 ML ONE
[2017-12-30 23:41] LABS: #Lymphocytes 3.4 thou/uL (1.20-3.40); #Monocytes 1.4 thou/uL (0.11-0.59); #Neutrophils 8.1 thou/uL (1.40-6.50); %Basophils 0.2 % (0.0-1.0); %Eosinophils 0.4 % (0.0-10.0); %Lymphocytes 26.2 % (21.0-51.0); %Monocytes 10.5 % (0.0-10.0); %Neutrophils 62.7 % (42.0-75.0); Hemoglobin 13.7 g/dL (14.0-18.0); Mean Corpuscular HGB CONC 34.4 g/dL (32.0-36.0); Mean Corpuscular Hemoglobin 30.8 pg (27.0-31.0); Mean Corpuscular Volume 89.5 fL (78.0-98.0); Platelet Count 307 thou/uL (130-400); RBC Distribution Width 13.9 % (11.5-14.5); Red Blood Cell (RBC) Count 4.45 mill/uL (4.70-6.10); White Blood Cell (WBC) Count 12.9 thou/uL (4.8-10.8)
[2017-12-31 00:04] LABS: ALT (SGPT) 16 U/L (8-55); AST (SGOT) 12 U/L (5-34); Albumin 3.6 g/dL (3.4-4.8); Alkaline Phosphatase 74 U/L (40-150); Anion Gap 14 mmol/L (10-20); BUN (Urea Nitrogen) 20 mg/dL (8.4-25.7); Bilirubin, Total 0.5 mg/dL (0.2-1.2); Calc. Creatinine Clearance 0 mL/min (70-130); Carbon Dioxide 25 mmol/L (23-31); Chloride 107 mmol/L (98-107); Estimated GFR-MDRD 55; Globulin 3.6 g/dL (2.4-3.5); Glucose 63 mg/dL (83-110); Potassium 3.6 mmol/L (3.5-5.1); Protein, Total 7.2 g/dL (5.8-8.1); Sodium 142 mmol/L (136-145)
[2017-12-31 00:07] LABS: CKMB 0.8 ng/mL (0-6.6)
[2017-12-31] MEDS ORDERED: Sodium Chloride 0.9% 100 ML ONE (00:38)
[2017-12-31] MEDS ORDERED: Piperacillin/Tazobactam 4.5 GM VIAL ONE (00:38)
[2017-12-31 00:47] LABS: Base Excess-Venous -1.9 mmol/L (0 (+/- 2.5)); Bicarbonate (HCO3v) 20.4 mmol/L (1.0-85.0); CO2 Tension (PvCO2) 28.6 mmHg (41.0-51.0); Hemoglobin - Calc 16.5 g/dL (12.0-18.0); O2 Tension (PvO2) 99.2 mmHg (35.0-45.0); Potassium 3.8 mmol/L (3.4-4.7); T. Carbon Dioxide 21.3 mmol/L (1.0-85.0); pH (Venous) 7.461 (7.35-7.45); vO2 Saturation-calc 98.2 % (94-98)
[2017-12-31 02:42] LABS: Bilirubin Negative (Negative); Blood, Urine Moderate (Negative); Clarity CLEAR (Clear); Glucose, Urine (Dipstick) Negative (Negative); Leukocyte Small (Negative); Nitrite Negative (Negative); Protein, Urine (Dipstick) Negative (Neg-Trace); Specific Gravity, Urine 1.038 (1.002-1.036); Urobilinogen 0.2 mg/dL (0.2-1.0)
[2017-12-31 02:45] LABS: Bacteria/HPF 1+ HPF (None Seen); Hyaline Casts/LPF 0-3 HYALINE CAST LPF (0-3 Hyaline); RBC/HPF 0-3 HPF (0-3); Squamous Epithelial 0-3 HPF (0-3)
[2017-12-31 05:59] VITALS: BMI 32.8
--- NOTE | 2017-12-31 07:21 | RAD ---
PORTABLE AP CHEST XRAY: DATE: 12/30/17. HISTORY: Weakness that began this evening after taking a nap. COMPARISON: 09/22/17. FINDINGS: Cardiac silhouette is magnified by projection. Pulmonary vasculature is within normal limits. There is increased density at the left lung base probably related to an epicardial fat pad as opposed to p neumonia or atelectasis. Again noted is evidence of prior granulomatous disease. The lungs are othe rwise clear. Degenerative changes are present in the spine. Vascular calcifications are seen in the thoracic aorta. IMPRESSION: 1. No acute cardiopulmonary process. 2. Increased density in the left lung base probably attributable to epicardial fat pad. POS: [facility]
--- NOTE | 2017-12-31 09:40 | CT ---
PRELIMINARY REPORT/[facility]/EMERGENTY AFTER-HOURS PROCEDURE EXAM DATE/TIME: 12/31/2017 12:22 AM CLINICAL HISTORY: Pain; Abdominal pain; Generalized; Prior surgery; Surgery date: 6+ months; Patient HX: Pt C/O weakness and abdominal pain (generalized) TECHNIQUE: Axial computed tomography images of the abdomen and pelvis with intravenous contrast. Albert nal reformatted images were created and reviewed. COMPARISON: No relevant prior studies available. FINDINGS: Lung bases: Mild left basilar consolidation. Right lower lobe calcified granuloma. ABDOMEN: Liver: The liver demonstrates punctate calcifications, consistent with remote granulomatous organism exposure. Gallbladder and bile ducts: The gallbladder is contracted. Mural calcification is present. No ductal dilation. Pancreas: Unremarkable. No mass. No ductal dilation. Spleen: The spleen demonstrates punctate calcifications, consistent with remote granulomatous organis m exposure. Adrenals: Unremarkable. No mass. Kidneys and ureters: Unremarkable. No solid mass. No hydronephrosis. Stomach and bowel: Prior subtotal colectomy. No obstruction. No appreciable mucosal thickening. PELVIS: Appendix: See above. Bladder: Unremarkable. No mass. Reproductive: The prostate is mildly enlarged. ABDOMEN and PELVIS: Intraperitoneal space: Unremarkable. No free air. No significant fluid collection. Bones/joints: Multilevel spondylosis. No acute fracture. No dislocation. Soft tissues: Rectus muscle diastasis. Moderate fat containing upper ventral abdominal wall hernia. A dditional large widemouthed supraumbilical abdominal wall hernia containing small bowel loops without secondary signs to suggest incarceration or strangulation. Small fat containing left inguinal hernia. Vasculature: Aortic valvular and coronary artery calcification. The vasculature demonstrates diffuse moderate atherosclerotic calcification. Areas with medial displacement of intimal calcification and adjacent eccentric thrombus within the infrarenal abdominal aorta and right common iliac artery which may be related to chronic dissection. 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 Lymph nodes: Calcified right hilar lymph nodes. IMPRESSION: 1. No acute abnormality identified within the abdomen and pelvis. 2. Mild left basilar consolidation (atelectasis and/or infiltrate). 3. Other findings as above. ---We are pleased to participate in the care of your patient.--- Thank you for allowing us to participate in the care of your patient. Dictated and Authenticated by: Gilberto Zuleta MD 12/31/2017 1:03 AM Central Time ([place] & [place]) FINAL REPORT CT ABDOMEN AND PELVIS WITH IV CONTRAST: No acute intraabdominal process identified. I am in agreement with the preliminary report. POS: [facility]
[2017-12-31] MEDS ORDERED: Acetaminophen 500 MG TAB PO SCH ×2 (09:45→12:15)
[2017-12-31] MEDS ORDERED: Prevnar 13-Val Conj/PF 0.5 ML SYRINGE IM ONE (12:45)
[2017-12-31] MEDS ORDERED: Dextrose 50% Abboject 50 ML SYRINGE SLOW IVP PRN (12:51)
[2017-12-31] MEDS ORDERED: Guaifenesin DM 100-10/5 ML UDCUP PO PRN (12:51)
[2017-12-31] MEDS ORDERED: Diphenoxylate HCl/Atropine Tablet PO PRN (12:51)
[2017-12-31] MEDS ORDERED: HumaLOG 300 UNITS/3 ML VIAL SC PRN (12:51)
[2017-12-31] MEDS ORDERED: Dextrose 5% in Water 1,000 ML IV PRN (12:51)
[2017-12-31] MEDS: Sodium Chloride 0.9% 1,000 ML IV SCH (13:28)
[2017-12-31] MEDS ORDERED: predniSONE 5 MG TAB PO SCH (16:30)
[2017-12-31] MEDS: predniSONE 5 MG TAB PO SCH (17:01)
[2017-12-31] MEDS: Acetaminophen 325 MG TAB PO PRN (17:46)
--- NOTE | 2017-12-31 19:07 | HP ---
REASON FOR ADMISSION: Sepsis, urinary tract infection, possible pneumonia. HISTORY OF PRESENT ILLNESS: The patient is a very poor historian and does not recall what happened yesterday. All he knows is he was short of breath and called EMS and he was brought here. Currently, has some mid epigastric pain radiating to the back. He states it is more to the lower back area and not something new. I spoke to patient's , Ms. Meghana Basurto, she states that the patient was feeling weak. He could not really press the button of his vital sign machine. The patient managed to go back to sleep and he had to be woken up at 6:15 p.m. yesterday. This is not usual of him per . She also mentions that he was out in the sun yesterday the whole day. He washed his car and finally in the evening after he woke up, he tried checking his vital signs and his blood sugar as well. His sugar was 97, which was apparently low for him as he takes prednisone. He was feeling hot and measured his temperature which was initially 101 degrees, later shot up to 102.3 degrees. He was also breathing funny and had chills. She finally called EMS and was brought here. Currently, the patient has no complaints of chest pain, palpitations or PND. The patient has a large ventral hernia and is currently sitting in his chair. PAST MEDICAL AND SURGICAL HISTORY: History of ulcerative colitis, on immunosuppressive therapy; diabetes mellitus type 2; hypertension; dyslipidemia ; chronic adrenal insufficiency with prednisone therapy; ventral hernia; history of CVA; prior history of partial colectomy; colostomy with subsequent reanastomosis; prior thyroid surgery; prior hernia repair. PERSONAL HISTORY: Does not abuse alcohol or drugs. No history of smoking. Lives with his . FAMILY HISTORY: There is no inheritable disease. CURRENT MEDICATIONS: The patient is on metformin 1000 mg p.o. q.a.m., Lantus 45 units subcu q.p.m., Humalog 10 units subcu 3 times daily, Lomotil 2 tabs p.o. 4 times daily p.r.n., mesalamine 2.4 grams p.o. q.a.m., Protonix 40 mg p.o. at bedtime, prednisone 7.5 mg p.o. twice daily. ALLERGIES: No known drug allergies. REVIEW OF SYSTEMS: The following complete review of systems was negative, unless otherwise mentioned in the HPI or below: Constitutional: Weight loss or gain, ability to conduct usual activities. Skin: Rash, itching. Eyes: Double vision, pain. ENT/Mouth: Nose bleeding, neck stiffness, pain, tenderness. Cardiovascular: Palpitations, dyspnea on exertion, orthopnea. Respiratory: Shortness of breath, wheezing, cough, hemoptysis, fever or night sweats. Gastrointestinal: Poor appetite, abdominal pain, heartburn, nausea, vomiting, constipation, or diarrhea. Genitourinary: Urgency, frequency, dysuria, nocturia. Musculoskeletal: Pain, swelling. Neurologic/Psychiatric: Anxiety, depression. Allergy/Immunologic: Skin rash, bleeding tendency. PHYSICAL EXAMINATION: GENERAL: The patient is a 77-year-old male who is currently not in any acute distress. VITAL SIGNS: Blood pressure 180/86, pulse 110 per minute, respiratory rate 18 per minute, temperature 101 degrees, saturating 94% on room air. NECK: Supple, no elevated JVD. HEENT: Eyes: Extraocular muscles intact. Pupils reacting to light. Oral cavity mucous membranes are dry. No exudates or congestion. CARDIOVASCULAR: S1, S2 heard. Regular rhythm. RESPIRATORY: Air entry 1+ bilateral. Scattered rhonchi plus no rales or wheezes. ABDOMEN: Distended due to chronic ventral hernia. No rigidity or guarding. Bowel sounds are heard. EXTREMITIES: There is mild peripheral edema, no calf tenderness. VASCULAR SYSTEM: Peripheral pulses 1+ bilateral. No ischemic ulcerations or gangrene. CENTRAL NERVOUS SYSTEM: No gross focal deficits noted. Patient is lethargic, but responds well to verbal questions. He is not fully oriented at present. PSYCHIATRIC: No obvious hallucinations at present. LABORATORY AND X-RAY FINDINGS: White count of 12.9, H&H 13 and 39, platelet count 307 with 62% neutrophils, MCV is 89. Electrolytes are stable. Serum bicarbonate 25, BUN 20, creatinine 1.27. Serum glucose was 63, calcium is 9. Liver enzymes within normal limits. First set of troponin was 0.03, CK-MB 0.8, albumin is 3.6. Lipase is 35. UA is positive for UTI. Abdominal and pelvic CAT scan done showed no acute abnormality. Chest x-ray done showed possible left lung base atelectasis versus epicardial fat pad. EKG sinus tachycardia at 107 beats per minute with RBBB. CLINICAL IMPRESSION AND PLAN: The patient will be admitted to telemetry for sepsis with UTI and to rule out pneumonia. Martins cultures have been obtained in the ER. He will be on Levaquin 500 mg IV daily. He will also be on normal saline at 50 mL per hour. We will continue his home dose of prednisone 7.5 mg twice daily and if needed, we will switch to IV based on vital signs. We will continue his Lomotil p.r.n. for his chronic diarrhea with ulcerative colitis. His Lantus will be held for now in view of hypoglycemia on arrival. We will continue his mesalamine and Protonix as before. Continue to closely monitor him on telemetry for now. If patient remains stable, he will be transferred to medical floor tomorrow. I have given complete updates to patient and his over the phone. Code status was discussed and he is a FULL CODE for now. CHRIS
[2017-12-31] MEDS ORDERED: Insulin Glargine 45 UNITS in Pre-Filled Syringe SC SCH (21:00)
[2017-12-31] MEDS ORDERED: Famotidine 20 MG TAB PO SCH (21:00)
[2018-01-01] MEDS: Acetaminophen 325 MG TAB PO PRN ×3 (03:20→20:20)
[2018-01-01 05:24] LABS: #Eosinphils 0.1 thou/uL (0.0-0.7); #Lymphocytes 2.1 thou/uL (1.20-3.40); #Monocytes 0.8 thou/uL (0.11-0.59); %Basophils 0.4 % (0.0-1.0); %Eosinophils 0.7 % (0.0-10.0); %Lymphocytes 23.5 % (21.0-51.0); %Monocytes 8.4 % (0.0-10.0); Hemoglobin 11.9 g/dL (14.0-18.0); Mean Corpuscular HGB CONC 31.8 g/dL (32.0-36.0); Mean Corpuscular Hemoglobin 28.6 pg (27.0-31.0); Mean Corpuscular Volume 89.8 fL (78.0-98.0); Mean Platelet Volume 7.2 fL (7.4-10.4); Platelet Count 244 thou/uL (130-400); RBC Distribution Width 13.9 % (11.5-14.5); Red Blood Cell (RBC) Count 4.17 mill/uL (4.70-6.10)
[2018-01-01 05:34] LABS: Anion Gap 11 mmol/L (10-20); BUN (Urea Nitrogen) 15 mg/dL (8.4-25.7); Calc. Creatinine Clearance 87 mL/min (70-130); Calcium 8.5 mg/dL (7.8-10.44); Carbon Dioxide 21 mmol/L (23-31); Chloride 107 mmol/L (98-107); Estimated GFR-MDRD 67; Glucose 239 mg/dL (83-110); Potassium 3.5 mmol/L (3.5-5.1); Sodium 135 mmol/L (136-145)
[2018-01-01] MEDS ORDERED: metFORMIN 500 MG TAB PO SCH (08:00)
[2018-01-01] MEDS: predniSONE 5 MG TAB PO SCH ×2 (09:06→15:52)
[2018-01-01] MEDS: Mesalamine DR 400 mg Capsule PO SCH (09:08)
[2018-01-01] MEDS: Enoxaparin Sodium 40 MG/0.4 ML SYRINGE SC SCH (11:34)
--- NOTE | 2018-01-01 12:15 | PDOC.PN ---
- Subjective Encounter Start Date: 01/01/18 Encounter Start Time: 10:40 Subjective: is comfortable on bed, no sob or abd dyscomfort - Objective Resuscitation Status: Resuscitation Status FULL:Full Resuscitation MAR Reviewed: Yes Vital Signs & Weight: Vital Signs (12 hours) Temp Pulse Resp BP BP BP Pulse Ox 01/01/18 11:35 98.6 F 95 18 149/71 H 96 01/01/18 07:34 97.8 F 81 20 138/75 96 01/01/18 04:00 98.3 F 95 19 138/78 93 L Weight Weight 226 lb 8 oz I&O: 12/31/17 01/01/18 01/02/18 06:59 06:59 06:59 Intake Total 845 Output Total 400 Balance 445 Result Diagrams: 01/01/18 04:52 01/01/18 04:52 Additional Labs: Accuchecks 01/01/18 01/01/18 12/31/17 07:45 05:46 20:53 POC Glucose 154 H 212 H 173 H 12/31/17 16:58 POC Glucose 136 H Phys Exam - Physical Examination HEENT: PERRLA, moist MMs Neck: no JVD, supple Respiratory: no wheezing, no rales Cardiovascular: RRR, no significant murmur Gastrointestinal: soft, non-tender, positive bowel sounds Musculoskeletal: no edema, pulses present Neurological: non-focal, moves all 4 limbs Psychiatric: normal affect, A&O x 3 Dx/Plan (1) Sepsis Code(s): A41.9 - SEPSIS, UNSPECIFIED ORGANISM Status: Suspected Qualifiers: Sepsis type: sepsis due to unspecified organism Qualified Code(s): A41.9 - Sepsis, unspecified organism (2) UTI (urinary tract infection) Status: Acute Qualifiers: Urinary tract infection type: acute cystitis Hematuria presence: without hematuria Qualified Code(s): N30.00 - Acute cystitis without hematuria (3) Adrenal insufficiency Code(s): E27.40 - UNSPECIFIED ADRENOCORTICAL INSUFFICIENCY Status: Chronic (4) DM type 2 (diabetes mellitus, type 2) Status: Chronic Qualifiers: Diabetes mellitus long term care pharmacist insulin use: without longterm use Diabetes mellitus complication status: with unspecified complications Qualified Code(s) : E11.8 - Type 2 diabetes mellitus with unspecified complications (5) Dyslipidemia Code(s): E78.5 - HYPERLIPIDEMIA, UNSPECIFIED Status: Chronic (6) H/O ulcerative colitis Code(s): Z87.19 - PERSONAL HISTORY OF OTHER DISEASES OF THE DIGESTIVE SYSTEM Status: Chronic (7) Obesity (BMI 30.0-34.9) Code(s): E66.9 - OBESITY, UNSPECIFIED Status: Chronic - Plan is on levaquin -: responding well to gentle hydration and antibiotics -: blood cs are -ve, urine prelim is -ve as well -: to ambulate with PT as tolerated -: home meds as before, tx to med floor * . Review of Systems - Medications/Allergies Allergies/Adverse Reactions: Allergies Allergy/AdvReac Type Severity Reaction Status Date / Time No Known Allergies Allergy Verified 09/22/17 23:05 Medications: Current Medications Acetaminophen (Tylenol) 650 mg PO Q4H PRN PRN Reason: Headache/Fever or Pain Last Admin: 01/01/18 09:40 Dose: 650 mg Dextrose/Water (Dextrose 50%) 25 gm SLOW IVP PRN PRN PRN Reason: Hypoglycemia Diphenoxylate HCl/Atropine (Lomotil) 2 tab PO QID PRN PRN Reason: Diarrhea/Loose Stools Enoxaparin Sodium (Lovenox) 40 mg SC 0900 [facility] Last Admin: 01/01/18 11:34 Dose: Not Given Glucagon (Glucagon) 1 mg IM PRN PRN PRN Reason: Hypoglycemia Guaifenesin/Dextromethorphan (Robitussin Dm) 15 ml PO Q4H PRN PRN Reason: Cough Dextrose/Water (D5w) 1,000 mls @ 0 mls/hr IV .Q0M PRN PRN Reason: Hypoglycemia Levofloxacin 500 mg/ Device 100 mls @ 100 mls/hr IVPB Q24HR [facility] Last Admin: 12/31/17 13:28 Dose: 100 mls Sodium Chloride (Normal Saline 0.9%) 1,000 mls @ 50 mls/hr IV .Q20H [facility] Last Admin: 12/31/17 13:28 Dose: 1,000 mls Insulin Human Lispro (Humalog) 0 units SC .MODERATE SLIDING SC PRN PRN Reason: Moderate Correctional Scale Mesalamine (Delzicol Dr) 2,400 mg PO QAM [facility] Last Admin: 01/01/18 09:08 Dose: 2,400 mg Pantoprazole Sodium (Protonix) 40 mg PO [facility] Last Admin: 12/31/17 20:32 Dose: 40 mg Prednisone (Prednisone) 7.5 mg PO BID-[facility] Last Admin: 01/01/18 09:06 Dose: 7.5 mg
[2018-01-01] MEDS: Sodium Chloride 0.9% 1,000 ML IV SCH (18:09)
[2018-01-02] MEDS: Acetaminophen 325 MG TAB PO PRN (05:20)
[2018-01-02] MEDS: predniSONE 5 MG TAB PO SCH (09:06)
[2018-01-02] MEDS: Mesalamine DR 400 mg Capsule PO SCH (09:07)
[2018-01-02] MEDS: Enoxaparin Sodium 40 MG/0.4 ML SYRINGE SC SCH (09:08)
--- NOTE | 2018-01-02 10:43 | PDOC.PN ---
- Subjective Encounter Start Date: 01/02/18 Encounter Start Time: 09:45 Subjective: has ambulated well with PT yesterday, no abd pain or sob -: feels better -: fully oriented and responding well to questions - Objective Resuscitation Status: Resuscitation Status FULL:Full Resuscitation MAR Reviewed: Yes Vital Signs & Weight: Vital Signs (12 hours) Temp Pulse Resp BP BP Pulse Ox 01/02/18 07:49 98.8 F 85 18 140/67 98 01/02/18 04:00 97.4 F L 70 20 140/81 94 L Weight Weight 226 lb 8 oz I&O: 01/01/18 01/02/18 01/03/18 06:59 06:59 06:59 Intake Total 845 Output Total 400 Balance 445 Result Diagrams: 01/01/18 04:52 01/01/18 04:52 Additional Labs: Accuchecks 01/02/18 01/01/18 01/01/18 05:49 20:42 16:48 POC Glucose 198 H 184 H 259 H 01/01/18 10:53 POC Glucose 143 H Phys Exam - Physical Examination HEENT: PERRLA, moist MMs Neck: no JVD, supple Respiratory: no wheezing, no rales Cardiovascular: RRR, no significant murmur Gastrointestinal: soft, non-tender, positive bowel sounds Musculoskeletal: no edema, pulses present Neurological: non-focal, moves all 4 limbs Psychiatric: normal affect, A&O x 3 Dx/Plan (1) Sepsis Code(s): A41.9 - SEPSIS, UNSPECIFIED ORGANISM Status: Resolved Qualifiers: Sepsis type: sepsis due to unspecified organism Qualified Code(s): A41.9 - Sepsis, unspecified organism (2) UTI (urinary tract infection) Status: Acute Qualifiers: Urinary tract infection type: acute cystitis Hematuria presence: without hematuria Qualified Code(s): N30.00 - Acute cystitis without hematuria (3) Adrenal insufficiency Code(s): E27.40 - UNSPECIFIED ADRENOCORTICAL INSUFFICIENCY Status: Chronic (4) DM type 2 (diabetes mellitus, type 2) Status: Chronic Qualifiers: Diabetes mellitus technician terminal and repeater insulin use: without mcfp use Diabetes mellitus complication status: with unspecified complications Qualified Code(s) : E11.8 - Type 2 diabetes mellitus with unspecified complications (5) Dyslipidemia Code(s): E78.5 - HYPERLIPIDEMIA, UNSPECIFIED Status: Chronic (6) H/O ulcerative colitis Code(s): Z87.19 - PERSONAL HISTORY OF OTHER DISEASES OF THE DIGESTIVE SYSTEM Status: Chronic (7) Obesity (BMI 30.0-34.9) Code(s): E66.9 - OBESITY, UNSPECIFIED Status: Chronic - Plan blood cs x2 no growth, urine cs is contaminated -: hemostable -: to continue levaquin x 6 days -: dc pt home -: is ambulating and eating better * .
[2018-01-02 11:40] VITALS: BP 138/78; TEMP 97.8
--- NOTE | 2018-01-02 18:01 | DIS ---
DATE OF ADMISSION: 12/31/2017 DATE OF DISCHARGE: 01/02/2018 DISCHARGE DISPOSITION: To home. PRIMARY DISCHARGE DIAGNOSES: Urinary tract infection with sepsis resolving, history of adrenal insufficiency, diabetes mellitus type 2, dyslipidemia, history of ulcerative colitis, obesity. PROCEDURES DONE DURING HOSPITALIZATION: Chest x-ray done showed no acute cardiopulmonary abnormalities. CT of the abdomen and pelvis done showed no acute abnormalities seen. Blood cultures x2 no growth. Urine culture was contaminated. Had a white count of 12.9 with 62% neutrophils on the day of admission. Discharge white count is 9. Discharge BUN and creatinine are 15 and 1.0. Admitting BUN and creatinine are 20 and 1.27. Troponin I, one set was 0.03, CK-MB 0.8. UA showed small leukoesterase, 11-20 WBCs and 1+ bacteria. DISCHARGE MEDICATIONS: Levaquin 500 mg p.o. daily for 5 days, Protonix 40 mg p.o. at bedtime, prednisone home dose 7.5 mg twice daily, mesalamine 1.2 grams 2 tablets p.o. q.a.m., Lantus 45 units subcu q.p.m., Humalog as before. ALLERGIES: No known drug allergies. DISCHARGE PLAN: Patient to follow up with primary care physician in 1 week. BRIEF COURSE DURING HOSPITALIZATION: Patient initially was brought to emergency room after he developed shortness of breath and was not himself. He was feeling weak. At home, he had a temperature of 101-102.3 degrees. He was essentially admitted for sepsis and urinary tract infection. Martins cultures were obtained. Blood cultures x2 have not grown any organism. Urine culture was contaminated. He was placed on Levaquin and gentle hydration for which he has responded well. The patient also was mildly dehydrated as he was out in the sun prior to arrival. He has otherwise remained hemodynamically stable and has ambulated nearly 200 feet with physical therapy. His is fully oriented and alert prior to discharge. Please see a [id number] documentation for the day of discharge on [employer]. [facility]
--- NOTE | 2018-01-04 13:30 | EKG ---
Test Reason : Blood Pressure : / mmHG Vent. Rate : 107 BPM Atrial Rate : 107 BPM P-R Int : 182 ms QRS Dur : 114 ms QT Int : 332 ms P-R-T Axes : -03 004 017 degrees QTc Int : 443 ms Sinus tachycardia Right bundle branch block No STEMI Abnormal ECG Confirmed by JEOVANY Coffey, FRANCISCA ([id number]), content editor THONY PHILLIPS ([id number]) on 01/04/2018 1:29:39 PM Referred By: Confirmed By:FRANCISCA THAYER M.D.
== END 2018-01-02 13:22 | disposition home or self-care (01) | DRG 872 ==
LOC: ERS 23:10 → T4-B 12-31 04:35 → 2NO 12-31 05:26
PROVIDERS: ADMIT Internal Medicine Infectious Disease; ATTEND Internal Medicine Infectious Disease
DX: A41.9 Sepsis, unspecified organism (principal); N39.0 Urinary tract infection, site not specified; E27.40 Unspecified adrenocortical insufficiency; K51.90 Ulcerative colitis, unspecified, without complications; E11.9 Type 2 diabetes mellitus without complications; E78.5 Hyperlipidemia, unspecified; E66.9 Obesity, unspecified; Z68.32 Body mass index [BMI] 32.0-32.9, adult; Z87.19 Personal history of other diseases of the digestive system
CPT/HCPCS: 36415; 36416; 71045; 74177; 80048; 80053; 81003; 81015; 82330; 82435; 82553; 82803; 83605; 83690; 84132; 84295; 84484; 85014; 85025; 87040; 87086; 93005; 94760; 96365; 96367; G8978-GP-CJ; G8979-GP-CI; G8987-GO-CI; G8988-GO-CI; G8989-GO-CI; J1650; J1956; J2543; J3370; J7050

== ENCOUNTER 2019-03-08 10:47 | Day surgery (SDC) | payer MEDICARE ==
[~2019-03-08 10:47] MED LIST changes: +Acetaminophen 500 MG TAB PO PRN; +Acetaminophen 500 MG TAB PO SCH; -ISOVUE-370 76%-LOCM 1 ML ONE; +Sodium Chloride 0.9% 1,000 ML IV SCH; +Vedolizumab 300 MG in Sodium Chloride 0.9% 250 ML 250 ML IVPB SCH
[2019-03-08] MEDS ORDERED: Sodium Chloride 0.9% 20 ML ONE (10:59)
[2019-03-08 11:01] VITALS: BP 155/74; TEMP 98
== END 2019-03-08 14:09 | disposition home or self-care (01) ==
LOC: ONC/OP 10:47
PROVIDERS: ATTEND Internal Medicine Gastroenterology
DX: K51.90 Ulcerative colitis, unspecified, without complications (principal); Z79.2 Long term (current) use of antibiotics; Z79.4 Long term (current) use of insulin; Z79.52 Long term (current) use of systemic steroids; Z79.899 Other long term (current) drug therapy; Z88.8 Allergy status to other drugs, medicaments and biological substances; Z91.048 Other nonmedicinal substance allergy status
CPT/HCPCS: 96413; J3380; J7050

== ENCOUNTER 2019-04-24 10:19 | Day surgery (SDC) | payer MEDICARE ==
[2019-04-24 11:35] VITALS: BP 152/67; TEMP 97.6
== END 2019-04-24 12:35 | disposition home or self-care (01) ==
LOC: ONC/OP 10:19
PROVIDERS: ATTEND Internal Medicine Gastroenterology
DX: K51.90 Ulcerative colitis, unspecified, without complications (principal); Z88.8 Allergy status to other drugs, medicaments and biological substances; Z91.048 Other nonmedicinal substance allergy status
CPT/HCPCS: 96413; J3380; J7050

== ENCOUNTER 2019-06-05 10:49 | Day surgery (SDC) | payer MEDICARE ==
[2019-06-05] MEDS ORDERED: Sodium Chloride 0.9% 20 ML ONE ×2 (10:50→10:58)
[2019-06-05] MEDS ORDERED: Sodium Chloride 0.9% 10 ML ONE (11:36)
[2019-06-05 12:24] VITALS: BP 178/75; TEMP 97.5
== END 2019-06-05 12:41 | disposition home or self-care (01) ==
LOC: ONC/OP 10:49
PROVIDERS: ATTEND Internal Medicine Gastroenterology
DX: K51.90 Ulcerative colitis, unspecified, without complications (principal); Z88.8 Allergy status to other drugs, medicaments and biological substances; Z91.048 Other nonmedicinal substance allergy status
CPT/HCPCS: 96413

== ENCOUNTER 2019-07-17 10:44 | Day surgery (SDC) | payer MEDICARE ==
[2019-07-17] MEDS ORDERED: Sodium Chloride 0.9% 20 ML ONE (10:47)
[2019-07-17 11:58] VITALS: BP 162/80; TEMP 98.4
== END 2019-07-17 12:11 | disposition home or self-care (01) ==
LOC: ONC/OP 10:44
PROVIDERS: ATTEND Internal Medicine Gastroenterology
DX: K51.90 Ulcerative colitis, unspecified, without complications (principal); Z88.8 Allergy status to other drugs, medicaments and biological substances; Z91.048 Other nonmedicinal substance allergy status
CPT/HCPCS: 96413

== ENCOUNTER 2019-08-28 10:51 | Day surgery (SDC) | payer MEDICARE ==
[2019-08-28] MEDS ORDERED: Sodium Chloride 0.9% 20 ML ONE ×2 (10:58→11:12)
[2019-08-28 11:57] VITALS: BP 139/78; TEMP 97.7
== END 2019-08-28 12:07 | disposition home or self-care (01) ==
LOC: ONC/OP 10:51
PROVIDERS: ATTEND Internal Medicine Gastroenterology
DX: K51.90 Ulcerative colitis, unspecified, without complications (principal); Z88.8 Allergy status to other drugs, medicaments and biological substances; Z91.048 Other nonmedicinal substance allergy status
CPT/HCPCS: 96413; J1642

== ENCOUNTER 2019-10-09 10:24 | Day surgery (SDC) | payer MEDICARE ==
[2019-10-09] MEDS ORDERED: Sodium Chloride 0.9% 20 ML ONE (10:32)
[2019-10-09 10:51] VITALS: BP 173/84; TEMP 98.1
== END 2019-10-09 12:13 | disposition home or self-care (01) ==
LOC: ONC/OP 10:24
PROVIDERS: ATTEND Internal Medicine Gastroenterology
DX: K51.90 Ulcerative colitis, unspecified, without complications (principal); Z88.8 Allergy status to other drugs, medicaments and biological substances; Z91.048 Other nonmedicinal substance allergy status
CPT/HCPCS: 96413

== ENCOUNTER 2019-10-28 12:43 | Day surgery (SDC) | payer MEDICARE ==
[2019-10-28] MEDS ORDERED: Acetaminophen 500 MG TAB PO PRN ×2 (12:51→12:53)
[2019-10-28] MEDS ORDERED: Vedolizumab 300 MG in Sodium Chloride 0.9% 250 ML 250 ML IVPB SCH (13:00)
[2019-10-28 13:37] VITALS: BP 172/105; TEMP 98.5
== END 2019-10-28 14:53 | disposition home or self-care (01) ==
LOC: ONC/OP 12:43
PROVIDERS: ATTEND Internal Medicine Gastroenterology
DX: K51.90 Ulcerative colitis, unspecified, without complications (principal); Z88.8 Allergy status to other drugs, medicaments and biological substances; Z91.048 Other nonmedicinal substance allergy status
CPT/HCPCS: 96413; J3380; J7050

== ENCOUNTER 2019-11-11 12:38 | Day surgery (SDC) | payer MEDICARE ==
[2019-11-11] MEDS ORDERED: Sodium Chloride 0.9% 20 ML ONE (12:39)
[2019-11-11 12:58] VITALS: BP 155/72; TEMP 97.9
== END 2019-11-11 13:50 | disposition home or self-care (01) ==
LOC: ONC/OP 12:38
PROVIDERS: ATTEND Internal Medicine Gastroenterology
DX: K51.90 Ulcerative colitis, unspecified, without complications (principal); Z88.8 Allergy status to other drugs, medicaments and biological substances; Z91.048 Other nonmedicinal substance allergy status
CPT/HCPCS: 96413; J3380; J7050

== ENCOUNTER 2019-11-25 12:57 | Day surgery (SDC) | payer MEDICARE ==
[2019-11-25] MEDS ORDERED: Sodium Chloride 0.9% 20 ML ONE (13:36)
[2019-11-25 13:44] VITALS: BP 157/72; TEMP 97.7
== END 2019-11-25 14:41 | disposition home or self-care (01) ==
LOC: ONC/OP 12:57
PROVIDERS: ATTEND Internal Medicine Gastroenterology
DX: K51.90 Ulcerative colitis, unspecified, without complications (principal); Z88.8 Allergy status to other drugs, medicaments and biological substances; Z91.048 Other nonmedicinal substance allergy status
CPT/HCPCS: 96413; J3380; J7050

== ENCOUNTER 2020-01-21 13:55 | Day surgery (SDC) | payer MEDICARE ==
[2020-01-21] MEDS ORDERED: Acetaminophen 500 MG TAB PO PRN ×2 (14:03)
[2020-01-21] MEDS ORDERED: Vedolizumab 300 MG in Sodium Chloride 0.9% 250 ML 250 ML IVPB SCH (14:15)
[2020-01-21 14:53] VITALS: BP 197/83; TEMP 97.8
== END 2020-01-21 15:07 | disposition home or self-care (01) ==
LOC: ONC/OP 13:55
PROVIDERS: ATTEND Internal Medicine Gastroenterology
DX: K51.90 Ulcerative colitis, unspecified, without complications (principal); Z79.4 Long term (current) use of insulin; Z79.52 Long term (current) use of systemic steroids; Z79.899 Other long term (current) drug therapy; Z88.8 Allergy status to other drugs, medicaments and biological substances; Z91.048 Other nonmedicinal substance allergy status
CPT/HCPCS: 96413; J3380; J7050

== ENCOUNTER 2020-01-24 09:56 | Emergency (ER) | payer MEDICARE ==
--- NOTE | 2020-01-24 10:45 | RAD ---
XR Chest 1 View Portable HISTORY: Chest pain, nausea, vomiting COMPARISON: 12/30/2017 FINDINGS: The heart size is prominent but stable. There is evidence of old granulomatous disease. Inc reased density in the left lung base is stable and consistent with epicardial fat pad seen on the CT scan of 12/31/2017. No lobar consolidation, pneumothoraces, yeison pulmonary edema or pleural effusi ons are seen. IMPRESSION: No radiographic evidence of acute cardiopulmonary process.
[2020-01-24 10:56] LABS: #Basophils 0.2 thou/uL (0.0-0.2); #Lymphocytes 1.7 thou/uL (1.20-3.40); #Monocytes 0.6 thou/uL (0.11-0.59); #Neutrophils 8.3 thou/uL (1.40-6.50); %Basophils 1.8 % (0.0-1.0); %Eosinophils 0.4 % (0.0-10.0); %Monocytes 5.1 % (0.0-10.0); %Neutrophils 76.7 % (42.0-75.0); Hemoglobin 10.8 g/dL (14.0-18.0); Mean Corpuscular HGB CONC 30.1 g/dL (32.0-36.0); Mean Corpuscular Volume 79.9 fL (78.0-98.0); Mean Platelet Volume 8.2 fL (7.4-10.4); Platelet Count 323 thou/uL (130-400); RBC Distribution Width 16.5 % (11.5-14.5); Red Blood Cell (RBC) Count 4.48 mill/uL (4.70-6.10); White Blood Cell (WBC) Count 10.8 thou/uL (4.8-10.8)
[2020-01-24 11:17] LABS: ALT (SGPT) 14 U/L (8-55); AST (SGOT) 12 U/L (5-34); Albumin 3.9 g/dL (3.4-4.8); Alkaline Phosphatase 62 U/L (40-110); Anion Gap 15 mmol/L (10-20); BUN (Urea Nitrogen) 19 mg/dL (8.4-25.7); Bilirubin, Total 0.5 mg/dL (0.2-1.2); Calc. Creatinine Clearance 0 mL/min (70-130); Calcium 8.4 mg/dL (7.8-10.44); Carbon Dioxide 21 mmol/L (23-31); Chloride 107 mmol/L (98-107); Estimated GFR-MDRD 62; Globulin 2.6 g/dL (2.4-3.5); Glucose 112 mg/dL (83-110); Potassium 3.7 mmol/L (3.5-5.1); Protein, Total 6.5 g/dL (5.8-8.1); Sodium 139 mmol/L (136-145)
--- NOTE | 2020-01-25 11:13 | EKG ---
Test Reason : ABD PAIN Blood Pressure : / mmHG Vent. Rate : 070 BPM Atrial Rate : 070 BPM P-R Int : 218 ms QRS Dur : 124 ms QT Int : 398 ms P-R-T Axes : -18 -08 054 degrees QTc Int : 429 ms Sinus rhythm with marked sinus arrhythmia with 1st degree A-V block Right bundle branch block Abnormal ECG Confirmed by AME SPEARS MD ([id number]), clinical editor GRACE MCINTOSH ([id number]) on 01/25/2020 11:13:39 AM Referred By: REGAN Confirmed By:AME SPEARS MD
== END 2020-01-24 13:37 | disposition home or self-care (01) ==
LOC: ERS 09:56
DX: I20.8 Other forms of angina pectoris (principal); I10 Essential (primary) hypertension; K51.90 Ulcerative colitis, unspecified, without complications; E11.9 Type 2 diabetes mellitus without complications; E78.5 Hyperlipidemia, unspecified; E78.00 Pure hypercholesterolemia, unspecified; Z79.4 Long term (current) use of insulin; Z79.899 Other long term (current) drug therapy
CPT/HCPCS: 71045; 80053; 83880; 84484; 85025; 93005

== ENCOUNTER 2020-02-20 13:55 | Day surgery (SDC) | payer MEDICARE | END 2020-02-20 15:36 | disposition home or self-care (01) | LOC: ONC/OP 13:55 | PROVIDERS: ATTEND Internal Medicine Gastroenterology | DX: K51.90 Ulcerative colitis, unspecified, without complications (principal); Z88.8 Allergy status to other drugs, medicaments and biological substances; Z91.048 Other nonmedicinal substance allergy status | CPT/HCPCS: 96413; J3380; J7050 ==

== ENCOUNTER 2020-03-26 13:41 | Day surgery (SDC) | payer MEDICARE ==
[2020-03-26] MEDS ORDERED: Sodium Chloride 0.9% 20 ML ONE (14:25)
== END 2020-03-26 15:54 | disposition home or self-care (01) ==
LOC: ONC/OP 13:41
PROVIDERS: ATTEND Internal Medicine Gastroenterology
DX: K51.90 Ulcerative colitis, unspecified, without complications (principal); Z88.8 Allergy status to other drugs, medicaments and biological substances; Z91.048 Other nonmedicinal substance allergy status
CPT/HCPCS: 96413; J3380; J7050

== ENCOUNTER 2020-05-05 12:50 | Day surgery (SDC) | payer MEDICARE ==
[2020-05-05] MEDS ORDERED: Sodium Chloride 0.9% 20 ML ONE (13:32)
== END 2020-05-05 15:37 | disposition home or self-care (01) ==
LOC: ONC/OP 12:50
PROVIDERS: ATTEND Internal Medicine Gastroenterology
DX: K51.90 Ulcerative colitis, unspecified, without complications (principal); Z88.8 Allergy status to other drugs, medicaments and biological substances; Z91.048 Other nonmedicinal substance allergy status
CPT/HCPCS: 96413; J3380; J7050

== ENCOUNTER 2020-06-16 13:54 | Day surgery (SDC) | payer MEDICARE ==
[2020-06-16 14:10] VITALS: BP 162/74; TEMP 97.6
== END 2020-06-16 15:27 | disposition home or self-care (01) ==
LOC: ONC/OP 13:54
PROVIDERS: ATTEND Internal Medicine Gastroenterology
DX: K51.90 Ulcerative colitis, unspecified, without complications (principal); Z88.8 Allergy status to other drugs, medicaments and biological substances; Z91.048 Other nonmedicinal substance allergy status
CPT/HCPCS: 96413; J3380; J7050

== ENCOUNTER → 2020-07-21 | Day surgery (SDC) | payer MEDICARE ==
[2020-07-21 14:46] VITALS: BP 132/65; TEMP 97.9
== END ==
LOC: ONC/OP 13:56
PROVIDERS: ATTEND Internal Medicine Gastroenterology
DX: K51.90 Ulcerative colitis, unspecified, without complications (principal); Z88.8 Allergy status to other drugs, medicaments and biological substances; Z91.048 Other nonmedicinal substance allergy status
CPT/HCPCS: 96413; J3380; J7050

== ENCOUNTER 2020-08-19 21:45 | Inpatient (IN) | payer MEDICARE ==
[~2020-08-19 21:45] MED LIST changes: -Acetaminophen 500 MG TAB PO PRN; -Acetaminophen 500 MG TAB PO SCH; +Iopamidol-370 76% 500 ML 1 ML ONE; -Sodium Chloride 0.9% 1,000 ML IV SCH; -Vedolizumab 300 MG in Sodium Chloride 0.9% 250 ML 250 ML IVPB SCH
[2020-08-19] MEDS ORDERED: Hydrocortisone Sod Succ/PF 100 mg/2 ml Vial ONE (22:32)
[2020-08-19] MEDS ORDERED: Fentanyl 100 MCG/2 ML VIAL ONE ×2 (22:33→22:34)
[2020-08-19] MEDS ORDERED: Ondansetron PF 4 MG/2 ML Vial ONE (22:33)
[2020-08-19 23:14] LABS: Hemoglobin 9.9 g/dL (14.0-18.0); Mean Corpuscular Volume 76.6 fL (78.0-98.0); RBC Distribution Width 17.3 % (11.5-14.5); Red Blood Cell (RBC) Count 4.29 mill/uL (4.70-6.10)
[2020-08-19 23:25] LABS: ALT (SGPT) 9 U/L (8-55); AST (SGOT) 15 U/L (5-34); Albumin 3.3 g/dL (3.4-4.8); Alkaline Phosphatase 71 U/L (40-110); Anion Gap 18 mmol/L (10-20); BUN (Urea Nitrogen) 17 mg/dL (8.4-25.7); Bilirubin, Total 0.6 mg/dL (0.2-1.2); Calc. Creatinine Clearance 0 mL/min (70-130); Calcium 8.1 mg/dL (7.8-10.44); Carbon Dioxide 16 mmol/L (23-31); Chloride 111 mmol/L (98-107); Globulin 3.2 g/dL (2.4-3.5); Glucose 89 mg/dL (83-110); Potassium 3.7 mmol/L (3.5-5.1); Protein, Total 6.5 g/dL (5.8-8.1); Sodium 141 mmol/L (136-145)
[2020-08-19 23:37] LABS: #Basophils 0.1 thou/uL (0.0-0.2); #Eosinphils 0.1 thou/uL (0.0-0.7); #Lymphocytes 4.2 thou/uL (1.20-3.40); #Monocytes 1.9 thou/uL (0.11-0.59); #Neutrophils 12.2 thou/uL (1.40-6.50); %Basophils 0.4 % (0.0-1.0); %Eosinophils 0.8 % (0.0-10.0); %Lymphocytes 22.7 % (21.0-51.0); %Monocytes 10.3 % (0.0-10.0); %Neutrophils 65.9 % (42.0-75.0); Anisocytosis SLIGHT = 6-15 cells (100X) (0-5/hpf); MDiff Complete? YES; Mean Platelet Volume 8.3 fL (7.4-10.4); Platelet Count 376 thou/uL (130-400); White Blood Cell (WBC) Count 18.5 thou/uL (4.8-10.8)
[2020-08-20 00:53] LABS: Bacteria/HPF None Seen HPF (None Seen); Bilirubin Negative (Negative); Blood, Urine Trace (Negative); Clarity Clear (Clear); Glucose, Urine (Dipstick) Normal (Negative); Ketone, Urine 20 mg/dL (Negative); Leukocyte Negative Leu/uL (Negative); Nitrite Negative (Negative); Protein, Urine (Dipstick) 30 mg/dL (Neg-Trace); RBC/HPF 0-3 HPF (0-3); Specific Gravity, Urine 1.027 (1.002-1.036); Squamous Epithelial None Seen HPF (0-3); Urobilinogen Normal mg/dL (Less than 2); WBC/HPF 0-3 HPF (0-3)
[2020-08-20] MEDS ORDERED: Acetaminophen 500 MG TAB ONE (03:17)
[2020-08-20 03:38] LABS: SARS-CoV-2 NAA Rapid Test Not Detected (NotDetected)
[2020-08-20] MEDS: Vancomycin HCl 25 MG/ML Oral PO SCH ×3 (05:54→19:14)
[2020-08-20] MEDS: Sodium Chloride 0.9% 1,000 ML IV SCH ×3 (05:54→19:15)
[2020-08-20] MEDS ORDERED: HumaLOG 300 UNITS/3 ML VIAL SC PRN (06:31)
[2020-08-20] MEDS ORDERED: Dextrose 50% Abboject 50 ML SYRINGE SLOW IVP PRN (06:31)
[2020-08-20] MEDS ORDERED: Dextrose 5% in Water 1,000 ML IV PRN (06:31)
[2020-08-20] MEDS ORDERED: Enoxaparin Sodium 40 MG/0.4 ML SYRINGE SC SCH (09:00)
[2020-08-20] MEDS: Aspirin 81 mg Enteric Coated Tablet PO SCH (10:07)
[2020-08-20] MEDS: Hydrocortisone Sod Succ/PF 100 mg/2 ml Vial IVP SCH ×3 (10:07→21:29)
[2020-08-20 10:08] LABS: #Lymphocytes 4.1 thou/uL (1.20-3.40); #Monocytes 1.1 thou/uL (0.11-0.59); #Neutrophils 9.8 thou/uL (1.40-6.50); %Basophils 0.2 % (0.0-1.0); %Eosinophils 0.3 % (0.0-10.0); %Lymphocytes 27.4 % (21.0-51.0); %Monocytes 7.1 % (0.0-10.0); %Neutrophils 65.1 % (42.0-75.0); Hemoglobin 9.5 g/dL (14.0-18.0); Mean Corpuscular HGB CONC 30.5 g/dL (32.0-36.0); Mean Corpuscular Hemoglobin 23.5 pg (27.0-31.0); Mean Corpuscular Volume 77.2 fL (78.0-98.0); Mean Platelet Volume 8.5 fL (7.4-10.4); Platelet Count 339 thou/uL (130-400); RBC Distribution Width 17.2 % (11.5-14.5); Red Blood Cell (RBC) Count 4.05 mill/uL (4.70-6.10)
[2020-08-20] MEDS: HYDROcodone/Acetaminophen 5/325 mg Tablet PO PRN (10:20)
[2020-08-20 10:21] LABS: Lactic Acid 1.2 mmol/L (0.5-2.2)
[2020-08-20 11:02] LABS: CKMB 12.7 ng/mL (0-6.6)
[2020-08-20 12:09] LABS: ALT (SGPT) 11 U/L (8-55); AST (SGOT) 28 U/L (5-34); Albumin 3.1 g/dL (3.4-4.8); Alkaline Phosphatase 63 U/L (40-110); Anion Gap 14 mmol/L (10-20); BUN (Urea Nitrogen) 17 mg/dL (8.4-25.7); Bilirubin, Total 0.5 mg/dL (0.2-1.2); Calc. Creatinine Clearance 78 mL/min (70-130); Calcium 8.1 mg/dL (7.8-10.44); Carbon Dioxide 20 mmol/L (23-31); Chloride 111 mmol/L (98-107); Glucose 99 mg/dL (83-110); Magnesium 1.6 mg/dL (1.6-2.6); Phosphorus 3.4 mg/dL (2.3-4.7); Potassium 3.7 mmol/L (3.5-5.1); Protein, Total 6.1 g/dL (5.8-8.1); Sodium 141 mmol/L (136-145)
[2020-08-20 13:17] LABS: Critical Call Chem Troponin I RESULT DECREASING
[2020-08-20] MEDS ORDERED: Loperamide HCl 2 MG CAP PO PRN (21:15)
[2020-08-20] MEDS: Loperamide HCl 2 MG CAP PO PRN (21:23)
[2020-08-20] MEDS: HumaLOG 300 UNITS/3 ML VIAL SC PRN (21:59)
[2020-08-21] MEDS: HYDROcodone/Acetaminophen 5/325 mg Tablet PO PRN ×2 (00:19→06:36)
[2020-08-21] MEDS: Sodium Chloride 0.9% 1,000 ML IV SCH ×2 (00:21→14:31)
[2020-08-21] MEDS: Vancomycin HCl 25 MG/ML Oral PO SCH ×4 (00:26→17:05)
[2020-08-21] MEDS: Hydrocortisone Sod Succ/PF 100 mg/2 ml Vial IVP SCH ×4 (03:35→21:21)
[2020-08-21] MEDS: Acetaminophen 325 MG TAB PO PRN (03:41)
[2020-08-21 04:34] LABS: #Lymphocytes 1.9 thou/uL (1.20-3.40); #Monocytes 0.6 thou/uL (0.11-0.59); #Neutrophils 10.2 thou/uL (1.40-6.50); %Basophils 0.2 % (0.0-1.0); %Eosinophils 0.1 % (0.0-10.0); %Lymphocytes 14.9 % (21.0-51.0); %Monocytes 4.8 % (0.0-10.0); %Neutrophils 79.9 % (42.0-75.0); Hemoglobin 8.5 g/dL (14.0-18.0); Mean Corpuscular HGB CONC 30.2 g/dL (32.0-36.0); Mean Corpuscular Hemoglobin 23.3 pg (27.0-31.0); Mean Corpuscular Volume 77.1 fL (78.0-98.0); Mean Platelet Volume 8.5 fL (7.4-10.4); Platelet Count 324 thou/uL (130-400); Red Blood Cell (RBC) Count 3.66 mill/uL (4.70-6.10); White Blood Cell (WBC) Count 12.8 thou/uL (4.8-10.8)
[2020-08-21 05:02] LABS: ALT (SGPT) 10 U/L (8-55); AST (SGOT) 23 U/L (5-34); Albumin 2.7 g/dL (3.4-4.8); Alkaline Phosphatase 55 U/L (40-110); Anion Gap 12 mmol/L (10-20); BUN (Urea Nitrogen) 19 mg/dL (8.4-25.7); Bilirubin, Total 0.2 mg/dL (0.2-1.2); Calc. Creatinine Clearance 82 mL/min (70-130); Calcium 7.5 mg/dL (7.8-10.44); Carbon Dioxide 18 mmol/L (23-31); Cardiac Risk 3.5 (Less than 4.5); Chloride 113 mmol/L (98-107); Cholesterol 145 mg/dl (< 200 Desired); Globulin 2.8 g/dL (2.4-3.5); Glucose 273 mg/dL (83-110); HDL Cholesterol 41 mg/dL (>60 Neg Risk); LDL Cholesterol, Calculated 86 mg/dL; Magnesium 1.5 mg/dL (1.6-2.6); Phosphorus 1.7 mg/dL (2.3-4.7); Potassium 3.9 mmol/L (3.5-5.1); Protein, Total 5.5 g/dL (5.8-8.1); Sodium 139 mmol/L (136-145); Triglycerides 90 mg/dL (Less than 150)
[2020-08-21] MEDS ORDERED: Magnesium 2 GM/50 ML 2 GM in Premix Bag 1 BAG IVPB SCH (06:00)
[2020-08-21] MEDS ORDERED: Electrolyte Replacement Protocol FS PRN (06:00)
[2020-08-21] MEDS ORDERED: Potassium Phosphate 15 MMOL in Sodium Chloride 0.9% 100 ML IVPB SCH (06:30)
[2020-08-21] MEDS ORDERED: Adenosine 6 MG/2 ML VIAL ONE (07:31)
[2020-08-21] MEDS ORDERED: Verapamil 5 MG/2 ML VIAL ONE (07:31)
[2020-08-21] MEDS ORDERED: Heparin 10,000 UNITS/ 10 ML VIAL ONE (07:31)
[2020-08-21] MEDS ORDERED: Lidocaine 1% (PF) 30 ML VIAL ONE (07:32)
[2020-08-21] MEDS ORDERED: Nitroglycerin 100MG/250ML BOT 250 ML ONE (07:32)
[2020-08-21] MEDS ORDERED: Fentanyl 100 MCG/2 ML VIAL ONE (08:36)
[2020-08-21] MEDS ORDERED: Midazolam HCl 2 mg/2 ml Vial ONE ×2 (08:37→08:38)
[2020-08-21] MEDS ORDERED: Iopamidol 370 76% 100 ML VIAL ONE (09:27)
[2020-08-21] MEDS ORDERED: Nitroglycerin 0.4 MG TAB (25 Tab Bottle) SL PRN (10:53)
[2020-08-21] MEDS ORDERED: Acetaminophen/Codeine 30-300mg Tablet PO PRN ×2 (10:53)
[2020-08-21] MEDS ORDERED: Sodium Chloride 0.9% 200 ML IV PRN (10:53)
[2020-08-21] MEDS ORDERED: Sodium Chloride 0.9% 1,000 ML IV SCH (11:00)
[2020-08-21] MEDS: Aspirin 81 mg Enteric Coated Tablet PO SCH (11:08)
[2020-08-21] MEDS: HumaLOG 300 UNITS/3 ML VIAL SC PRN ×2 (11:30→17:04)
[2020-08-21] MEDS: Losartan 25 MG TAB PO SCH (14:44)
[2020-08-21] MEDS ORDERED: HumaLOG 300 UNITS/3 ML VIAL SC PRN (21:31)
[2020-08-22] MEDS: Vancomycin HCl 25 MG/ML Oral PO SCH ×4 (00:50→16:57)
[2020-08-22] MEDS: Hydrocortisone Sod Succ/PF 100 mg/2 ml Vial IVP SCH ×4 (02:31→20:25)
[2020-08-22 05:19] LABS: Magnesium 2.1 mg/dL (1.6-2.6)
[2020-08-22 05:22] LABS: Phosphorus 1.8 mg/dL (2.3-4.7)
[2020-08-22] MEDS: HumaLOG 300 UNITS/3 ML VIAL SC PRN ×3 (05:47→18:32)
[2020-08-22] MEDS: PHOS-NAK 1 PKT PACK PO SCH ×2 (06:13→09:06)
[2020-08-22] MEDS: Aspirin 81 mg Enteric Coated Tablet PO SCH (07:50)
[2020-08-22] MEDS: Nystatin Powder 15 GM BOT TOP SCH ×2 (07:51→20:26)
[2020-08-22 08:06] VITALS: BMI 34.1
[2020-08-22] MEDS: Losartan 25 MG TAB PO SCH (09:12)
[2020-08-22] MEDS: Lantus 1000 UNITS/10 ML VIAL SC SCH (20:32)
[2020-08-23] MEDS: Hydrocortisone Sod Succ/PF 100 mg/2 ml Vial IVP SCH ×3 (02:02→15:15)
[2020-08-23] MEDS: Vancomycin HCl 25 MG/ML Oral PO SCH ×4 (05:03→17:55)
[2020-08-23] MEDS: Acetaminophen 325 MG TAB PO PRN ×2 (05:03→11:48)
[2020-08-23 05:10] LABS: Hemoglobin 9.4 g/dL (14.0-18.0); Platelet Count 386 thou/uL (130-400)
[2020-08-23 05:29] LABS: Anion Gap 15 mmol/L (10-20); BUN (Urea Nitrogen) 20 mg/dL (8.4-25.7); Calc. Creatinine Clearance 109 mL/min (70-130); Carbon Dioxide 20 mmol/L (23-31); Chloride 111 mmol/L (98-107); Glucose 209 mg/dL (83-110); Potassium 3.8 mmol/L (3.5-5.1); Sodium 142 mmol/L (136-145)
[2020-08-23] MEDS: HumaLOG 300 UNITS/3 ML VIAL SC PRN ×3 (05:58→17:55)
[2020-08-23] MEDS: Aspirin 81 mg Enteric Coated Tablet PO SCH (09:10)
[2020-08-23] MEDS: Nystatin Powder 15 GM BOT TOP SCH ×2 (09:11→20:57)
[2020-08-23] MEDS: Losartan 25 MG TAB PO SCH (15:16)
[2020-08-23] MEDS: metFORMIN 500 MG TAB PO SCH (20:56)
[2020-08-23] MEDS: Lantus 1000 UNITS/10 ML VIAL SC SCH (20:56)
[2020-08-24] MEDS: Vancomycin HCl 25 MG/ML Oral PO SCH ×5 (00:22→23:59)
[2020-08-24] MEDS: Acetaminophen 325 MG TAB PO PRN ×2 (02:16→09:13)
[2020-08-24] MEDS: Hydrocortisone Sod Succ/PF 100 mg/2 ml Vial IVP SCH ×2 (02:17→16:17)
[2020-08-24] MEDS: Aspirin 81 mg Enteric Coated Tablet PO SCH (09:07)
[2020-08-24] MEDS: Nystatin Powder 15 GM BOT TOP SCH ×2 (09:07→21:28)
[2020-08-24] MEDS: metFORMIN 500 MG TAB PO SCH ×2 (09:07→21:21)
[2020-08-24] MEDS: Carvedilol 3.125 MG TAB PO SCH ×2 (09:13→21:20)
[2020-08-24] MEDS: HumaLOG 300 UNITS/3 ML VIAL SC PRN (12:39)
[2020-08-24] MEDS: Losartan 25 MG TAB PO SCH (16:19)
[2020-08-24] MEDS: Cholestyramine/Aspartame 4 gm Packet PO SCH (21:21)
[2020-08-24] MEDS: Lantus 1000 UNITS/10 ML VIAL SC SCH (21:22)
[2020-08-25] MEDS: Hydrocortisone Sod Succ/PF 100 mg/2 ml Vial IVP SCH ×2 (03:02→14:44)
[2020-08-25 05:23] LABS: #Eosinphils 0.2 thou/uL (0.0-0.7); #Lymphocytes 3.1 thou/uL (1.20-3.40); #Monocytes 0.6 thou/uL (0.11-0.59); #Neutrophils 5.9 thou/uL (1.40-6.50); %Basophils 0.1 % (0.0-1.0); %Eosinophils 1.8 % (0.0-10.0); %Lymphocytes 31.4 % (21.0-51.0); %Monocytes 6.3 % (0.0-10.0); %Neutrophils 60.5 % (42.0-75.0); Hemoglobin 8.8 g/dL (14.0-18.0); Mean Corpuscular HGB CONC 32.1 g/dL (32.0-36.0); Mean Corpuscular Hemoglobin 24.7 pg (27.0-31.0); Mean Corpuscular Volume 77.1 fL (78.0-98.0); Mean Platelet Volume 8.2 fL (7.4-10.4); Platelet Count 329 thou/uL (130-400); RBC Distribution Width 17.3 % (11.5-14.5); Red Blood Cell (RBC) Count 3.54 mill/uL (4.70-6.10); White Blood Cell (WBC) Count 9.7 thou/uL (4.8-10.8)
[2020-08-25] MEDS: Vancomycin HCl 25 MG/ML Oral PO SCH ×4 (05:32→23:53)
[2020-08-25 05:44] LABS: Anion Gap 11 mmol/L (10-20); BUN (Urea Nitrogen) 20 mg/dL (8.4-25.7); Calc. Creatinine Clearance 106 mL/min (70-130); Calcium 7.7 mg/dL (7.8-10.44); Carbon Dioxide 25 mmol/L (23-31); Chloride 108 mmol/L (98-107); Glucose 111 mg/dL (83-110); Potassium 3.3 mmol/L (3.5-5.1); Sodium 141 mmol/L (136-145)
[2020-08-25] MEDS ORDERED: Potassium Chloride 20 MEQ TAB PO SCH (06:30)
[2020-08-25] MEDS: Aspirin 81 mg Enteric Coated Tablet PO SCH (08:55)
[2020-08-25] MEDS: Carvedilol 3.125 MG TAB PO SCH ×2 (08:55→20:59)
[2020-08-25] MEDS: Cholestyramine/Aspartame 4 gm Packet PO SCH ×2 (08:55→20:59)
[2020-08-25] MEDS: Losartan 25 MG TAB PO SCH (08:55)
[2020-08-25] MEDS: Furosemide 20 MG TAB PO SCH (08:55)
[2020-08-25] MEDS: metFORMIN 500 MG TAB PO SCH ×2 (08:55→20:59)
[2020-08-25] MEDS: Nystatin Powder 15 GM BOT TOP SCH ×2 (08:56→21:00)
[2020-08-25] MEDS: HumaLOG 300 UNITS/3 ML VIAL SC PRN ×2 (11:37→18:15)
[2020-08-25] MEDS: Loperamide HCl 2 MG CAP PO PRN (14:47)
[2020-08-25] MEDS: Mag-Al 1200 mg/1200 mg/30 ML UDCUP PO PRN (16:14)
[2020-08-25] MEDS: Lantus 1000 UNITS/10 ML VIAL SC SCH (21:03)
[2020-08-26] MEDS: Hydrocortisone Sod Succ/PF 100 mg/2 ml Vial IVP SCH ×2 (06:33→15:06)
[2020-08-26] MEDS: Vancomycin HCl 25 MG/ML Oral PO SCH ×3 (06:34→17:59)
[2020-08-26] MEDS: Aspirin 81 mg Enteric Coated Tablet PO SCH (08:50)
[2020-08-26] MEDS: Carvedilol 3.125 MG TAB PO SCH (08:50)
[2020-08-26] MEDS: Losartan 25 MG TAB PO SCH (08:51)
[2020-08-26] MEDS: Furosemide 20 MG TAB PO SCH (08:52)
[2020-08-26] MEDS: Nystatin Powder 15 GM BOT TOP SCH (08:52)
[2020-08-26] MEDS: metFORMIN 500 MG TAB PO SCH (08:52)
[2020-08-26] MEDS: Cholestyramine/Aspartame 4 gm Packet PO SCH (08:59)
[2020-08-26] MEDS ORDERED: NIFEdipine XL 30 MG TAB PO SCH (09:00)
[2020-08-26 11:25] VITALS: TEMP 98.4
[2020-08-26] MEDS: Acetaminophen 325 MG TAB PO PRN (13:28)
[2020-08-26] MEDS: Mag-Al 1200 mg/1200 mg/30 ML UDCUP PO PRN (13:28)
[2020-08-26 17:25] VITALS: BP 169/77
== END 2020-08-26 18:03 | DRG 280 ==
LOC: ERS 21:45 → CCU 08-20 01:17 → 2NO 08-20 15:21
PROVIDERS: ADMIT Student in an Organized Health Care Education/Training Program; ATTEND Hospitalist
PROC: 4A023N7 Measurement of Cardiac Sampling and Pressure, Left Heart, Percutaneous Approach (ICD-10-PCS; principal; 2020-08-21)
PROC: B2111ZZ Fluoroscopy of Multiple Coronary Arteries using Low Osmolar Contrast (ICD-10-PCS; 2020-08-21)
DX: I21.4 Non-ST elevation (NSTEMI) myocardial infarction (principal); I50.31 Acute diastolic (congestive) heart failure; I13.0 Hypertensive heart and chronic kidney disease with heart failure and stage 1 through stage 4 chronic kidney disease, or unspecified chronic kidney disease; E27.40 Unspecified adrenocortical insufficiency; A04.72 Enterocolitis due to Clostridium difficile, not specified as recurrent; K51.90 Ulcerative colitis, unspecified, without complications; N17.9 Acute kidney failure, unspecified; E78.5 Hyperlipidemia, unspecified; E11.22 Type 2 diabetes mellitus with diabetic chronic kidney disease; R53.81 Other malaise; R21 Rash and other nonspecific skin eruption; E87.8 Other disorders of electrolyte and fluid balance, not elsewhere classified; D64.9 Anemia, unspecified; R15.9 Full incontinence of feces; I25.110 Atherosclerotic heart disease of native coronary artery with unstable angina pectoris; G47.33 Obstructive sleep apnea (adult) (pediatric); N18.2 Chronic kidney disease, stage 2 (mild); Z20.822 Contact with and (suspected) exposure to COVID-19; E66.01 Morbid (severe) obesity due to excess calories; E87.6 Hypokalemia; Z86.73 Personal history of transient ischemic attack (TIA), and cerebral infarction without residual deficits; Z88.8 Allergy status to other drugs, medicaments and biological substances; Z90.89 Acquired absence of other organs; Z68.32 Body mass index [BMI] 32.0-32.9, adult
CPT/HCPCS: 0240U; 36415; 36416; 51701; 71045; 74177; 80048; 80053; 80061; 81003; 81015; 82550; 82553; 83605; 83690; 83735; 83880; 84100; 84484; 85014; 85018; 85025; 85049; 86850; 86900; 86901; 87045; 87046; 87324; 87427; 87449; 93005; 93010; 93306; 93454; 94760; 96374; 96375; 99152; J0153; J1644; J1650; J1720; J1815; J2001; J2250; J2405; J3010; J3475; J3490; Q9967